=== PATIENT | male | born 1935 | race Caucasian/White ===

== ENCOUNTER 2017-12-11 16:21 | Inpatient (IN) | payer MEDICARE, BC ==
--- NOTE | 2017-12-11 16:45 | ED ---
General Adult HPI - General Chief complaint: Shortness of Breath Stated complaint: MALINI Time Seen by Provider: 12/11/17 16:26 Source: family, RN/MD, EMS, RN notes reviewed, old records reviewed Mode of arrival: wheelchair Limitations: altered mental status, physical limitation - History of Present Illness Initial comments: This is an 82-year-old male the ER for evaluation, patient's transfer patient accepted in transfer for respiratory failure COPD A. fib and CHF. Patient has severe shortness of breath tonight states much worse than normal, patient poor strain secondary to severe clinical condition - Related Data Home Medications Medication Instructions Recorded Confirmed Albuterol Nebulized [Ventolin 2.5 mg INHALATION RT-Q8H 11/10/14 12/11/17 Nebulized] Atenolol [Tenormin] 50 mg PO HS 11/10/14 12/11/17 Budesonide [Pulmicort Flexhaler] 1 - 2 puff INHALATION RT-BID 11/10/14 12/11/17 Cyanocobalamin [Vitamin B-12] 500 mcg PO BID 11/10/14 12/11/17 Montelukast [Singulair] 10 mg PO DAILY 11/10/14 12/11/17 Warfarin [Coumadin] 2.5 mg PO MOTUWETHFRSA 11/10/14 12/11/17 Warfarin [Coumadin] 5 mg PO POLLARD 11/10/14 12/11/17 Furosemide [Lasix] 40 mg PO DAILY 12/11/17 12/11/17 Ipratropium-Albuterol Nebulize 3 ml INHALATION RT-Q6H 12/11/17 12/11/17 [Duoneb 0.5 mg-3 mg/3 ml Soln] Allergies Allergy/AdvReac Type Severity Reaction Status Date / Time No Known Allergies Allergy Verified 12/11/17 16:38 Review of Systems ROS Statement: Those systems with pertinent positive or pertinent negative responses have been documented in the HPI. ROS Other: All systems not noted in ROS Statement are negative. Past Medical History Past Medical History: Atrial Fibrillation, Heart Failure, COPD, CVA/TIA, Osteoarthritis (OA), Prostate Disorder Additional Past Medical History / Comment(s): TIA-2006, home oxygen History of Any Multi-Drug Resistant Organisms: None Reported Additional Past Surgical History / Comment(s): PROSTATE SURGERY, JUSTA 11/11/2014 Past Anesthesia/Blood Transfusion Reactions: No Reported Reaction Past Psychological History: No Psychological Hx Reported Smoking Status: Former smoker Past Alcohol Use History: None Reported Past Drug Use History: None Reported - Past Family History Mother Additional Family Medical History / Comment(s): EMPHYSEMA General Exam Limitations: altered mental status, physical limitation General appearance: alert, in distress, obese Head exam: Present: atraumatic, normocephalic, normal inspection Eye exam: Present: normal appearance, PERRL, EOMI. Absent: scleral icterus, conjunctival injection, periorbital swelling ENT exam: Present: normal exam, mucous membranes moist Neck exam: Present: normal inspection. Absent: tenderness, meningismus, lymphadenopathy Respiratory exam: Present: respiratory distress, wheezes, accessory muscle use, decreased breath sounds, prolonged expiratory. Absent: rales, rhonchi, stridor Cardiovascular Exam: Present: normal rhythm, tachycardia, normal heart sounds. Absent: systolic murmur, diastolic murmur, rubs, gallop, clicks GI/Abdominal exam: Present: soft, normal bowel sounds. Absent: distended, tenderness, guarding, rebound, rigid Extremities exam: Present: normal inspection, full ROM, normal capillary refill. Absent: tenderness, pedal edema, joint swelling, calf tenderness Back exam: Present: normal inspection Neurological exam: Present: alert, oriented X3, CN II-XII intact Psychiatric exam: Present: normal affect, normal mood Skin exam: Present: warm, dry, intact, normal color. Absent: rash Course Vital Signs 12/11/17 16:22 Temperature 97.4 F L Pulse Rate 113 H Respiratory 26 H Rate Blood Pressure 136/72 O2 Sat by Pulse 81 L Oximetry - Reevaluation(s) Reevaluation #1: 12/11/17 16:44 Patient with severely low oxygen increased work of breathing here again placed on BiPAP oxygen level did improve the patient resting more comfortably. Critical Care Time Critical Care Time: Yes Total Critical Care Time: 31 Disposition Clinical Impression: Acute exacerbation of chronic obstructive airways disease, Acute pulmonary edema, Congestive heart failure, Hypoxia, Acute respiratory failure Disposition: ADMITTED IP TO THIS HOSP Condition: Serious Is patient prescribed a controlled substance at d/c from ED?: No Referrals: Mikael Nicole MD [Primary Care Provider] - 1-2 days
[2017-12-11 17:04] LABS: Basophils % (A) 0 %; Eosinophils % (A) 1 %; HCT 45.2 % (39.0-53.0); HGB 14.7 gm/dL (13.0-17.5); Lymphocytes # (A) 0.4 k/uL (1.0-4.8); Lymphocytes % (A) 6 %; MCH 32.6 pg (25.0-35.0); MCHC 32.5 g/dL (31.0-37.0); MCV 100.3 fL (80.0-100.0); Macrocytosis Slight; Mean Platelet Volume 8.4; Monocytes # (A) 0.3 k/uL (0-1.0); Monocytes % (A) 4 %; Neutrophils # (A) 6.5 k/uL (1.3-7.7); Neutrophils % (A) 88 %; Platelet Count 178 k/uL (150-450); RDW 13.6 % (11.5-15.5); WBC 7.4 k/uL (3.8-10.6)
[2017-12-11 17:16] LABS: ALT 35 U/L (21-72); AST 27 U/L (17-59); Albumin 4.1 g/dL (3.5-5.0); Alkaline Phosphatase 52 U/L (38-126); Blood Urea Nitrogen 21 mg/dL (9-20); Calcium 9.5 mg/dL (8.4-10.2); Chloride 89 mmol/L (98-107); Glucose 157 mg/dL (74-99); Phosphorus 4.8 mg/dL (2.5-4.5); Potassium 4.8 mmol/L (3.5-5.1); Sodium 141 mmol/L (137-145); Total Bilirubin 0.4 mg/dL (0.2-1.3); Total Protein 6.9 g/dL (6.3-8.2)
[2017-12-11 17:18] LABS: Creatine Kinase 61 U/L (55-170)
[2017-12-11 17:22] LABS: Anion Gap 11 mmol/L
[2017-12-11 17:25] LABS: Carbon Dioxide 41 mmol/L (22-30)
[2017-12-11 17:29] LABS: INR 1.8 (<1.2); Prothrombin Time 16.5 sec (9.0-12.0)
[2017-12-11 17:31] LABS: Troponin I <0.012 ng/mL (0.000-0.034)
[2017-12-11 17:32] LABS: Creatine Kinase MB 3.5 ng/mL (0.0-2.4)
[2017-12-11] MEDS: methylPREDNISolone SOD SUCCI 125 MG/2 ML VIAL IV SCH ×2 (18:36→23:13)
[2017-12-11] MEDS: FUROSEMIDE 10 MG/ML 4 ML VIAL IV SCH (20:17)
[2017-12-11] MEDS: IPRATROPIUM-ALBUTEROL 3 ML NEB INHALATION SCH (20:52)
[2017-12-12 06:04] LABS: Glucose,Whole Blood 132 mg/dL (75-99)
[2017-12-12] MEDS: INSULIN ASPART 100 UNIT/ML 1 ML 10 ML VIAL SQ SCH ×4 (06:12→21:11)
--- NOTE | 2017-12-12 06:13 | HP ---
HISTORY AND PHYSICAL DATE OF SERVICE: 12/11/2017 CHIEF COMPLAINT: The chief complaint is shortness of breath. HISTORY OF PRESENT ILLNESS: This 82-year-old gentleman with a past medical history of multiple medical problems including COPD, CHF, atrial fibrillation, being followed by Dr. Abiola Andino, was admitted to [facility] with complaints of shortness of breath. The patient had increase in shortness of breath and some change in mental status and patient was mostly unresponsive according to the family and the patient was found to have features of . Subsequently from the [facility], the patient was referred to [facility] and patient admitted for further evaluation and treatment. Patient was started on BiPAP 40%, 7 and14. The COPD and CHF was also considered as a cause of the present illness. Dr. Nicole is also following the patient closely. At the time of admission, the patient was found to have creatinine of 0.60 and the patient's saturation is 94% on BiPAP at this time. The patient unable to give coherent history because of BiPAP and change in mental status, most history by my discussion with staff and review of the chart and discussion with family members at the bedside. PAST MEDICAL HISTORY: History of atrial fibrillation, history of CHF, COPD, CVA, TIA, DJD, history of prostate disorder, history of TIA. MEDICATIONS: Medications include: 1. Albuterol 2.5 q.8. 2. Coumadin 5 mg p.o. Sunday. 3. Lasix 40 mg p.o. daily. 4. Vitamin B12, 500 mcg p.o. b.i.d. 5. Coumadin 2.5 mg Sunday, Sunday, Sunday, , Sunday, Sunday. 6. Singulair 10 mg daily. 7. DuoNeb q.6 hours. 8. Pulmicort 1 to 2 puffs b.i.d. 9. Tenormin 50 mg q.h.s. ALLERGIES: Allergies are none. FAMILY HISTORY: History of COPD, CHF, emphysema in the family. SOCIAL HISTORY: Previous history of smoking. Occasional alcohol intake. REVIEW OF SYSTEMS: Review of systems could not be taken at length because of the above-mentioned reasons. PHYSICAL EXAMINATION: Patient is conscious. Pulse 95. Mildly confused. Blood pressure 132/60, respirations 33, temperature 98.7, pulse ox 94% on BiPAP. HEENT: Conjunctivae normal. Oral mucosa moist. Neck is no jugular venous distention. No carotid bruit. No lymph node enlargement. CARDIOVASCULAR: S1, S2 muffled. RESPIRATORY: Breath sounds diminished in the bases. A few scattered rhonchi and crackles. The patient is on BiPAP. Expiratory wheezing also present. ABDOMEN: Soft, obese, nontender. No mass palpable. LEGS: No edema, no swelling. NERVOUS SYSTEM: Higher functions as mentioned earlier. Moves all 4 limbs. No focal motor or sensory deficits. LYMPHATICS: No lymphadenopathy of the neck, axillae or groin. SKIN: No ulcer, rash or bleeding. LABS: Labs are at this time WBC 7.4, hemoglobin 14.7, MCV 100.3. INR 1.8. ASSESSMENT: 1. Shortness of breath multifactorial with possible chronic obstructive pulmonary disease acute exacerbation as well as congestive heart failure acute exacerbation with acute hypoxic hypercarbic respiratory failure on BiPAP. 2. Bilateral lesions in the frontoparietal white matter. The CT scan elsewhere also showed mild lesions possibly indicating a stroke also which might explain the change in mental status, which could be multifactorial as well. 3. afib 4. djd 5. h/o nicotime dependence 6. metabolic encephalopathy RECOMMENDATIONS AND DISCUSSION: I would recommend intensive bronchodilators, IV steroids, empiric antibiotics, cardiology pulmonology consultations. I would also recommend evaluation by Neurology. Patient is not a candidate for MRI at this time. Currently patient on BiPAP. Once the patient is improved that may be an option. Otherwise resume the rest of medications, DVT prophylaxis. Overall prognosis extremely guarded at this time because of multiple complex medical issues, which I discussed at length with the family who understood and agreed and further recommendations to follow. A copy of dictation forwarded to Dr. Nicole who is the primary physician. MMODL / IJN: [id number] / ANDRES
[2017-12-12] MEDS: methylPREDNISolone SOD SUCCI 125 MG/2 ML VIAL IV SCH ×4 (06:14→23:11)
[2017-12-12 06:26] LABS: Basophils % (A) 0 %; Eosinophils % (A) 0 %; HCT 40.3 % (39.0-53.0); HGB 13.5 gm/dL (13.0-17.5); Lymphocytes # (A) 0.4 k/uL (1.0-4.8); Lymphocytes % (A) 10 %; MCH 32.8 pg (25.0-35.0); MCHC 33.4 g/dL (31.0-37.0); Mean Platelet Volume 8.3; Monocytes # (A) 0.2 k/uL (0-1.0); Monocytes % (A) 4 %; Neutrophils # (A) 3.5 k/uL (1.3-7.7); Neutrophils % (A) 84 %; Platelet Count 170 k/uL (150-450); RBC 4.11 m/uL (4.30-5.90); RDW 13.9 % (11.5-15.5); WBC 4.1 k/uL (3.8-10.6)
[2017-12-12 06:33] LABS: INR 2.2 (<1.2); Prothrombin Time 20.2 sec (9.0-12.0)
[2017-12-12 06:38] LABS: Blood Urea Nitrogen 19 mg/dL (9-20); Calcium 9.4 mg/dL (8.4-10.2); Chloride 86 mmol/L (98-107); Glucose 143 mg/dL (74-99); Potassium 4.6 mmol/L (3.5-5.1); Sodium 140 mmol/L (137-145)
[2017-12-12 06:45] LABS: Anion Gap 10 mmol/L
[2017-12-12 06:49] LABS: Carbon Dioxide 44 mmol/L (22-30)
[2017-12-12] MEDS: FORMOTEROL FUMARATE 20 MCG/2 ML NEBU INHALATION SCH ×2 (08:14→20:25)
[2017-12-12] MEDS: BUDESONIDE 1 MG/2 ML NEBU INHALATION SCH ×2 (08:14→20:25)
[2017-12-12] MEDS: IPRATROPIUM-ALBUTEROL 3 ML NEB INHALATION SCH ×4 (08:14→20:25)
[2017-12-12] MEDS ORDERED: HEPARIN SODIUM,PORCINE 5,000 UNIT/ML 1 ML VIAL SQ SCH (09:00)
[2017-12-12] MEDS: PANTOPRAZOLE 40 MG TABLET PO SCH (09:20)
[2017-12-12] MEDS: MONTELUKAST 10 MG TAB PO SCH (09:20)
[2017-12-12] MEDS: FUROSEMIDE 10 MG/ML 4 ML VIAL IV SCH (09:20)
[2017-12-12] MEDS: AZITHROMYCIN 500 MG TAB PO SCH (09:20)
[2017-12-12] MEDS: CYANOCOBALAMIN 500 MCG TAB PO SCH ×2 (09:20→21:11)
[2017-12-12 11:05] LABS: Hemoglobin A1C 5.7 % (4.0-6.0)
--- NOTE | 2017-12-12 11:36 | P.CNPUL ---
History of Present Illness Consult date: 12/12/17 Reason for consult: dyspnea, COPD, hypoxemia Chief complaint: Shortness of breath, altered mental status History of present illness: This is an 82-year-old gentleman who presented from an outside hospital with altered mental status and shortness of breath. History is taken from the family as the patient does not remember what happened to him. The patient states "my made me come." Per the patient's he had been short of breath for several days and tried to go to pulmonary rehab. The patient had hypoxemia as well as confusion. He was subsequently taken to [facility] and transferred to [facility]. The patient does follow with Dr. GUDELIA King in the office and saw him 3 weeks ago. He does have a history of COPD, CHF, atrial fibrillation. He uses duo nebs and Pulmicort at home. He also takes Singulair. He is complaining of wheezing. He denies cough. However his does note that he coughs up clear mucus but this has been ongoing for several years. He is a former smoker he used to smoke 2 packs per day for 50 years. He quit in 2006. He does wear oxygen at 2 L nasal cannula [id number]. 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 He is also complaining of right greater than left lower extremity swelling. The patient was placed on BiPAP overnight. He is currently off of BiPAP and is on 4 L nasal cannula. His mentation appears to be improving although he has no memory of the events from yesterday. Review of Systems All systems: negative Past Medical History Past Medical History: Atrial Fibrillation, Heart Failure, COPD, CVA/TIA, Osteoarthritis (OA), Prostate Disorder Additional Past Medical History / Comment(s): TIA-2003, home oxygen 2 liters n/c , hx atrial septal defect History of Any Multi-Drug Resistant Organisms: None Reported Past Surgical History: Heart Catheterization Additional Past Surgical History / Comment(s): PROSTATE SURGERY(turp), JUSTA 2014 percutaneous closure of atrial septal defect, anibal cataracts Past Anesthesia/Blood Transfusion Reactions: No Reported Reaction Smoking Status: Former smoker - Past Family History Father Family Medical History: Myocardial Infarction ([place]) Mother Family Medical History: Congestive Heart Failure (CHF), COPD Additional Family Medical History / Comment(s): EMPHYSEMA Medications and Allergies Home Medications Medication Instructions Recorded Confirmed Type Albuterol Nebulized [Ventolin 2.5 mg INHALATION RT-Q8H 11/10/14 12/11/17 History Nebulized] Atenolol [Tenormin] 50 mg PO HS 11/10/14 12/11/17 History Budesonide [Pulmicort Flexhaler] 1 - 2 puff INHALATION RT-BID 11/10/14 12/11/17 History Cyanocobalamin [Vitamin B-12] 500 mcg PO BID 11/10/14 12/11/17 History Montelukast [Singulair] 10 mg PO DAILY 11/10/14 12/11/17 History Warfarin [Coumadin] 2.5 mg PO MOTUWETHFRSA 11/10/14 12/11/17 History Warfarin [Coumadin] 5 mg PO POLLARD 11/10/14 12/11/17 History Furosemide [Lasix] 40 mg PO DAILY 12/11/17 12/11/17 History Ipratropium-Albuterol Nebulize 3 ml INHALATION RT-Q6H 12/11/17 12/11/17 History [Duoneb 0.5 mg-3 mg/3 ml Soln] Allergies Allergy/AdvReac Type Severity Reaction Status Date / Time No Known Allergies Allergy Verified 12/11/17 16:38 Physical Exam Osteopathic Statement: *. No significant issues noted on an osteopathic structural exam other than those noted in the History and Physical/Consult. Vitals: Vital Signs Temp Pulse Pulse Resp BP BP Pulse Ox 12/12/17 08:35 100 12/12/17 08:30 96 12/12/17 08:29 96 12/12/17 08:20 97.4 F L 90 20 125/79 92 L 12/12/17 08:17 92 12/12/17 04:00 96.9 F L 86 30 H 129/65 95 12/12/17 00:00 97.8 F 95 34 H 110/63 94 L 12/11/17 21:11 101 H 12/11/17 21:00 99 12/11/17 20:00 98.7 F 95 33 H 132/60 94 L 12/11/17 17:56 97.4 F L 113 H 26 H 136/72 81 L 12/11/17 16:41 26 H 12/11/17 16:22 97.4 F L 113 H 26 H 136/72 81 L Intake and Output 12/11/17 12/12/17 12/12/17 22:59 06:59 14:59 Output Total 925 600 Balance -925 -600 Output: Urine 925 600 Other: Voiding Method Urinal Urinal # Voids 1 1 Weight 83.915 kg 86 kg Gen.: Patient is alert, pleasantly confused Cardiovascular: Irregular rate and rhythm, S1/S2 Lungs: Diffuse bilateral wheezing Abdomen: Soft nontender nondistended positive bowel sounds Extremities: Right greater than left lower extremity edema Results - Laboratory Findings CBC and BMP: 12/12/17 06:00 12/12/17 06:00 PT/INR, D-dimer PT 20.2 sec (9.0-12.0) H 12/12/17 06:00 INR 2.2 (<1.2) H 12/12/17 06:00 Abnormal lab findings: Abnormal Labs 12/11/17 12/11/17 12/11/17 16:40 16:40 16:40 RBC MCV 100.3 H Lymphocytes # 0.4 L PT INR Chloride 89 L Carbon Dioxide 41 H* BUN 21 H Creatinine 0.60 L Glucose 157 H POC Glucose (mg/dL) Plasma Lactic Acid Ricco Phosphorus 4.8 H CK-MB (CK-2) 3.5 H* 12/11/17 12/11/17 12/12/17 16:40 16:40 06:00 RBC 4.11 L MCV Lymphocytes # 0.4 L PT 16.5 H INR 1.8 H Chloride Carbon Dioxide BUN Creatinine Glucose POC Glucose (mg/dL) Plasma Lactic Acid Ricco 2.5 H* Phosphorus CK-MB (CK-2) 12/12/17 12/12/17 12/12/17 06:00 06:00 06:02 RBC MCV Lymphocytes # PT 20.2 H INR 2.2 H Chloride 86 L Carbon Dioxide 44 H* BUN Creatinine 0.60 L Glucose 143 H POC Glucose (mg/dL) 132 H Plasma Lactic Acid Ricco Phosphorus CK-MB (CK-2) Assessment and Plan Assessment: Acute on chronic hypoxic and hypercapnic respiratory failure Acute exacerbation of COPD Metabolic encephalopathy History of tobacco abuse Atrial fibrillation with controlled ventricular response 2/4 SIRS with elevated lactic acid, suspect sepsis, source unclear History of CHF, diastolic Possible CVA Environmental ALLERGIES History of ASD, s/p repair Coumadin coagulopathy History of CVA/TIA Lower extremity edema Obesity Hyperglycemia O2 to maintain saturation greater than or equal to 90% Bipap nightly and PRN Duo nebs and Pulmicort/Perforomist Singulair Lower extremity Doppler ultrasound Chest x-ray now Blood, urine, sputum cultures ABX: Azithromycin and Rocephin Solumedrol taper Coumadin dosing for INR 2-3 GI and DVT prophylaxis Incentive spirometry and pulmonary hygiene CT brain - neurology recommendations Cardiology recommendations Echocardiogram and carotid dopplers pending Thank you for this consultation. We will continue to follow along.
--- NOTE | 2017-12-12 11:37 | P.CRDCN ---
History of Present Illness History of present illness: Mr. 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 He has normal coronary arteries per heart catheterization 2010. He follows with Dr. Quintero in the office. We have been asked to see him in consultation for symptoms of heart failure. He is somewhat of a poor historian, his is a the bedside giving history. Per his he has been getting increasing weak, fatigued and short of breath over the previous few days. She states he has been short of breath more so than usual and he has been dropping things, unable to feed himself and just generally weak. He attends pulmonary rehab twice per week and while at a session yesterday it was recommended he be evaluated in the ED. They went to [facility] and he was ultimately sent here for respiratory failure with low oxygen saturation in the low 80's. He was immediately placed on BiPAP and showed improvement in his breathing status as well as his mentation per the ED note. He was also started on antibiotics and IV lasix. CT of the brain was performed at [place] which raised some question of possible CVA, neurology has been consulted as well. He is seen and examined resting comfortably in bed in no acute distress. He denies ever having symptoms of chest pain, palpitations , nausea, vomiting or diaphoresis. He is currently on oxygen via nasal cannula. EKG reveals atrial fibrillation with controlled ventricular response, heart rate 86. Laboratory data reviewed, hgb 13.5, plt 170, INR 2.2, sodium 140, potassium 4.6 , creatinine 0.6, CO2 44, magnesium 2.0, lactic acid on admission 2.5 with repeat 2.0, cardiac enzymes negative x1, proBNP 1360. Current cardiac medications include Coumadin 5 mg daily on Sunday and 2.5 mg every other day of the week, Lasix 40 mg daily and atenolol 50 mg daily. Most recent echocardiogram performed in the office 04/26/2017 reveals normal ejection fraction, aortic sclerosis, moderate TR and moderate MR. Most recent carotid duplex performed in the office 2015 reveals mild disease b/ l ICA's. Review of Systems At the time of my exam: CONSTITUTIONAL: Denies fever. Denies chills. EYES: Denies blurred vision. Denies vision changes. Denies eye pain. EARS, NOSE, MOUTH & THROAT: Denies headache. Denies sore throat. Denies ear pain. CARDIOVASCULAR: Denies chest pain. Denies shortness of breath. Denies orthopnea. Denies PND. Denies palpitations. RESPIRATORY: Denies cough. GASTROINTESTINAL: Denies abdominal pain. Denies diarrhea. Denies constipation. Denies nausea. Denies vomiting. MUSCULOSKELETAL: Denies myalgias. INTEGUMENTARY: Denies pruitis. Denies rash. NEUROLOGIC: Denies numbness. Denies tingling. Denies weakness. PSYCHIATRIC: Denies anxiety. Denies depression. ENDOCRINE: Denies fatigue. Denies weight change. Denies polydipsia. Denies polyurina. GENITOURINARY: Denies burning, hematuria or urgency with micturation. HEMATOLOGIC: Denies history of anemia. Denies bleeding. Past Medical History Past Medical History: Atrial Fibrillation, Heart Failure, COPD, CVA/TIA, Osteoarthritis (OA), Prostate Disorder Additional Past Medical History / Comment(s): TIA-2003, home oxygen 2 liters n/c , hx atrial septal defect History of Any Multi-Drug Resistant Organisms: None Reported Past Surgical History: Heart Catheterization Additional Past Surgical History / Comment(s): PROSTATE SURGERY(turp), JUSTA 2014 percutaneous closure of atrial septal defect, anibal cataracts Past Anesthesia/Blood Transfusion Reactions: No Reported Reaction Smoking Status: Former smoker - Past Family History Father Family Medical History: Myocardial Infarction (LA) Mother Family Medical History: Congestive Heart Failure (CHF), COPD Additional Family Medical History / Comment(s): EMPHYSEMA Medications and Allergies Home Medications Medication Instructions Recorded Confirmed Type Albuterol Nebulized [Ventolin 2.5 mg INHALATION RT-Q8H 11/10/14 12/11/17 History Nebulized] Atenolol [Tenormin] 50 mg PO HS 11/10/14 12/11/17 History Budesonide [Pulmicort Flexhaler] 1 - 2 puff INHALATION RT-BID 11/10/14 12/11/17 History Cyanocobalamin [Vitamin B-12] 500 mcg PO BID 11/10/14 12/11/17 History Montelukast [Singulair] 10 mg PO DAILY 11/10/14 12/11/17 History Warfarin [Coumadin] 2.5 mg PO MOTUWETHFRSA 11/10/14 12/11/17 History Warfarin [Coumadin] 5 mg PO POLLARD 11/10/14 12/11/17 History Furosemide [Lasix] 40 mg PO DAILY 12/11/17 12/11/17 History Ipratropium-Albuterol Nebulize 3 ml INHALATION RT-Q6H 12/11/17 12/11/17 History [Duoneb 0.5 mg-3 mg/3 ml Soln] Allergies Allergy/AdvReac Type Severity Reaction Status Date / Time No Known Allergies Allergy Verified 12/11/17 16:38 Physical Exam Vitals: Vital Signs Temp Pulse Pulse Resp BP BP Pulse Ox 12/12/17 08:35 100 12/12/17 08:30 96 12/12/17 08:29 96 12/12/17 08:17 92 12/12/17 04:00 96.9 F L 86 30 H 129/65 95 12/12/17 00:00 97.8 F 95 34 H 110/63 94 L 12/11/17 21:11 101 H 12/11/17 21:00 99 12/11/17 20:00 98.7 F 95 33 H 132/60 94 L 12/11/17 17:56 97.4 F L 113 H 26 H 136/72 81 L 12/11/17 16:41 26 H 12/11/17 16:22 97.4 F L 113 H 26 H 136/72 81 L Intake and Output 12/11/17 12/12/17 12/12/17 22:59 06:59 14:59 Output Total 925 600 Balance -925 -600 Output: Urine 925 600 Other: Voiding Method Urinal # Voids 1 1 Weight 83.915 kg 86 kg Blood presure 129/65 heart rate 86 afebrile GENERAL: This is a 82-year-old male in no apparent distress at the time of my examination. HEENT: Head is atraumatic, normocephalic. Pupils are equal, round. Sclerae anicteric. Conjunctivae are clear. Mucous membranes of the mouth are moist. Neck is supple. There is no jugular venous distention. No carotid bruit is heard. LUNGS: Clear to auscultation no wheezes, rales or rhonchi. No chest wall tenderness is noted on palpation or with deep breathing. Diminished air entry bilaterally. HEART: Irregular rate and rhythm with systolic murmur at the apex, no rubs or gallops. S1 and S2 heard. ABDOMEN: Soft, nontender. Bowel sounds are heard. No organomegaly noted. EXTREMITIES: No evidence of peripheral edema and no calf tenderness noted. VASCULAR: Radial and dorsalis pedis pulses palpated, no evidence of clubbing. NEUROLOGIC: Patient is awake, alert and oriented 2-3. Unaware of events that brought him in to the hospital. Results 12/12/17 06:00 12/12/17 06:00 Cardiac Enzymes 12/11/17 12/11/17 Range/Units 16:40 16:40 AST 27 (17-59) U/L CK-MB (CK-2) 3.5 H* (0.0-2.4) ng/mL Troponin I <0.012 (0.000-0.034) ng/mL Coagulation 12/11/17 12/12/17 Range/Units 16:40 06:00 PT 16.5 H 20.2 H (9.0-12.0) sec APTT 26.0 (22.0-30.0) sec CBC 12/11/17 12/12/17 Range/Units 16:40 06:00 WBC 7.4 4.1 (3.8-10.6) k/uL RBC 4.50 4.11 L (4.30-5.90) m/uL Hgb 14.7 13.5 (13.0-17.5) gm/dL Hct 45.2 40.3 (39.0-53.0) % Plt Count 178 170 (150-450) k/uL Comprehensive Metabolic Panel 12/11/17 12/12/17 Range/Units 16:40 06:00 Sodium 141 140 (137-145) mmol/L Potassium 4.8 4.6 (3.5-5.1) mmol/L Chloride 89 L 86 L (98-107) mmol/L Carbon Dioxide 41 H* 44 H* (22-30) mmol/L BUN 21 H 19 (9-20) mg/dL Creatinine 0.60 L 0.60 L (0.66-1.25) mg/dL Glucose 157 H 143 H (74-99) mg/dL Calcium 9.5 9.4 (8.4-10.2) mg/dL AST 27 (17-59) U/L ALT 35 (21-72) U/L Alkaline Phosphatase 52 (38-126) U/L Total Protein 6.9 (6.3-8.2) g/dL Albumin 4.1 (3.5-5.0) g/dL Current Medications Generic Name Dose Route Start Last Admin Trade Name Jesus PRN Reason Stop Dose Admin Albuterol/Ipratropium 3 ml 12/11/17 20:00 12/12/17 08:14 Duoneb 0.5 Mg-3 Mg/3 Ml Soln INHALATION 3 ml RT-QID AUDREY Administration Atenolol 50 mg 12/12/17 21:00 Tenormin PO HS [facility] Azithromycin 500 mg 12/12/17 09:00 12/12/17 09:20 Zithromax PO 500 mg DAILY AUDREY Administration Budesonide 1 mg 12/12/17 08:00 12/12/17 08:14 Pulmicort INHALATION 1 mg RT-BID AUDREY Administration Cyanocobalamin 500 mcg 12/12/17 09:00 12/12/17 09:20 Vitamin B-12 PO 500 mcg BID AUDREY Administration Formoterol Fumarate 20 mcg 12/12/17 08:00 12/12/17 08:14 Perforomist INHALATION 20 mcg RT-BID AUDREY Administration Furosemide 40 mg 12/11/17 21:00 12/12/17 09:20 Lasix IV 40 mg Q12H AUDREY Administration Insulin Aspart 0 unit 12/12/17 07:30 12/12/17 06:12 Novolog SQ Not Given ACHS [facility] Protocol Methylprednisolone Sodium Succinate 60 mg 12/11/17 18:00 12/12/17 06:14 Solu-Medrol IV 60 mg Q6HR AUDREY Administration Montelukast Sodium 10 mg 12/12/17 09:00 12/12/17 09:20 Singulair PO 10 mg DAILY AUDREY Administration Pantoprazole Sodium 40 mg 12/12/17 07:30 12/12/17 09:20 Protonix PO 40 mg [id number]-[id number] AUDREY Administration Warfarin Sodium 5 mg 12/16/17 18:00 Coumadin PO [email or web address] AUDREY Warfarin Sodium 2.5 mg 12/12/17 18:00 Coumadin PO [email or web address] [facility] Intake and Output 12/11/17 12/12/17 12/12/17 22:59 06:59 14:59 Output Total 925 600 Balance -925 -600 Output: Urine 925 600 Other: Voiding Method Urinal # Voids 1 1 Weight 83.915 kg 86 kg 12/12/17 06:00 12/12/17 06:00 Assessment and Plan Assessment: ASSESSMENT 1. Acute hypoxic, hypercapnic respiratory failure 2. Chronic persistent atrial fibrillation on mcc anticoagulation 3. Severe end stage COPD on home oxygen 4. Hypertension 5. History of ASD closure with amplatzer device 2014 6. Former nicotine dependence PLAN Obtain 2D echocardiogram and doppler study to assess cardiac structure and function. No evidence of acute heart failure. Ongoing medical management. Continue with coumadin, atenolol and PO lasix. Thank you kindly for this consultation. Nurse Practitioner note has been reviewed, I agree with a documented findings and plan of care. Patient was seen and examined.
--- NOTE | 2017-12-12 11:49 | XR ---
EXAMINATION TYPE: XR chest 1V portable DATE OF EXAM: 12/12/2017 HISTORY: Shortness of breath. COMPARISON: 12/12/2014 TECHNIQUE: Single view of the chest is submitted. FINDINGS: Demonstrated are scattered senescent parenchymal change. There is no evidence for focal infiltrate. The heart is stable. Hilar and mediastinal structures are within normal limits. Degenerative changes are seen of the dorsal spine. IMPRESSION: 1. Chronic changes without evidence for acute pulmonary disease.
[2017-12-12 11:56] LABS: Glucose,Whole Blood 234 mg/dL (75-99)
--- NOTE | 2017-12-12 13:31 | CT ---
EXAMINATION TYPE: CT brain wo con DATE OF EXAM: 12/12/2017 COMPARISON: NONE HISTORY: Altered mental status CT DLP: 1047.10 mGycm Automated exposure control for dose reduction was used. TECHNIQUE: CT scan of the head is performed without contrast. FINDINGS: There is no acute intracranial hemorrhage or midline shift identified. There is diffuse v entricular and sulcal prominence consistent with diffuse age-related cerebral atrophy. There is low- attenuation in the periventricular white matter consistent with chronic small vessel ischemic change. The globes are intact and the visualized sinuses are clear other than a left maxillary inferior sin us 8mm mucosal retention cyst. IMPRESSION: No acute intracranial hemorrhage or midline shift. There is diffuse age-related cerebra l atrophy and chronic small vessel ischemic change noted.
[2017-12-12 14:35] VITALS: BMI 26.4
--- NOTE | 2017-12-12 14:45 | ECHOF ---
Referral Reason:Stroke MEASUREMENTS -------- HEIGHT: 162.6 cm WEIGHT: 85.7 kg BP: 129/65 RVIDd: 5.1 cm (< 3.3) IVSd: 1.3 cm (0.6 - 1.1) LVIDd: 4.5 cm (3.9 - 5.3) LVPWd: 1.0 cm (0.6 - 1.1) IVSs: 1.4 cm LVIDs: 3.0 cm LVPWs: 1.6 cm LA Diam: 4.8 cm (2.7 - 3.8) LAESV Index (A-L): 59.65 ml/m Ao Diam: 3.8 cm (2.0 - 3.7) MV EXCURSION: 18.351 mm (> 18.000) MV EF SLOPE: 120 mm/s (70 - 150) EPSS: 0.6 cm MV E Thomas: 1.10 m/s MV DecT: 115 ms MV A Thomas: 0.00 m/s MV E/A Ratio: 250.54 RAP: 15.00 mmHg RVSP: 60.88 mmHg FINDINGS -------- Atrial fibrillation. This was a technically adequate study. The left ventricular size is normal. There is borderline concentric left ventricular hypertrophy. Overall left ventricular systolic function is low-normal with, an EF between 50 - 55 %. The right ventricle is severely enlarged. The right ventricular systolic function is mildly impaire d. LA is severely dilated >40 ml/m2 The right atrial size is normal. There is an interatrial closure device in place without evidence of shunt. There is mild aortic valve sclerosis. Mild mitral annular calcification present. Qrqf-rb-togifhib mitral regurgitation is present. Mild tricuspid regurgitation present. There is moderate to severe pulmonary hypertension. The rig ht ventricular systolic pressure, as measured by Doppler, is 60.88mmHg. Trace/mild (physiologic) pulmonic regurgitation. The aortic root size is normal. The inferior vena cava is mildly dilated. There is no pericardial effusion. CONCLUSIONS -------- 1. Atrial fibrillation. 2. This was a technically adequate study. 3. The left ventricular size is normal. 4. There is borderline concentric left ventricular hypertrophy. 5. Overall left ventricular systolic function is low-normal with, an EF between 50 - 55 %. 6. The right ventricle is severely enlarged. 7. The right ventricular systolic function is mildly impaired. 8. LA is severely dilated >40 ml/m2 9. The right atrial size is normal. 10. There is an interatrial closure device in place without evidence of shunt. 11. There is mild aortic valve sclerosis. 12. Mild mitral annular calcification present. 13. Kelb-tz-rxxahcva mitral regurgitation is present. 14. Mild tricuspid regurgitation present. 15. There is moderate to severe pulmonary hypertension. 16. Trace/mild (physiologic) pulmonic regurgitation. 17. The aortic root size is normal. 18. The inferior vena cava is mildly dilated. 19. There is no pericardial effusion. OPERATIONS ACCOUNTANT: Lucille Narvaez RDCS
--- NOTE | 2017-12-12 15:41 | US ---
EXAMINATION TYPE: US carotid duplex BILAT DATE OF EXAM: 12/12/2017 COMPARISON: NONE CLINICAL HISTORY: stroke. Possible stroke yesterday. EXAM MEASUREMENTS: RIGHT: Peak Systolic Velocity (PSV) cm/sec ----- Right CCA: 70.9 ----- Right ICA: 104.3 ----- Right ECA: 106.9 ICA/CCA ratio: 1.5 RIGHT: End Diastole cm/sec ----- Right CCA: 11.1 ----- Right ICA: 24.1 ----- Right ECA: 4.7 LEFT: Peak Systolic Velocity (PSV) cm/sec ----- Left CCA: 83.1 ----- Left ICA: 45.3 ----- Left ECA: 92.2 ICA/CCA ratio: 0.5 LEFT: End Diastole cm/sec ----- Left CCA: 11.7 ----- Left ICA: 11.3 ----- Left ECA: 16.4 VERTEBRALS (direction of flow): Right Vertebral: Antegrade Left Vertebral: Antegrade Rhythm: Arrhythmia IMPRESSION: No elevated velocities or significant stenosis. Bilateral wall thickening. Plaque seen in right ECA, ICA and bilateral bulbs. Criteria for Assigning % of Stenosis / Diameter reduction (Estimation based on the indirect measurements of the internal carotid artery velocities (ICA PSV). 1. Normal (no stenosis)=ICA PSV < 125 cm/s: ratio < 2.0: ICA EDV<40 cm/s. 2. Less than 50% stenosis=ICA PSV < 125 cm/s: ratio < 2.0: ICA EDV<40 cm/s. 3. 50 to 69% stenosis=ICA PSV of 125 to 230 cm/s: ration 2.0 ? 4.0: ICA EDV 40-100 cm/s. 4. Greater than 70% stenosis to near occlusion= ICA PSV > 230 cm/s: ratio > 4.0: ICA EDV > 100 cm/s. 5. Near occlusion= ICA PSV velocities may be low or undetectable: variable ratio and ICA EDV. 6. Total occlusion=unable to detect flow.
--- NOTE | 2017-12-12 15:41 | US ---
EXAMINATION TYPE: US venous doppler duplex LE BI DATE OF EXAM: 12/12/2017 3:20 PM COMPARISON: NONE CLINICAL HISTORY: rule out DVT. Patient states right leg appears bigger than left. No hx of blood cl ots. No pain. No redness. SIDE PERFORMED: Bilateral TECHNIQUE: The lower extremity deep venous system is examined utilizing real time linear array sonog duane with graded compression, doppler sonography and color-flow sonography. VESSELS IMAGED: External Iliac Vein (EIV) Common Femoral Vein Deep Femoral Vein Greater Saphenous Vein * Femoral Vein Popliteal Vein Proximal Calf Veins (* superficial vessels) Grayscale, color doppler, spectral doppler imaging performed of the deep veins of the lower extremiti es. There is normal flow, compressibility, vascular waveforms. Right Leg: Negative for DVT Left Leg: Negative for DVT IMPRESSION: No evidence for DVT.
[2017-12-12 15:49] LABS: Appearance,Urine Clear (Clear); Bilirubin,Urine Negative (Negative); Blood,Urine Negative (Negative); Color,Urine Yellow; Glucose,Urine (UA) Negative (Negative); Ketones,Urine Negative (Negative); Leukocyte Esterase,Urine Negative (Negative); Nitrite,Urine Negative (Negative); PH, Urine 6.5 (5.0-8.0); Protein,Urine Negative (Negative); Urobilinogen,Urine <2.0 mg/dL (<2.0)
[2017-12-12 16:37] LABS: Glucose,Whole Blood 131 mg/dL (75-99)
--- NOTE | 2017-12-12 17:07 | PN ---
PROGRESS NOTE DATE OF SERVICE: 12/12/2017 This 82-year-old gentleman referred from [facility] was admitted with shortness of breath which is probably multifactorial, COPD acute exacerbation. Patient also had acute hypoxic hypercarbic respiratory failure. Patient is on BiPAP last night. Yesterday, the patient is much better, more alert. The patient also has some confusion elsewhere. The possibility of stroke was considered, but the repeat CAT scan showed diffuse atrophy with not much objective changes. The patient closely monitored by Cardiology and Pulmonology also. Two-D echo showed multiple valve abnormalities , normal ejection fraction. Chronic diastolic dysfunction was suspected. Dr. Nicole is following the patient in the outpatient setting. As mentioned earlier patient is on BiPAP last night, currently saturating well on nasal cannula. The neurovascular workup is underway. Neurology consultation also pending at this time. PAST MEDICAL HISTORY: Reviewed. REVIEW OF SYSTEMS: CARDIOVASCULAR: No angina. RESPIRATORY: As mentioned earlier. GI: No nausea. : No dysuria. NERVOUS SYSTEM: No numbness or weakness. CURRENT MEDICATIONS: Reviewed and include: 1. DuoNeb q.i.d. and p.r.n. 2. Tenormin 50 mg q.6. 3. Zithromax 500 mg daily. 4. Pulmicort 1 mg b.i.d. 5. Vitamin B12 500 mcg p.o. 6. Perforomist 20 mcg b.i.d. 7. Lasix 40 mg p.o. daily. 8. NovoLog scale. 9. Solu-Medrol 60 IV q.6 hours. 10.Singulair. 11.Protonix. 12.Coumadin 2.5 mg and 5 mg. PHYSICAL EXAM: Patient is alert, oriented x3. Pulse 104, blood pressure 120/60, respiration 18, temperature 97.7, pulse ox 98% on 4 L. HEENT: Conjunctivae normal. Oral mucosa moist. Neck is no jugular venous distention. No carotid bruit. No lymph node enlargement. CARDIOVASCULAR: S1, S2. No S3, no S4. RESPIRATORY: Breath sounds diminished in the bases. A few scattered rhonchi, expiratory wheezing and crackles. ABDOMEN: Soft, nontender. No mass palpable. LEGS: No edema, no swelling. NERVOUS SYSTEM: Higher functions as mentioned earlier. Moves all 4 limbs. No focal motor or sensory deficits. LYMPHATICS: No lymphadenopathy in the neck, axillae, groin. SKIN: No ulcer, rash or bleeding. LABS: CBC within normal limits. INR is 2.2. Sodium 140, potassium 4.6, CO2 is 44, glucose 143 and 234 and NT proBNP is 1360. ASSESSMENT: 1. Shortness of breath with possible chronic obstructive pulmonary disease acute exacerbation with acute hypoxic hypercapnic respiratory failure with acute purulent tracheobronchitis. 2. Change in mental status, possible acute metabolic encephalopathy with_of bilateral frontal lobe lesions. 3. Possible congestive heart failure with chronic diastolic dysfunction. 4. History of atrial fibrillation. 5. History of degenerative joint disease. 6. History of prostate disorder. 7. History of transient ischemic attack. 8. Remote history of nicotine dependence. RECOMMENDATIONS AND DISCUSSION: This 82-year-old gentleman who presented with multiple complex medical issues, we will monitor the patient closely, continue the current management and treatment. Otherwise at this time, I recommend continue with current medications, neurovascular workup and if neurovascular workup is positive also recommend to add antiplatelet agents. Closely monitor with the current medications. Intensive bronchodilator treatment. Broad - spectrum IV antibiotics. Closely monitor. IV steroids. Further recommendations to follow. MMODL / IJN: [id number] / ANDRES
[2017-12-12] MEDS: cefTRIAXone IN SWFI 1,000 MG/10 ML SYRINGE IVP SCH (17:08)
[2017-12-12] MEDS: WARFARIN 2.5 MG TAB PO SCH (17:09)
[2017-12-12 20:29] LABS: Glucose,Whole Blood 233 mg/dL (75-99)
[2017-12-12] MEDS: ATENOLOL 50 MG TAB PO SCH (21:11)
[2017-12-13 06:20] LABS: Basophils % (A) 0 %; Eosinophils # (A) 0.1 k/uL (0-0.7); Eosinophils % (A) 1 %; HCT 40.1 % (39.0-53.0); HGB 13.5 gm/dL (13.0-17.5); Lymphocytes # (A) 0.5 k/uL (1.0-4.8); Lymphocytes % (A) 5 %; MCH 33.1 pg (25.0-35.0); MCHC 33.6 g/dL (31.0-37.0); MCV 98.5 fL (80.0-100.0); Mean Platelet Volume 7.8; Monocytes # (A) 0.6 k/uL (0-1.0); Monocytes % (A) 6 %; Neutrophils # (A) 8.8 k/uL (1.3-7.7); Neutrophils % (A) 88 %; Platelet Count 195 k/uL (150-450); RBC 4.07 m/uL (4.30-5.90); RDW 13.7 % (11.5-15.5)
[2017-12-13 06:26] LABS: Glucose,Whole Blood 131 mg/dL (75-99)
[2017-12-13] MEDS: PANTOPRAZOLE 40 MG TABLET PO SCH (06:29)
[2017-12-13] MEDS: INSULIN ASPART 100 UNIT/ML 1 ML 10 ML VIAL SQ SCH ×4 (06:29→21:31)
[2017-12-13] MEDS: methylPREDNISolone SOD SUCCI 125 MG/2 ML VIAL IV SCH ×2 (06:29→13:13)
[2017-12-13 06:31] LABS: INR 2.3 (<1.2); Prothrombin Time 20.4 sec (9.0-12.0)
[2017-12-13 06:34] LABS: Anion Gap 10 mmol/L; Blood Urea Nitrogen 27 mg/dL (9-20); Calcium 9.1 mg/dL (8.4-10.2); Chloride 88 mmol/L (98-107); Glucose 138 mg/dL (74-99); Potassium 4.8 mmol/L (3.5-5.1); Sodium 138 mmol/L (137-145)
[2017-12-13 07:46] LABS: Carbon Dioxide 40 mmol/L (22-30)
[2017-12-13] MEDS: FORMOTEROL FUMARATE 20 MCG/2 ML NEBU INHALATION SCH ×2 (08:15→20:52)
[2017-12-13] MEDS: BUDESONIDE 1 MG/2 ML NEBU INHALATION SCH ×2 (08:15→20:52)
[2017-12-13] MEDS: IPRATROPIUM-ALBUTEROL 3 ML NEB INHALATION SCH ×4 (08:15→20:52)
--- NOTE | 2017-12-13 08:26 | XR ---
EXAMINATION TYPE: XR chest 1V portable DATE OF EXAM: 12/13/2017 COMPARISON: 12/12/2017 INDICATION: CHF TECHNIQUE: Single frontal view of the chest is obtained. FINDINGS: The heart size is at the upper limits of normal for size.. The pulmonary vasculature is normal. There is a mild infiltrate within the right upper lobe. Correlate for atelectasis. Some elevation of the minor fissure may be present. Lungs are otherwise clear. IMPRESSION: 1. Mild right upper lobe infiltrate. Correlate for atelectasis. Pneumonia should be considered within the differential.
[2017-12-13] MEDS: MONTELUKAST 10 MG TAB PO SCH (09:26)
[2017-12-13] MEDS: CYANOCOBALAMIN 500 MCG TAB PO SCH ×2 (09:26→20:26)
[2017-12-13] MEDS: AZITHROMYCIN 500 MG TAB PO SCH (09:26)
[2017-12-13] MEDS: FUROSEMIDE 40 MG TAB PO SCH (09:26)
[2017-12-13] MEDS: cefTRIAXone IN SWFI 1,000 MG/10 ML SYRINGE IVP SCH (09:31)
--- NOTE | 2017-12-13 10:53 | CONS ---
CONSULTATION DATE OF CONSULTATION: 12/12/2017 CHIEF COMPLAINT: Altered mental status. HISTORY OF PRESENT ILLNESS: Mr. Fountain is a pleasant 82-year-old male, who is being evaluated today on 12/12/2017 by the Neurology Service per the request of Dr. Alcazar for altered mental status. The patient was initially brought into [facility] with the complaints of shortness of breath and confusion. The patient was minimally responsive and drowsy. He was then transferred to [facility] for further management. He was initially placed on BiPAP 40% which improved his cognitive symptoms. The patient had lower extremity edema concerning for congestive heart failure exacerbation. His BNP was elevated at 1,360. The patient was given diuretics and his symptoms improved. At the time of my evaluation, he is much more awake and alert. He is still somewhat disoriented. According to the family, the patient has been having significant short-term memory loss over the past couple of years. He has not been worked up for this or treated for this. A CT scan of the brain was done on admission which showed generalized atrophy and small-vessel ischemic changes. His carotid Doppler showed bilateral plaques but no hemodynamically significant stenosis. His CBC and urinalysis were normal. His INR was therapeutic at 2.2. The patient does have history of atrial fibrillation. His comprehensive metabolic profile initially showed elevated bicarb at 44, and low chloride at 86. His urinalysis was normal. PAST MEDICAL HISTORY: Congestive heart failure, chronic obstructive pulmonary disease, degenerative joint disease, benign prostatic hypertrophy, history of transient ischemic attack, atrial fibrillation. SOCIAL HISTORY: The patient is a former smoker. He occasionally drinks alcohol. He denies any drug use. FAMILY HISTORY: Positive for heart disease and emphysema. HOME MEDICATIONS: Reviewed in the chart. ALLERGIES: No known drug allergies. REVIEW OF SYSTEMS: CONSTITUTIONAL: Positive for fatigue. EYES: Negative. ENT: Positive for chronic diminished hearing. CARDIOVASCULAR: As mentioned above. RESPIRATORY: As mentioned above. NEUROLOGICAL: As mentioned above. He denies any lateralizing numbness or weakness. GASTROINTESTINAL: Negative. GENITOURINARY: Negative. PSYCHIATRIC: As mentioned above. DERMATOLOGICAL: Negative. MUSCULOSKELETAL: Positive for occasional joint pain. ENDOCRINE: Negative. PHYSICAL EXAM: Vital signs show a temperature of 97.7, pulse 105, respiration 18, blood pressure 121/68. GENERAL APPEARANCE: The patient is a well-developed elderly male who appears to be in no acute distress. HEENT: Normocephalic, atraumatic, no facial asymmetry is seen. NECK: Supple with no masses felt. CARDIOVASCULAR: Irregularly irregular rhythm with a normal rate. ABDOMEN: Nontender, nondistended. Extremities showed trace edema with no clubbing seen. NEUROLOGICAL EXAM: The patient is awake and oriented to person, only. He thought he was in [place] and thought it was the year 1981. Speech and language are normal. The patient follows commands appropriately. No lateralizing weakness is seen. Sensory exam was normal to light touch in all 4 extremities. Postural tremors are seen. No facial asymmetry is noticed on cranial nerve testing. IMPRESSION: 1. Altered mental status. 2. Hypoxic encephalopathy, improving. 3. Chronic short-term memory loss. 4. Congestive heart failure exacerbation. 5. Small vessel ischemic disease. 6. Atrial fibrillation. RECOMMENDATION: The patient's altered mental status and drowsiness was likely due to hypoxia as he did have congestive heart failure exacerbation. His symptoms have improved and he is quite awake and alert at this time. He is still disoriented, but the patient appears to have a baseline dementia that has not been worked up or treated. He will need further outpatient workup for this. An EEG has been ordered. I will also order a thyroid function panel and vitamin B12 level. Cardiology and pulmonology are following. Continue the rest of your current workup and management. I will continue to follow with you. Further recommendations to follow. Thank you for allowing me to participate in the care of your patient. If you have any questions, please feel free to contact me. SHIRIN / MARSHAN: [id number] /
--- NOTE | 2017-12-13 11:01 | P.PN ---
Subjective Progress Note Date: 12/13/17 HPI: This is an 82-year-old gentleman who presented from an outside hospital with altered mental status and shortness of breath. History is taken from the family as the patient does not remember what happened to him. The patient states "my made me come." Per the patient's he had been short of breath for several days and tried to go to pulmonary rehab. The patient had hypoxemia as well as confusion. He was subsequently taken to [facility] and transferred to [facility]. The patient does follow with Dr. GDUELIA King in the office and saw him 3 weeks ago. He does have a history of COPD, CHF, atrial fibrillation. He uses duo nebs and Pulmicort at home. He also takes Singulair. He is complaining of wheezing. He denies cough. However his does note that he coughs up clear mucus but this has been ongoing for several years. He is a former smoker he used to smoke 2 packs per day for 50 years. He quit in 2006. He does wear oxygen at 2 L nasal cannula [id number]. 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 He is also complaining of right greater than left lower extremity swelling. The patient was placed on BiPAP overnight. He is currently off of BiPAP and is on 4 L nasal cannula. His mentation appears to be improving although he has no memory of the events from yesterday. Interval history: 12/13/2017- patient is being seen in evaluated on rounds today. He is resting up in bed on 4 L of supplemental oxygen. He utilizes 2 L of oxygen at home. His chest x-ray was reviewed from this morning and does show a right upper lobe infiltrate/atelectasis correlate for pneumonia. Bilateral lower extremity Dopplers from yesterday are negative. He continues on antibiotics and steroids. Continues to have shortness of breath with exertion and activity. Has had a cough that is nonproductive and sputum will be sent down to the lab. He is afebrile family is at bedside updated on plan of care no further complaints. Objective - Vital Signs Vital signs: Vital Signs Temp 97.6 F 12/13/17 09:20 Pulse 83 12/13/17 09:20 Resp 20 12/13/17 09:20 BP 113/63 12/13/17 09:20 Pulse Ox 93 L 12/13/17 09:20 Intake & Output 12/12/17 12/13/17 12/13/17 18:59 06:59 18:59 Intake Total 1250 240 Output Total 600 500 Balance 1250 -600 -260 Weight 86 kg 85.2 kg Intake: Oral 1250 240 Output: Urine 600 500 Other: Voiding Method Urinal Urinal # Voids 1 - Exam Gen.: Patient is alert, pleasantly confused Cardiovascular: Irregular rate and rhythm, S1/S2 Lungs: Diffuse bilateral wheezing Abdomen: Soft nontender nondistended positive bowel sounds Extremities: Right greater than left lower extremity edema - Labs CBC & Chem 7: 12/13/17 06:05 12/13/17 06:05 Labs: Abnormal Lab Results - Last 24 Hours (Table) 12/12/17 12/12/17 12/12/17 Range/Units 11:54 16:34 20:28 RBC (4.30-5.90) m/uL Neutrophils # (1.3-7.7) k/uL Lymphocytes # (1.0-4.8) k/uL PT (9.0-12.0) sec INR (<1.2) Chloride (98-107) mmol/L Carbon Dioxide (22-30) mmol/L BUN (9-20) mg/dL Creatinine (0.66-1.25) mg/dL Glucose (74-99) mg/dL POC Glucose (mg/dL) 234 H 131 H 233 H (75-99) mg/dL 12/13/17 12/13/17 12/13/17 Range/Units 06:05 06:05 06:05 RBC 4.07 L (4.30-5.90) m/uL Neutrophils # 8.8 H (1.3-7.7) k/uL Lymphocytes # 0.5 L (1.0-4.8) k/uL PT 20.4 H (9.0-12.0) sec INR 2.3 H (<1.2) Chloride 88 L (98-107) mmol/L Carbon Dioxide 40 H* (22-30) mmol/L BUN 27 H (9-20) mg/dL Creatinine 0.61 L (0.66-1.25) mg/dL Glucose 138 H (74-99) mg/dL POC Glucose (mg/dL) (75-99) mg/dL 12/13/17 Range/Units 06:24 RBC (4.30-5.90) m/uL Neutrophils # (1.3-7.7) k/uL Lymphocytes # (1.0-4.8) k/uL PT (9.0-12.0) sec INR (<1.2) Chloride (98-107) mmol/L Carbon Dioxide (22-30) mmol/L BUN (9-20) mg/dL Creatinine (0.66-1.25) mg/dL Glucose (74-99) mg/dL POC Glucose (mg/dL) 131 H (75-99) mg/dL Microbiology - Last 24 Hours (Table) 12/12/17 13:55 Urine Culture - Preliminary Urine,Voided 12/11/17 16:40 Blood Culture - Preliminary Blood No Growth after 24 hours Assessment and Plan Assessment: Assessment Acute on chronic hypoxic and hypercapnic respiratory failure Acute exacerbation of COPD Metabolic encephalopathy History of tobacco abuse Atrial fibrillation with controlled ventricular response 2/4 SIRS with elevated lactic acid, suspect sepsis, source unclear History of CHF, diastolic Possible CVA Environmental ALLERGIES History of ASD, s/p repair Coumadin coagulopathy History of CVA/TIA Lower extremity edema Obesity Hyperglycemia Plan O2 to maintain saturation greater than or equal to 90% Bipap nightly and PRN Duo nebs and Pulmicort/Perforomist Singulair Lower extremity Doppler ultrasound Chest x-ray now Blood, urine, sputum cultures ABX: Azithromycin and Rocephin Solumedrol taper Coumadin dosing for INR 2-3 GI and DVT prophylaxis Incentive spirometry and pulmonary hygiene CT brain - neurology recommendations Cardiology recommendations Echocardiogram and carotid dopplers reviewed Patient did have a PSG in 2010 which showed no evidence of sleep disorder breathing Thank you for this consultation. We will continue to follow along. I performed an examination of the patient and discussed their management with the nurse practitioner. I have reviewed the nurse practitioner's note and agree with the documented findings and plan of care.
--- NOTE | 2017-12-13 11:42 | P.PN ---
Subjective Progress Note Date: 12/13/17 Mr. Fountain is a pleasant 82-year-old male past medical history significant for hypertension, atrial fibrillation on custodial anticoagulation with coumadin, COPD on home oxygen, history of ASD closure with amplatzer device 2014 and former tobacco use. He has normal coronary arteries per heart catheterization 2010. He follows with Dr. Quintero in the office. We have been asked to see him in consultation for symptoms of heart failure. He is somewhat of a poor historian, his is a the bedside giving history. Per his he has been getting increasing weak, fatigued and short of breath over the previous few days. She states he has been short of breath more so than usual and he has been dropping things, unable to feed himself and just generally weak. He attends pulmonary rehab twice per week and while at a session yesterday it was recommended he be evaluated in the ED. They went to [facility] and he was ultimately sent here for respiratory failure with low oxygen saturation in the low 80's. He was immediately placed on BiPAP and showed improvement in his breathing status as well as his mentation per the ED note. He was also started on antibiotics and IV lasix. CT of the brain was performed at [place] which raised some question of possible CVA, neurology has been consulted as well. He is seen and examined resting comfortably in bed in no acute distress. He denies ever having symptoms of chest pain, palpitations , nausea, vomiting or diaphoresis. He is currently on oxygen via nasal cannula. EKG reveals atrial fibrillation with controlled ventricular response, heart rate 86.Laboratory data reviewed, hgb 13.5, plt 170, INR 2.2, sodium 140, potassium 4.6, creatinine 0.6, CO2 44, magnesium 2.0, lactic acid on admission 2.5 with repeat 2.0, cardiac enzymes negative x1, proBNP 1360. Current cardiac medications include Coumadin 5 mg daily on Sunday and 2.5 mg every other day of the week, Lasix 40 mg daily and atenolol 50 mg daily.Most recent echocardiogram performed in the office 04/26/2017 reveals normal ejection fraction, aortic sclerosis, moderate TR and moderate MR.Most recent carotid duplex performed in the office 2015 reveals mild disease b/l ICA's. 12/13/2017 Patient was seen and examined this morning, breathing is improving. Let pressure 112/62, heart rate in the 80s, 93% on 4 L of oxygen. White blood cell count 10.0, hemoglobin 13.5, platelet count 195. Pro time 20.4 with an INR of 2.3. Sodium 138, potassium 4.8, BUN 27, creatinine 0.6. Echocardiogram with Doppler study was performed which revealed an ejection fraction of 50-55%. Mild to moderate mitral regurg moderate severe pulmonary hypertension. Objective - Vital Signs Vital signs: Vital Signs Temp 97.6 F 12/13/17 09:20 Pulse 85 12/13/17 11:30 Resp 20 12/13/17 09:20 BP 113/63 12/13/17 09:20 Pulse Ox 93 L 12/13/17 09:20 Intake & Output 12/12/17 12/13/17 12/13/17 18:59 06:59 18:59 Intake Total 1250 240 Output Total 600 500 Balance 1250 -600 -260 Weight 86 kg 85.2 kg Intake: Oral 1250 240 Output: Urine 600 500 Other: Voiding Method Urinal Urinal # Voids 1 - Exam PHYSICAL EXAMINATION: GENERAL: 82-year-old gentleman in no apparent distress at the time of my examination HEENT: Head is atraumatic, normocephalic. Pupils equal, round. Sclera anicteric. Conjunctiva are clear. Mucous membranes of the mouth are moist. Neck is supple. There is no elevated jugular venous pressure.] bruit is heard. HEART EXAMINATION: Heart S1 and S2 irregularly irregular a systolic murmur is heard. CHEST EXAMINATION: Lungs are clear with diminished air entry to bilateral bases. No chest wall tenderness is noted on palpation or with deep breathing. ABDOMEN: Soft, nontender. Bowel sounds are heard. No organomegaly noted. EXTREMITIES: 2+ peripheral pulses with no evidence of peripheral edema and no calf tenderness noted. NEUROLOGIC patient is awake, alert and oriented -3. . - Labs CBC & Chem 7: 12/13/17 06:05 12/13/17 06:05 Labs: Abnormal Lab Results - Last 24 Hours (Table) 12/12/17 12/12/17 12/12/17 Range/Units 11:54 16:34 20:28 RBC (4.30-5.90) m/uL Neutrophils # (1.3-7.7) k/uL Lymphocytes # (1.0-4.8) k/uL PT (9.0-12.0) sec INR (<1.2) Chloride (98-107) mmol/L Carbon Dioxide (22-30) mmol/L BUN (9-20) mg/dL Creatinine (0.66-1.25) mg/dL Glucose (74-99) mg/dL POC Glucose (mg/dL) 234 H 131 H 233 H (75-99) mg/dL 12/13/17 12/13/17 12/13/17 Range/Units 06:05 06:05 06:05 RBC 4.07 L (4.30-5.90) m/uL Neutrophils # 8.8 H (1.3-7.7) k/uL Lymphocytes # 0.5 L (1.0-4.8) k/uL PT 20.4 H (9.0-12.0) sec INR 2.3 H (<1.2) Chloride 88 L (98-107) mmol/L Carbon Dioxide 40 H* (22-30) mmol/L BUN 27 H (9-20) mg/dL Creatinine 0.61 L (0.66-1.25) mg/dL Glucose 138 H (74-99) mg/dL POC Glucose (mg/dL) (75-99) mg/dL 12/13/17 Range/Units 06:24 RBC (4.30-5.90) m/uL Neutrophils # (1.3-7.7) k/uL Lymphocytes # (1.0-4.8) k/uL PT (9.0-12.0) sec INR (<1.2) Chloride (98-107) mmol/L Carbon Dioxide (22-30) mmol/L BUN (9-20) mg/dL Creatinine (0.66-1.25) mg/dL Glucose (74-99) mg/dL POC Glucose (mg/dL) 131 H (75-99) mg/dL Microbiology - Last 24 Hours (Table) 12/12/17 13:55 Urine Culture - Preliminary Urine,Voided 12/11/17 16:40 Blood Culture - Preliminary Blood No Growth after 24 hours Assessment and Plan Plan: ASSESSMENT 1. Acute hypoxic, hypercapnic respiratory failure 2. Chronic persistent atrial fibrillation on custodial anticoagulation 3. Severe end stage COPD on home oxygen 4. Hypertension 5. History of ASD closure with amplatzer device 2014 6. Former nicotine dependence Plan Echocardiogram with Doppler study revealed a normal left ventricular systolic function with mild to moderate mitral regurg. From cardiology's perspective, we will follow this patient along with you now on an as-needed basis only, please don't hesitate to call with any questions. DNP note has been reviewed, I agree with a documented findings and plan of care. Patient was seen and examined.
[2017-12-13 11:44] LABS: Glucose,Whole Blood 169 mg/dL (75-99)
--- NOTE | 2017-12-13 14:53 | PN ---
PROGRESS NOTE DATE OF SERVICE: 12/13/2017 This is an 82-year-old gentleman who was admitted with shortness of breath and change in mental status, not acute hypoxic hypercarbic respiratory failure. Patient is on BiPAP. Patient is feeling slightly better. Sensorium is also improving. A stroke seems to be unlikely here at this time. Neurology is following the patient closely. Patient complains of weakness. No chest pain or palpitation. PAST MEDICAL HISTORY: Reviewed. REVIEW OF SYSTEMS: CARDIOVASCULAR: No angina. RESPIRATORY: As mentioned earlier. GI: No nausea. : No dysuria. CURRENT MEDICATIONS: Reviewed include: 1. DuoNeb q.i.d. and p.r.n. 2. Tenormin 50 mg q.h.s. 3. Zithromax 500 mg. p.o. daily. 4. Pulmicort 1 mg b.i.d. 5. Rocephin 1 mg b.i.d.. 6. Rocephin 1 g daily. 7. daily Vitamin B12 100 mcg. 8. Perforomist 20 mcg b.i.d. 9. Lasix 40 mg. 10.NovoLog scale. 11.Solu-Medrol 60 IV q.6. 12.Singular 10 mg daily. 13.Protonix 40 mg daily. 14.Coumadin 2.5 mg Sunday, Sunday, Sunday, , Sunday, Sunday and 5 mg on Sunday. PHYSICAL EXAM: Patient is alert, oriented x2. Pulse 81, blood pressure 120/50, respiration 24, temperature 97 degrees, pulse ox 94% on 4 L. HEENT: Conjunctivae normal. Oral mucosa moist. Neck is no jugular venous distention. No carotid bruit, no lymph node enlargement. CARDIOVASCULAR SYSTEMS: S1, S2. RESPIRATORY: Breath sounds diminished at the bases, bilateral scattered rhonchi. Chest emphysematous expiratory wheezing also present. ABDOMEN: Soft, nontender. No mass. LEGS: No edema, swelling. NERVOUS SYSTEM: Higher functions as mentioned earlier, moves all 4 limbs, mild diffuse weakness. LYMPHATICS: No lymph node enlargement in the neck or axillae. SKIN: No ulcer, rash or bleeding. LABS: WBC 10, hemoglobin 13.5, INR 2.3. Sodium 130, potassium 3.8. ASSESSMENT: 1. Status post BiPAP. 2. Shortness of breath, possibly chronic obstructive pulmonary disease acute exacerbation with acute hypoxic hypercapnic respiratory failure with acute purulent tracheobronchitis. 3. Change in mental status, possible acute metabolic encephalopathy secondary to hypercarbia. 4. Stroke unlikely. 5. Possible congestive heart failure with chronic diastolic dysfunction. 6. History of atrial fibrillation. 7. History of degenerative joint disease. 8. History of prostate disorder. 9. History of transient ischemic attack. 10.Remote history of nicotine dependence. RECOMMENDATION: Recommend to continue current management and symptomatic treatment. This 82-year-old gentleman had multiple medical issues and I would recommend to continue current medication, continue with IV steroids, which could be tapered. Follow closely with Pulmonary. Cardiology input appreciated. I would also recommend PT, OT evaluation for the possibility of possible ECF rehab because of the multiple complex medical issues at this time. Again discussed with family and as mentioned earlier, stroke seems to be unlikely at this point. However, will continue to monitor. The INR is 2.3 today. Further recommendations to follow. Discussed with the patient and family members and the daughter and the who understood and agree and further recommendations to follow. MMCEDL / MARSHAN: [id number] /
[2017-12-13 17:07] LABS: Glucose,Whole Blood 157 mg/dL (75-99)
--- NOTE | 2017-12-13 17:29 | EEG ---
ELECTROENCEPHALOGRAM REPORT DATE OF SERVICE: 12/13/2017. REASON FOR TESTING: Altered mental status. DESCRIPTION OF THE PROCEDURE: This EEG was performed using a 21 channel digital electroencephalograph, following international 10-20 system. DESCRIPTION OF THE RECORDING: From the beginning of the tracing, with patient's eyes closed, the background rhythm was mostly consisting of 6-7 Hz theta frequency in the posterior occipital leads. No obvious asymmetry is seen. Occasional movement and lead artifacts are seen. The patient does reach stage II of sleep during the tracing and occasional sleep spindles are seen. Photic stimulation was performed with a minimal driving response seen. No pathological waves were elicited. Hyperventilation was not performed. No epileptiform discharges were seen. His EKG lead showed an irregularly irregular rhythm with a normal rate. INTERPRETATION: This asleep and awake EEG is abnormal due to presence of generalized slowing of the background rhythm, mostly in the theta range. This is consistent with mild encephalopathy. No epileptiform discharges were seen. The absence of epileptiform discharges does not rule out the diagnosis of epilepsy, therefore clinical correlation is recommended. MMCEDL / IJGrace: [id number] /
[2017-12-13] MEDS: methylPREDNISolone SOD SUCCI 40 MG/ML 1 ML VIAL IV SCH ×2 (17:32→23:10)
[2017-12-13] MEDS: WARFARIN 2.5 MG TAB PO SCH (17:32)
[2017-12-13] MEDS: ATENOLOL 50 MG TAB PO SCH (20:26)
--- NOTE | 2017-12-13 20:37 | P.PN ---
Subjective Progress Note Date: 12/13/17 Principal diagnosis: altered mental status Neurology is following and an 82-year-old male for altered mental status. Patient was brought to [facility] with complaints of shortness of breath and confusion. Patient was minimally responsive and drowsy. Patient transferred to [facility] for further evaluation and management. On arrival, patient was placed on BiPAP 40% which improved his cognitive function. Patient had lower extremity edema concerning for congestive heart failure exacerbation. BNP was elevated. Patient was given diuretics and symptoms improved. At time of evaluation, patient is alert and oriented 3 intermittently more consistent with alert and oriented 2. According to family patient has been having significant intermittent, but progressive short-term memory loss over the past couple years. He has been worked up and treated for this in the past. CT of the brain was done on admission showed generalized atrophy and chronic small vessel ischemic changes. Carotid Doppler showed bilateral plaque but no hemodynamically significant stenosis. CBC, UA normal. INR therapeutic. Patient does have history of atrial fibrillation as well. CMP initially showed elevated bicarbonate and low chloride. UA was normal. On contact, the patient was in bed, resting in no acute distress, family at the bedside. He states that his fatigue has decreased significantly and his mental clarity has increased with the use of BiPAP. Patient does note that the BiPAP mask is uncomfortable and spouse reports that his mentation/cognitive functioning and clarity have improved significantly since his initial admission. She does note that he is still having difficulty with short-term memory but with regard to status prior to admission he is almost at baseline. Objective - Vital Signs Vital signs: Vital Signs Temp 97.9 F 12/13/17 16:00 Pulse 80 12/13/17 16:03 Resp 16 12/13/17 16:00 BP 118/56 12/13/17 16:00 Pulse Ox 96 12/13/17 16:00 Intake & Output 12/13/17 12/13/17 12/14/17 06:59 18:59 06:59 Intake Total 420 Output Total 600 1000 Balance -600 -580 Weight 85.2 kg Intake: Oral 420 Output: Urine 600 1000 Other: Voiding Method Urinal # Voids 1 - Exam General appearance: Alert & oriented x2-3, no apparent distress. Head: Atraumatic, normocephalic, normal inspection Eyes: Well appearance, PERRLA, EOMI. Ear, nose and throat: Normal exam, mucous membranes moist Neck: Normal inspection, absent tenderness, lymphadenopathy. Respiratory: No increased work of breathing Cardiovascular: Regular rate, rhythm GI/abdominal: no guarding, no rigidity. Extremities: full range of motion in all 4 extremities Neurological: cranial nerves II through XII intact no lateralizing weakness no seizure activity noted on physical exam no pronator drift and no nystagmus. strength in all 4 extremities equal at 4+ out of 5 Sensation: equal in all 4 extremities with regard to light touch Psychological: Mood and affect appropriate for setting. - Labs CBC & Chem 7: 12/13/17 06:05 12/13/17 06:05 Labs: Abnormal Lab Results - Last 24 Hours (Table) 12/12/17 12/13/17 12/13/17 Range/Units 20:28 06:05 06:05 RBC 4.07 L (4.30-5.90) m/uL Neutrophils # 8.8 H (1.3-7.7) k/uL Lymphocytes # 0.5 L (1.0-4.8) k/uL PT 20.4 H (9.0-12.0) sec INR 2.3 H (<1.2) Chloride (98-107) mmol/L Carbon Dioxide (22-30) mmol/L BUN (9-20) mg/dL Creatinine (0.66-1.25) mg/dL Glucose (74-99) mg/dL POC Glucose (mg/dL) 233 H (75-99) mg/dL 12/13/17 12/13/17 12/13/17 Range/Units 06:05 06:24 11:41 RBC (4.30-5.90) m/uL Neutrophils # (1.3-7.7) k/uL Lymphocytes # (1.0-4.8) k/uL PT (9.0-12.0) sec INR (<1.2) Chloride 88 L (98-107) mmol/L Carbon Dioxide 40 H* (22-30) mmol/L BUN 27 H (9-20) mg/dL Creatinine 0.61 L (0.66-1.25) mg/dL Glucose 138 H (74-99) mg/dL POC Glucose (mg/dL) 131 H 169 H (75-99) mg/dL 06/07/18 Range/Units 17:00 RBC (4.30-5.90) m/uL Neutrophils # (1.3-7.7) k/uL Lymphocytes # (1.0-4.8) k/uL PT (9.0-12.0) sec INR (<1.2) Chloride (98-107) mmol/L Carbon Dioxide (22-30) mmol/L BUN (9-20) mg/dL Creatinine (0.66-1.25) mg/dL Glucose (74-99) mg/dL POC Glucose (mg/dL) 157 H (75-99) mg/dL Microbiology - Last 24 Hours (Table) 12/11/17 16:40 Blood Culture - Preliminary Blood No Growth after 48 hours 12/12/17 13:55 Urine Culture - Preliminary Urine,Voided Assessment and Plan (1) Dementia Narrative/Plan: Patient does have known history of dementia, specifically short-term memory loss. Patient has had intermittent workup and follow-up with previous provider. Patient will need further workup outpatient and further management with medication to stabilize the patient's memory loss. Recommend further outpatient workup, cognitive testing and ongoing management in the outpatient setting. Follow up in our office in 10-14 days post discharge for further treatment. Recommended implementation/trial prior to discharge of Namenda 5 mg daily 7 days and increase to 5 mg twice a day until seen in the office. Current Visit: Yes Status: Acute Code(s): F03.90 - UNSPECIFIED DEMENTIA WITHOUT BEHAVIORAL DISTURBANCE SNOMED Code(s): 15983282 (2) Acute exacerbation of chronic obstructive airways disease Narrative/Plan: see below Current Visit: Yes Status: Acute Code(s): J44.1 - CHRONIC OBSTRUCTIVE PULMONARY DISEASE W (ACUTE) EXACERBATION SNOMED Code(s): 956803133 (3) Congestive heart failure Narrative/Plan: see below Current Visit: Yes Status: Acute Code(s): I50.9 - HEART FAILURE, UNSPECIFIED SNOMED Code(s): 80075584 (4) Hypoxia Narrative/Plan: Patient does appear to have experienced exacerbation of memory loss as well as acute injury due to hypoxia as a result of congestive heart failure. Patient has improved significantly since admission. Recommendations deferred to pulmonology with regard to ongoing management with BiPAP and outpatient recommendations for ongoing improved functioning. Current Visit: Yes Status: Acute Code(s): R09.02 - HYPOXEMIA SNOMED Code(s ): 512524717 Plan: Status: Patient can be cleared for discharge from neurological standpoint Patient to be advised to follow up in our office with a 10-14 business days for further workup and management. I have discussed the plan of care with the physician prior to implementation and he agrees with the plan as implemented.
[2017-12-13 21:19] LABS: Glucose,Whole Blood 172 mg/dL (75-99)
[2017-12-13 22:57] LABS: Glucose,Whole Blood 145 mg/dL (75-99)
[2017-12-14 06:00] LABS: Basophils % (A) 0 %; Eosinophils % (A) 0 %; HCT 39.7 % (39.0-53.0); HGB 13.1 gm/dL (13.0-17.5); Lymphocytes # (A) 0.4 k/uL (1.0-4.8); Lymphocytes % (A) 4 %; MCH 32.7 pg (25.0-35.0); MCHC 33.1 g/dL (31.0-37.0); MCV 98.9 fL (80.0-100.0); Mean Platelet Volume 8.4; Monocytes # (A) 0.6 k/uL (0-1.0); Monocytes % (A) 7 %; Neutrophils % (A) 87 %; Platelet Count 182 k/uL (150-450); RBC 4.02 m/uL (4.30-5.90); RDW 13.6 % (11.5-15.5); WBC 8.1 k/uL (3.8-10.6)
[2017-12-14 06:04] LABS: INR 2.1 (<1.2); Prothrombin Time 18.9 sec (9.0-12.0)
[2017-12-14 06:15] LABS: Blood Urea Nitrogen 30 mg/dL (9-20); Calcium 9.3 mg/dL (8.4-10.2); Chloride 85 mmol/L (98-107); Glucose 140 mg/dL (74-99); Potassium 4.8 mmol/L (3.5-5.1); Sodium 137 mmol/L (137-145)
[2017-12-14 06:24] LABS: Anion Gap 4 mmol/L
[2017-12-14 06:26] LABS: Glucose,Whole Blood 147 mg/dL (75-99)
[2017-12-14 06:28] LABS: Carbon Dioxide 48 mmol/L (22-30)
[2017-12-14] MEDS: PANTOPRAZOLE 40 MG TABLET PO SCH (06:56)
[2017-12-14] MEDS: INSULIN ASPART 100 UNIT/ML 1 ML 10 ML VIAL SQ SCH ×4 (06:56→21:33)
[2017-12-14] MEDS: BUDESONIDE 1 MG/2 ML NEBU INHALATION SCH ×2 (09:03→21:38)
[2017-12-14] MEDS: IPRATROPIUM-ALBUTEROL 3 ML NEB INHALATION SCH ×4 (09:04→21:38)
[2017-12-14] MEDS: FORMOTEROL FUMARATE 20 MCG/2 ML NEBU INHALATION SCH ×2 (09:04→21:38)
[2017-12-14] MEDS: methylPREDNISolone SOD SUCCI 40 MG/ML 1 ML VIAL IV SCH ×3 (09:16→23:19)
[2017-12-14] MEDS: CYANOCOBALAMIN 500 MCG TAB PO SCH ×2 (09:16→20:18)
[2017-12-14] MEDS: FUROSEMIDE 40 MG TAB PO SCH (09:16)
[2017-12-14] MEDS: MONTELUKAST 10 MG TAB PO SCH (09:16)
[2017-12-14] MEDS: AZITHROMYCIN 500 MG TAB PO SCH (09:16)
[2017-12-14] MEDS: cefTRIAXone IN SWFI 1,000 MG/10 ML SYRINGE IVP SCH (09:17)
[2017-12-14] MEDS: acetaZOLAMIDE 250 MG TAB PO SCH (09:57)
--- NOTE | 2017-12-14 10:22 | P.PN ---
Subjective Progress Note Date: 12/14/17 HPI: This is an 82-year-old gentleman who presented from an outside hospital with altered mental status and shortness of breath. History is taken from the family as the patient does not remember what happened to him. The patient states "my made me come." Per the patient's he had been short of breath for several days and tried to go to pulmonary rehab. The patient had hypoxemia as well as confusion. He was subsequently taken to [facility] and transferred to [facility]. The patient does follow with Dr. GUDELIA King in the office and saw him 3 weeks ago. He does have a history of COPD, CHF, atrial fibrillation. He uses duo nebs and Pulmicort at home. He also takes Singulair. He is complaining of wheezing. He denies cough. However his does note that he coughs up clear mucus but this has been ongoing for several years. He is a former smoker he used to smoke 2 packs per day for 50 years. He quit in 2006. He does wear oxygen at 2 L nasal cannula [id number]. 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 He is also complaining of right greater than left lower extremity swelling. The patient was placed on BiPAP overnight. He is currently off of BiPAP and is on 4 L nasal cannula. His mentation appears to be improving although he has no memory of the events from yesterday. Interval history: 12/13/2017- patient is being seen in evaluated on rounds today. He is resting up in bed on 4 L of supplemental oxygen. He utilizes 2 L of oxygen at home. His chest x-ray was reviewed from this morning and does show a right upper lobe infiltrate/atelectasis correlate for pneumonia. Bilateral lower extremity Dopplers from yesterday are negative. He continues on antibiotics and steroids. Continues to have shortness of breath with exertion and activity. Has had a cough that is nonproductive and sputum will be sent down to the lab. He is afebrile family is at bedside updated on plan of care no further complaints. 12/14/17- patient is being seen examined and evaluated today on rounds. He is resting up in bed on 4 L of supplemental oxygen via nasal cannula. The patient' s CO2 today is 48. He states he did utilizes BiPAP overnight. We will initiate Diamox 250 mg 2 doses. She does continue to have shortness of breath with exertion and activity. His EEG was read by neurology and shows generalized slowing of the background consistent with mild encephalopathy. Daughter is at bedside questions answered she has been updated on plan of care. Objective - Vital Signs Vital signs: Vital Signs Temp 97.5 F L 12/14/17 08:35 Pulse 92 12/14/17 09:30 Resp 20 12/14/17 08:35 BP 119/74 12/14/17 08:35 Pulse Ox 95 12/14/17 08:35 Intake & Output 12/13/17 12/14/17 12/14/17 18:59 06:59 18:59 Intake Total 420 180 Output Total 1000 700 950 Balance -580 -700 -770 Weight 86 kg Intake: Oral 420 180 Output: Urine 1000 700 950 Other: Voiding Method Urinal Urinal # Voids 2 - Exam Gen.: Patient is alert, pleasantly confused Cardiovascular: Irregular rate and rhythm, S1/S2 Lungs: Diffuse bilateral wheezing Abdomen: Soft nontender nondistended positive bowel sounds Extremities: Right greater than left lower extremity edema - Labs CBC & Chem 7: 12/14/17 05:24 12/14/17 05:24 Labs: Abnormal Lab Results - Last 24 Hours (Table) 12/13/17 12/13/17 12/13/17 Range/Units 11:41 17:00 21:00 RBC (4.30-5.90) m/uL Lymphocytes # (1.0-4.8) k/uL PT (9.0-12.0) sec INR (<1.2) Chloride (98-107) mmol/L Carbon Dioxide (22-30) mmol/L BUN (9-20) mg/dL Glucose (74-99) mg/dL POC Glucose (mg/dL) 169 H 157 H 172 H (75-99) mg/dL 12/13/17 12/14/17 12/14/17 Range/Units 22:54 05:24 05:24 RBC 4.02 L (4.30-5.90) m/uL Lymphocytes # 0.4 L (1.0-4.8) k/uL PT 18.9 H (9.0-12.0) sec INR 2.1 H (<1.2) Chloride (98-107) mmol/L Carbon Dioxide (22-30) mmol/L BUN (9-20) mg/dL Glucose (74-99) mg/dL POC Glucose (mg/dL) 145 H (75-99) mg/dL 12/14/17 12/14/17 Range/Units 05:24 06:25 RBC (4.30-5.90) m/uL Lymphocytes # (1.0-4.8) k/uL PT (9.0-12.0) sec INR (<1.2) Chloride 85 L (98-107) mmol/L Carbon Dioxide 48 H* (22-30) mmol/L BUN 30 H (9-20) mg/dL Glucose 140 H (74-99) mg/dL POC Glucose (mg/dL) 147 H (75-99) mg/dL Microbiology - Last 24 Hours (Table) 12/13/17 11:35 Gram Stain - Preliminary Sputum 12/12/17 13:55 Urine Culture - Final Urine,Voided 12/11/17 16:40 Blood Culture - Preliminary Blood No Growth after 48 hours Assessment and Plan Assessment: Assessment Acute on chronic hypoxic and hypercapnic respiratory failure Acute exacerbation of COPD Metabolic encephalopathy History of tobacco abuse Atrial fibrillation with controlled ventricular response 2/4 SIRS with elevated lactic acid, suspect sepsis, source unclear History of CHF, diastolic Possible CVA Environmental ALLERGIES History of ASD, s/p repair Coumadin coagulopathy History of CVA/TIA Lower extremity edema Obesity Hyperglycemia Plan Diamox 250 mg 2 doses O2 to maintain saturation greater than or equal to 90% Bipap nightly and PRN, encouraged to use during daytime naps Duo nebs and Pulmicort/Perforomist Singulair Lower extremity Doppler ultrasound Chest x-ray now Blood, urine, sputum cultures ABX: Azithromycin and Rocephin Solumedrol taper Coumadin dosing for INR 2-3 GI and DVT prophylaxis Incentive spirometry and pulmonary hygiene CT brain - neurology recommendations Cardiology recommendations Echocardiogram and carotid dopplers reviewed Patient did have a PSG in 2010 which showed no evidence of sleep disorder breathing Thank you for this consultation. We will continue to follow along. I performed an examination of the patient and discussed their management with the nurse practitioner. I have reviewed the nurse practitioner's note and agree with the documented findings and plan of care.
[2017-12-14 11:40] LABS: Glucose,Whole Blood 265 mg/dL (75-99)
--- NOTE | 2017-12-14 13:06 | PN ---
PROGRESS NOTE DATE OF SERVICE: 12/14/2017 This 82-year-old gentleman who was admitted with COPD acute exacerbation also was on BiPAP. The patient is feeling slightly better. The patient also complained of tiredness and weakness. No chest pain. No palpitations. No fever. PHYSICAL EXAMINATION: On exam, alert and oriented x3. Pulse 96, blood pressure 109/69, respiration 24, temperature 96.4, pulse ox 93% on 4 L. HEENT: Conjunctivae normal. Oral mucosa moist. Neck is no jugular venous distention. No carotid bruit. No lymph node enlargement. CARDIOVASCULAR: S1, S2 muffled. RESPIRATORY: Breath sounds diminished at the bases. A few scattered rhonchi and crackles. Chest emphysematous. ABDOMEN: Soft, nontender. NERVOUS SYSTEM: No focal deficits. LABS: Labs are at this time shows WBC 8.1, hemoglobin 13.1. CO2 is 48. Accu-Cheks noted. ASSESSMENT: 1. Shortness of breath, possible chronic obstructive pulmonary disease acute exacerbation with acute hypoxic hypercarbic respiratory failure with acute purulent tracheobronchitis, status post BiPAP. 2. Change in mental status, possible acute metabolic encephalopathy secondary to hypercarbia. 3. Stroke unlikely. 4. Gait dysfunction. 5. Congestive heart failure with chronic diastolic dysfunction. 6. History atrial fibrillation. 7. History of degenerative joint disease. 8. History of prostate disorder. 9. History of transient ischemic attack. 10.Remote history of nicotine dependence. RECOMMENDATIONS AND DISCUSSION: Continue current medication. Continue symptomatic treatment. Continue the bronchodilators. Otherwise, continue to taper the steroids and monitor PT, INR closely. PT, OT evaluation, possible ECF rehab. Discussed with family, understand and agrees. Further recommendations to follow. MMODL / IJN: [id number] /
[2017-12-14 16:34] LABS: Glucose,Whole Blood 127 mg/dL (75-99)
[2017-12-14] MEDS: WARFARIN 2.5 MG TAB PO SCH (17:38)
[2017-12-14] MEDS: ATENOLOL 50 MG TAB PO SCH (20:18)
[2017-12-14 21:14] LABS: Glucose,Whole Blood 196 mg/dL (75-99)
[2017-12-15 06:30] LABS: Basophils % (A) 0 %; Eosinophils % (A) 0 %; HCT 42.6 % (39.0-53.0); Lymphocytes # (A) 0.4 k/uL (1.0-4.8); Lymphocytes % (A) 5 %; MCH 32.5 pg (25.0-35.0); MCHC 32.9 g/dL (31.0-37.0); MCV 98.6 fL (80.0-100.0); Mean Platelet Volume 8.2; Monocytes # (A) 0.4 k/uL (0-1.0); Monocytes % (A) 6 %; Neutrophils # (A) 6.8 k/uL (1.3-7.7); Neutrophils % (A) 89 %; Platelet Count 168 k/uL (150-450); RBC 4.32 m/uL (4.30-5.90); RDW 13.6 % (11.5-15.5); WBC 7.6 k/uL (3.8-10.6)
[2017-12-15 06:36] LABS: INR 1.8 (<1.2); Prothrombin Time 16.2 sec (9.0-12.0)
[2017-12-15 06:42] LABS: Blood Urea Nitrogen 28 mg/dL (9-20); Calcium 9.4 mg/dL (8.4-10.2); Chloride 91 mmol/L (98-107); Glucose 134 mg/dL (74-99); Potassium 4.7 mmol/L (3.5-5.1); Sodium 138 mmol/L (137-145)
[2017-12-15 06:50] LABS: Anion Gap 6 mmol/L
[2017-12-15] MEDS: INSULIN ASPART 100 UNIT/ML 1 ML 10 ML VIAL SQ SCH ×4 (06:52→21:19)
[2017-12-15 06:54] LABS: Carbon Dioxide 41 mmol/L (22-30)
[2017-12-15 06:59] LABS: Glucose,Whole Blood 120 mg/dL (75-99)
[2017-12-15] MEDS: PANTOPRAZOLE 40 MG TABLET PO SCH (07:00)
[2017-12-15] MEDS: FORMOTEROL FUMARATE 20 MCG/2 ML NEBU INHALATION SCH ×2 (08:14→20:57)
[2017-12-15] MEDS: IPRATROPIUM-ALBUTEROL 3 ML NEB INHALATION SCH ×4 (08:14→20:57)
[2017-12-15] MEDS: BUDESONIDE 1 MG/2 ML NEBU INHALATION SCH ×2 (08:14→20:57)
[2017-12-15] MEDS: methylPREDNISolone SOD SUCCI 40 MG/ML 1 ML VIAL IV SCH (09:01)
[2017-12-15] MEDS: cefTRIAXone IN SWFI 1,000 MG/10 ML SYRINGE IVP SCH (09:01)
[2017-12-15] MEDS: acetaZOLAMIDE 250 MG TAB PO SCH (09:02)
[2017-12-15] MEDS: CYANOCOBALAMIN 500 MCG TAB PO SCH ×2 (09:02→20:19)
[2017-12-15] MEDS: MULTIVITAMINS, THERA 1 EACH TAB PO SCH (09:02)
[2017-12-15] MEDS: FUROSEMIDE 40 MG TAB PO SCH (09:02)
[2017-12-15] MEDS: THIAMINE 100 MG TAB PO SCH (09:02)
[2017-12-15] MEDS: FOLIC ACID 1 MG TAB PO SCH (09:02)
[2017-12-15] MEDS: AZITHROMYCIN 500 MG TAB PO SCH (09:02)
[2017-12-15] MEDS: MONTELUKAST 10 MG TAB PO SCH (09:02)
--- NOTE | 2017-12-15 09:44 | P.PN ---
<Marce Humphreys E - Last Filed: 12/15/17 09:40> Subjective Progress Note Date: 12/15/17 HPI: This is an 82-year-old gentleman who presented from an outside hospital with altered mental status and shortness of breath. History is taken from the family as the patient does not remember what happened to him. The patient states "my made me come." Per the patient's he had been short of breath for several days and tried to go to pulmonary rehab. The patient had hypoxemia as well as confusion. He was subsequently taken to [facility] and transferred to [facility]. The patient does follow with Dr. GUDELIA King in the office and saw him 3 weeks ago. He does have a history of COPD, CHF, atrial fibrillation. He uses duo nebs and Pulmicort at home. He also takes Singulair. He is complaining of wheezing. He denies cough. However his does note that he coughs up clear mucus but this has been ongoing for several years. He is a former smoker he used to smoke 2 packs per day for 50 years. He quit in 2006. He does wear oxygen at 2 L nasal cannula [id number]. 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 He is also complaining of right greater than left lower extremity swelling. The patient was placed on BiPAP overnight. He is currently off of BiPAP and is on 4 L nasal cannula. His mentation appears to be improving although he has no memory of the events from yesterday. Interval history: 12/13/2017- patient is being seen in evaluated on rounds today. He is resting up in bed on 4 L of supplemental oxygen. He utilizes 2 L of oxygen at home. His chest x-ray was reviewed from this morning and does show a right upper lobe infiltrate/atelectasis correlate for pneumonia. Bilateral lower extremity Dopplers from yesterday are negative. He continues on antibiotics and steroids. Continues to have shortness of breath with exertion and activity. Has had a cough that is nonproductive and sputum will be sent down to the lab. He is afebrile family is at bedside updated on plan of care no further complaints. 12/14/17- patient is being seen examined and evaluated today on rounds. He is resting up in bed on 4 L of supplemental oxygen via nasal cannula. The patient' s CO2 today is 48. He states he did utilizes BiPAP overnight. We will initiate Diamox 250 mg 2 doses. She does continue to have shortness of breath with exertion and activity. His EEG was read by neurology and shows generalized slowing of the background consistent with mild encephalopathy. Daughter is at bedside questions answered she has been updated on plan of care. 12/15/17- patient being seen examined and evaluated today on rounds. He continues on 4 L of supplemental oxygen. Continues to use BiPAP at night and with naps. He feels his breathing is relatively the same today. Short of breath with exertion and activity. CO2 has come down to 41 today, his second dose of Diamox given this morning. He is afebrile no further complaints. Family is at bedside updated on plan of care. Objective - Vital Signs Vital signs: Vital Signs Temp 97.7 F 12/15/17 09:05 Pulse 85 12/15/17 09:05 Resp 24 12/15/17 09:05 BP 106/56 12/15/17 09:05 Pulse Ox 95 12/15/17 09:05 Intake & Output 12/14/17 12/15/17 12/15/17 18:59 06:59 18:59 Intake Total 840 10 Output Total 1250 Balance -410 10 Weight 82.3 kg Intake: IV 10 flush 10 Oral 840 Output: Urine 1250 Other: Voiding Method Urinal Urinal Urinal # Voids 1 1 2 - Exam Gen.: Patient is alert, pleasantly confused Cardiovascular: Irregular rate and rhythm, S1/S2 Lungs: Diffuse bilateral wheezing Abdomen: Soft nontender nondistended positive bowel sounds Extremities: Right greater than left lower extremity edema - Labs CBC & Chem 7: 12/15/17 06:07 12/15/17 06:07 Labs: Abnormal Lab Results - Last 24 Hours (Table) 12/14/17 12/14/17 12/14/17 Range/Units 11:38 16:33 21:10 Lymphocytes # (1.0-4.8) k/uL PT (9.0-12.0) sec INR (<1.2) Chloride (98-107) mmol/L Carbon Dioxide (22-30) mmol/L BUN (9-20) mg/dL Glucose (74-99) mg/dL POC Glucose (mg/dL) 265 H 127 H 196 H (75-99) mg/dL 12/15/17 12/15/17 12/15/17 Range/Units 06:07 06:07 06:07 Lymphocytes # 0.4 L (1.0-4.8) k/uL PT 16.2 H (9.0-12.0) sec INR 1.8 H (<1.2) Chloride 91 L (98-107) mmol/L Carbon Dioxide 41 H* (22-30) mmol/L BUN 28 H (9-20) mg/dL Glucose 134 H (74-99) mg/dL POC Glucose (mg/dL) (75-99) mg/dL 12/15/17 Range/Units 06:44 Lymphocytes # (1.0-4.8) k/uL PT (9.0-12.0) sec INR (<1.2) Chloride (98-107) mmol/L Carbon Dioxide (22-30) mmol/L BUN (9-20) mg/dL Glucose (74-99) mg/dL POC Glucose (mg/dL) 120 H (75-99) mg/dL Microbiology - Last 24 Hours (Table) 12/11/17 16:40 Blood Culture - Preliminary Blood No Growth after 72 hours 12/13/17 11:35 Gram Stain - Preliminary Sputum Sputum Culture - Preliminary Assessment and Plan Assessment: Assessment Acute on chronic hypoxic and hypercapnic respiratory failure Acute exacerbation of COPD Pneumonia Metabolic encephalopathy History of tobacco abuse Atrial fibrillation with controlled ventricular response 2/4 SIRS with elevated lactic acid, suspect sepsis, source unclear History of CHF, diastolic Possible CVA Environmental ALLERGIES History of ASD, s/p repair Coumadin coagulopathy History of CVA/TIA Lower extremity edema Obesity Hyperglycemia Plan Diamox 250 mg 2 doses O2 to maintain saturation greater than or equal to 90% Bipap nightly and PRN, encouraged to use during daytime naps Duo nebs and Pulmicort/Perforomist Singulair Lower extremity Doppler ultrasound Chest x-ray now Blood, urine, sputum cultures ABX: Azithromycin and Rocephin Solumedrol taper Coumadin dosing for INR 2-3 GI and DVT prophylaxis Incentive spirometry and pulmonary hygiene CT brain - neurology recommendations Cardiology recommendations Echocardiogram and carotid dopplers reviewed Patient did have a PSG in 2010 which showed no evidence of sleep disorder breathing Thank you for this consultation. We will continue to follow along. I performed an examination of the patient and discussed their management with the nurse practitioner. I have reviewed the nurse practitioner's note and agree with the documented findings and plan of care. <Laura Winters A - Last Filed: 12/15/17 10:17> Objective - Vital Signs Vital signs: Vital Signs Temp 97.7 F 12/15/17 09:05 Pulse 85 12/15/17 09:05 Resp 24 12/15/17 09:05 BP 106/56 12/15/17 09:05 Pulse Ox 95 12/15/17 09:05 Intake & Output 12/14/17 12/15/17 12/15/17 18:59 06:59 18:59 Intake Total 840 10 Output Total 1250 Balance -410 10 Weight 82.3 kg Intake: IV 10 flush 10 Oral 840 Output: Urine 1250 Other: Voiding Method Urinal Urinal Urinal # Voids 1 1 2 - Labs CBC & Chem 7: 12/15/17 06:07 12/15/17 06:07 Labs: Abnormal Lab Results - Last 24 Hours (Table) 12/14/17 12/14/17 12/14/17 Range/Units 11:38 16:33 21:10 Lymphocytes # (1.0-4.8) k/uL PT (9.0-12.0) sec INR (<1.2) Chloride (98-107) mmol/L Carbon Dioxide (22-30) mmol/L BUN (9-20) mg/dL Glucose (74-99) mg/dL POC Glucose (mg/dL) 265 H 127 H 196 H (75-99) mg/dL 12/15/17 12/15/17 12/15/17 Range/Units 06:07 06:07 06:07 Lymphocytes # 0.4 L (1.0-4.8) k/uL PT 16.2 H (9.0-12.0) sec INR 1.8 H (<1.2) Chloride 91 L (98-107) mmol/L Carbon Dioxide 41 H* (22-30) mmol/L BUN 28 H (9-20) mg/dL Glucose 134 H (74-99) mg/dL POC Glucose (mg/dL) (75-99) mg/dL 12/15/17 Range/Units 06:44 Lymphocytes # (1.0-4.8) k/uL PT (9.0-12.0) sec INR (<1.2) Chloride (98-107) mmol/L Carbon Dioxide (22-30) mmol/L BUN (9-20) mg/dL Glucose (74-99) mg/dL POC Glucose (mg/dL) 120 H (75-99) mg/dL Microbiology - Last 24 Hours (Table) 12/13/17 11:35 Gram Stain - Final Sputum Sputum Culture - Final 12/11/17 16:40 Blood Culture - Preliminary Blood No Growth after 72 hours Assessment and Plan Assessment: Patient seen and examined. Ok to DC from pulmonary standpoint to rehab. Steroid taper. Continue bipap nightly and PRN. Will try to arrange for home bipap outpatient. ~Laura Winters DO
[2017-12-15] MEDS: predniSONE 20 MG TAB PO SCH (11:36)
[2017-12-15 11:49] LABS: Glucose,Whole Blood 109 mg/dL (75-99)
[2017-12-15 16:44] LABS: Glucose,Whole Blood 187 mg/dL (75-99)
--- NOTE | 2017-12-15 17:10 | PN ---
PROGRESS NOTE DATE OF SERVICE: 12/15/2017 This 82-year-old gentleman who was admitted with COPD acute exacerbation and acute respiratory failure also had features of right upper lobe pneumonia. The patient is on IV antibiotics. Pulmonary is following the patient. Steroids have been tapered. No chest pain or palpitations. Patient also BiPAP during nighttime. Patient is still hypercarbic. PHYSICAL EXAMINATION: On exam, alert and oriented x3. Pulse 75, blood pressure 101/60, respiration 18 , temperature 97.7, pulse ox 94% on 2 L. HEENT: Conjunctivae normal. Oral mucosa moist. Neck is no jugular venous distention. No carotid bruit. No lymph node enlargement. CARDIOVASCULAR: S1, S2 muffled. RESPIRATORY: Breath sounds diminished at the bases. A few rhonchi, no crackles. ABDOMEN: Soft, nontender. LEGS: No edema, no swelling. NERVOUS SYSTEM: No focal deficits. LABS: CBC within normal limits. INR 1.8. Glucose noted. ASSESSMENT: 1. Shortness of breath, possible chronic obstructive pulmonary disease acute exacerbation with acute hypoxic hypercarbic respiratory failure with failure of outpatient treatment as well as possible right upper lobe pneumonia possibly gram- negative. 2. Status post BiPAP. 3. Change in mental status, possible acute metabolic encephalopathy secondary to hypercarbia. 4. Stroke unlikely. 5. Gait dysfunction. 6. Congestive heart failure with chronic diastolic dysfunction. 7. History of atrial fibrillation. 8. History of degenerative joint disease. 9. History of prostate disorder. 10.History of transient ischemic attack. 11.Remote history of nicotine dependence. RECOMMENDATION AND DISCUSSION: Recommend to continue current medication, continue with monitoring symptomatic treatment. Otherwise at this time I would recommend to continue the bronchodilators, antibiotics and steroids. PT, OT evaluation, possible ECF rehab. Guarded prognosis. Further recommendations to follow. MMODL / IJN: [id number] / MTDD
[2017-12-15] MEDS: WARFARIN 2.5 MG TAB PO SCH (17:14)
[2017-12-15] MEDS: ATENOLOL 50 MG TAB PO SCH (20:19)
[2017-12-15 20:47] LABS: Glucose,Whole Blood 117 mg/dL (75-99)
[2017-12-16 06:32] LABS: Glucose,Whole Blood 97 mg/dL (75-99)
[2017-12-16] MEDS: INSULIN ASPART 100 UNIT/ML 1 ML 10 ML VIAL SQ SCH ×4 (06:39→21:07)
[2017-12-16 06:43] LABS: Basophils % (A) 0 %; Eosinophils % (A) 0 %; HCT 43.1 % (39.0-53.0); HGB 14.2 gm/dL (13.0-17.5); Lymphocytes # (A) 0.9 k/uL (1.0-4.8); Lymphocytes % (A) 12 %; MCH 32.9 pg (25.0-35.0); MCV 99.7 fL (80.0-100.0); Mean Platelet Volume 7.6; Monocytes # (A) 0.8 k/uL (0-1.0); Monocytes % (A) 11 %; Neutrophils # (A) 5.7 k/uL (1.3-7.7); Neutrophils % (A) 75 %; Platelet Count 193 k/uL (150-450); RBC 4.33 m/uL (4.30-5.90); RDW 14.2 % (11.5-15.5); WBC 7.7 k/uL (3.8-10.6)
[2017-12-16 06:44] LABS: INR 1.9 (<1.2); Prothrombin Time 17.1 sec (9.0-12.0)
[2017-12-16 06:50] LABS: Anion Gap 6 mmol/L; Blood Urea Nitrogen 29 mg/dL (9-20); Calcium 9.3 mg/dL (8.4-10.2); Carbon Dioxide 39 mmol/L (22-30); Chloride 92 mmol/L (98-107); Glucose 87 mg/dL (74-99); Potassium 4.5 mmol/L (3.5-5.1); Sodium 137 mmol/L (137-145)
[2017-12-16] MEDS: PANTOPRAZOLE 40 MG TABLET PO SCH (07:01)
[2017-12-16] MEDS: BUDESONIDE 1 MG/2 ML NEBU INHALATION SCH ×2 (08:14→20:10)
[2017-12-16] MEDS: FORMOTEROL FUMARATE 20 MCG/2 ML NEBU INHALATION SCH ×2 (08:14→20:10)
[2017-12-16] MEDS: IPRATROPIUM-ALBUTEROL 3 ML NEB INHALATION SCH ×4 (08:14→20:10)
[2017-12-16] MEDS: predniSONE 20 MG TAB PO SCH (09:13)
[2017-12-16] MEDS: AZITHROMYCIN 500 MG TAB PO SCH (09:14)
[2017-12-16] MEDS: MONTELUKAST 10 MG TAB PO SCH (09:14)
[2017-12-16] MEDS: CYANOCOBALAMIN 500 MCG TAB PO SCH ×2 (09:14→20:45)
[2017-12-16] MEDS: MULTIVITAMINS, THERA 1 EACH TAB PO SCH (09:14)
[2017-12-16] MEDS: THIAMINE 100 MG TAB PO SCH (09:14)
[2017-12-16] MEDS: FUROSEMIDE 40 MG TAB PO SCH (09:14)
[2017-12-16] MEDS: FOLIC ACID 1 MG TAB PO SCH (09:14)
[2017-12-16] MEDS: cefTRIAXone IN SWFI 1,000 MG/10 ML SYRINGE IVP SCH (09:16)
[2017-12-16 11:43] LABS: Glucose,Whole Blood 98 mg/dL (75-99)
--- NOTE | 2017-12-16 12:11 | P.PN ---
Subjective Progress Note Date: 12/16/17 Principal diagnosis: Acute exacerbation of COPD HPI: This is an 82-year-old gentleman who presented from an outside hospital with altered mental status and shortness of breath. History is taken from the family as the patient does not remember what happened to him. The patient states "my made me come." Per the patient's he had been short of breath for several days and tried to go to pulmonary rehab. The patient had hypoxemia as well as confusion. He was subsequently taken to [facility] and transferred to [facility]. The patient does follow with Dr. GUDELIA King in the office and saw him 3 weeks ago. He does have a history of COPD, CHF, atrial fibrillation. He uses duo nebs and Pulmicort at home. He also takes Singulair. He is complaining of wheezing. He denies cough. However his does note that he coughs up clear mucus but this has been ongoing for several years. He is a former smoker he used to smoke 2 packs per day for 50 years. He quit in 2006. He does wear oxygen at 2 L nasal cannula [id number]. 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 He is also complaining of right greater than left lower extremity swelling. The patient was placed on BiPAP overnight. He is currently off of BiPAP and is on 4 L nasal cannula. His mentation appears to be improving although he has no memory of the events from yesterday. Interval history: 12/13/2017- patient is being seen in evaluated on rounds today. He is resting up in bed on 4 L of supplemental oxygen. He utilizes 2 L of oxygen at home. His chest x-ray was reviewed from this morning and does show a right upper lobe infiltrate/atelectasis correlate for pneumonia. Bilateral lower extremity Dopplers from yesterday are negative. He continues on antibiotics and steroids. Continues to have shortness of breath with exertion and activity. Has had a cough that is nonproductive and sputum will be sent down to the lab. He is afebrile family is at bedside updated on plan of care no further complaints. 12/14/17- patient is being seen examined and evaluated today on rounds. He is resting up in bed on 4 L of supplemental oxygen via nasal cannula. The patient' s CO2 today is 48. He states he did utilizes BiPAP overnight. We will initiate Diamox 250 mg 2 doses. She does continue to have shortness of breath with exertion and activity. His EEG was read by neurology and shows generalized slowing of the background consistent with mild encephalopathy. Daughter is at bedside questions answered she has been updated on plan of care. 12/15/17- patient being seen examined and evaluated today on rounds. He continues on 4 L of supplemental oxygen. Continues to use BiPAP at night and with naps. He feels his breathing is relatively the same today. Short of breath with exertion and activity. CO2 has come down to 41 today, his second dose of Diamox given this morning. He is afebrile no further complaints. Family is at bedside updated on plan of care. 12/16/2017: Patient seen and examined. His is at bedside. The patient is on 4 L nasal cannula. He continues to use BiPAP nightly and as needed. The patient states his breathing is near baseline but he does still get short of breath with exertion. Plan is for discharge to rehab in the next 24-48 hours. Objective - Vital Signs Vital signs: Vital Signs Temp 96.9 F L 12/16/17 08:00 Pulse 88 12/16/17 11:49 Resp 18 12/16/17 08:00 BP 107/73 12/16/17 08:00 Pulse Ox 92 L 12/16/17 08:16 Intake & Output 12/15/17 12/16/17 12/16/17 18:59 06:59 18:59 Intake Total 480 370 Balance 480 370 Intake: IV 10 flush 10 Oral 480 360 Other: Voiding Method Urinal Urinal Urinal # Voids 2 2 - Exam Gen.: Patient is alert, pleasantly confused Cardiovascular: Irregular rate and rhythm, S1/S2 Lungs: Diminished breath sounds bilaterally with scattered end expiratory wheezing Abdomen: Soft nontender nondistended positive bowel sounds Extremities: Right greater than left lower extremity edema - Labs CBC & Chem 7: 12/16/17 06:03 12/16/17 06:03 Labs: Abnormal Lab Results - Last 24 Hours (Table) 12/15/17 12/15/17 12/16/17 Range/Units 16:39 20:45 06:03 Lymphocytes # 0.9 L (1.0-4.8) k/uL PT (9.0-12.0) sec INR (<1.2) Chloride (98-107) mmol/L Carbon Dioxide (22-30) mmol/L BUN (9-20) mg/dL POC Glucose (mg/dL) 187 H 117 H (75-99) mg/dL 12/16/17 12/16/17 Range/Units 06:03 06:03 Lymphocytes # (1.0-4.8) k/uL PT 17.1 H (9.0-12.0) sec INR 1.9 H (<1.2) Chloride 92 L (98-107) mmol/L Carbon Dioxide 39 H (22-30) mmol/L BUN 29 H (9-20) mg/dL POC Glucose (mg/dL) (75-99) mg/dL Microbiology - Last 24 Hours (Table) 12/11/17 16:40 Blood Culture - Preliminary Blood No Growth after 96 hours 12/13/17 11:35 Gram Stain - Final Sputum Sputum Culture - Final Assessment and Plan Assessment: Acute on chronic hypoxic and hypercapnic respiratory failure Acute exacerbation of COPD Community acquired Pneumonia Metabolic encephalopathy, resolved History of tobacco abuse Atrial fibrillation with controlled ventricular response 2/4 SIRS with elevated lactic acid, sepsis History of CHF, diastolic Possible CVA Environmental ALLERGIES History of ASD, s/p repair Coumadin coagulopathy History of CVA/TIA Lower extremity edema Obesity Hyperglycemia Plan O2 to maintain saturation greater than or equal to 90% Bipap nightly and PRN, encouraged to use during daytime naps Duo nebs and Pulmicort/Perforomist Singulair Blood, urine, sputum cultures negative to date ABX: Azithromycin Prednisone taper Coumadin dosing for INR 2-3 GI and DVT prophylaxis Incentive spirometry and pulmonary hygiene Patient did have a PSG in 2010 which showed no evidence of sleep disorder breathing Ok to DC to rehab from pulmonary standpoint
--- NOTE | 2017-12-16 15:32 | PN ---
PROGRESS NOTE DATE OF SERVICE: 12/16/2017 This 82-year-old gentleman who was admitted with COPD acute exacerbation also had acute hypoxic hypercarbic respiratory failure. The patient has been closely monitored. Patient using BiPAP at nighttime. Patient also evaluated for a ECF rehab. No chest pain. No palpitations. Patient is on p.o. steroids. PHYSICAL EXAM: Alert and oriented x2. Pulse 82, blood pressure 106/65, respiration 18, temperature 97.1, pulse ox 98% on 2 L. HEENT: Conjunctivae normal. Oral mucosa moist. Neck is no jugular venous distention. No carotid bruit. No lymph node enlargement. CARDIOVASCULAR: S1, S2. RESPIRATORY: Breath sounds diminished in the bases. A few scattered rhonchi and crackles. Chest emphysematous. ABDOMEN: Soft, nontender. NERVOUS SYSTEM: No focal deficits. LABS: CBC within normal. INR 1.9. Sodium 137, potassium 4.5. ASSESSMENT: 1. Shortness of breath with possible chronic obstructive pulmonary disease acute exacerbation with acute hypoxic hypercarbic respiratory failure with failure for outpatient treatment as well as possible right upper lobe pneumonia possibly gram- negative, status post BiPAP. 2. Change in mental status, possible acute metabolic encephalopathy secondary to hypercarbia. 3. Stroke unlikely. 4. Gait dysfunction. 5. Congestive heart failure with chronic diastolic dysfunction. 6. History atrial fibrillation. 7. History of degenerative joint disease. 8. History of prostate disorder. 9. History of transient ischemic attack. 10.Remote history of nicotine dependence. RECOMMENDATION AND DISCUSSION: I recommend to continue current medications, continue to monitor. Symptomatic treatment. Otherwise at this time I recommend continue with bronchodilators. Continue with antibiotics. PT, OT evaluation, possible ECF rehab. Guarded prognosis. Further recommendations to follow. MMODL / IJN: [id number] /
[2017-12-16 17:21] LABS: Glucose,Whole Blood 155 mg/dL (75-99)
[2017-12-16] MEDS ORDERED: WARFARIN 5 MG TAB PO SCH (18:00)
[2017-12-16] MEDS: ATENOLOL 50 MG TAB PO SCH (20:45)
[2017-12-16 21:02] LABS: Glucose,Whole Blood 126 mg/dL (75-99)
[2017-12-17 06:05] LABS: Glucose,Whole Blood 89 mg/dL (75-99)
[2017-12-17] MEDS: INSULIN ASPART 100 UNIT/ML 1 ML 10 ML VIAL SQ SCH ×2 (06:09→11:43)
[2017-12-17] MEDS: PANTOPRAZOLE 40 MG TABLET PO SCH (06:15)
[2017-12-17 06:49] LABS: HGB 14.2 gm/dL (13.0-17.5); MCH 33.1 pg (25.0-35.0); MCHC 33.9 g/dL (31.0-37.0); MCV 97.6 fL (80.0-100.0); Mean Platelet Volume 8.1; Platelet Count 182 k/uL (150-450); RBC 4.31 m/uL (4.30-5.90); RDW 13.6 % (11.5-15.5); WBC 7.3 k/uL (3.8-10.6)
[2017-12-17 06:59] LABS: Blood Urea Nitrogen 27 mg/dL (9-20); Calcium 8.9 mg/dL (8.4-10.2); Chloride 89 mmol/L (98-107); Glucose 81 mg/dL (74-99); Potassium 4.3 mmol/L (3.5-5.1); Sodium 139 mmol/L (137-145)
[2017-12-17 07:05] LABS: Anion Gap 8 mmol/L
[2017-12-17 07:14] LABS: Carbon Dioxide 42 mmol/L (22-30)
[2017-12-17] MEDS: IPRATROPIUM-ALBUTEROL 3 ML NEB INHALATION SCH ×2 (07:40→11:04)
[2017-12-17] MEDS: BUDESONIDE 1 MG/2 ML NEBU INHALATION SCH (07:40)
[2017-12-17] MEDS: FORMOTEROL FUMARATE 20 MCG/2 ML NEBU INHALATION SCH (07:40)
[2017-12-17] MEDS ORDERED: acetaZOLAMIDE 250 MG TAB PO ONE (09:30)
[2017-12-17] MEDS: CYANOCOBALAMIN 500 MCG TAB PO SCH (09:36)
[2017-12-17] MEDS: predniSONE 20 MG TAB PO SCH (09:36)
[2017-12-17] MEDS: AZITHROMYCIN 500 MG TAB PO SCH (09:37)
[2017-12-17] MEDS: MONTELUKAST 10 MG TAB PO SCH (09:37)
[2017-12-17] MEDS: FOLIC ACID 1 MG TAB PO SCH (09:37)
[2017-12-17] MEDS: MULTIVITAMINS, THERA 1 EACH TAB PO SCH (09:37)
[2017-12-17] MEDS: FUROSEMIDE 40 MG TAB PO SCH (09:37)
[2017-12-17] MEDS: THIAMINE 100 MG TAB PO SCH (09:38)
--- NOTE | 2017-12-17 09:55 | P.PN ---
Subjective Progress Note Date: 12/17/17 HPI: This is an 82-year-old gentleman who presented from an outside hospital with altered mental status and shortness of breath. History is taken from the family as the patient does not remember what happened to him. The patient states "my made me come." Per the patient's he had been short of breath for several days and tried to go to pulmonary rehab. The patient had hypoxemia as well as confusion. He was subsequently taken to [facility] and transferred to [facility]. The patient does follow with Dr. GUDELIA King in the office and saw him 3 weeks ago. He does have a history of COPD, CHF, atrial fibrillation. He uses duo nebs and Pulmicort at home. He also takes Singulair. He is complaining of wheezing. He denies cough. However his does note that he coughs up clear mucus but this has been ongoing for several years. He is a former smoker he used to smoke 2 packs per day for 50 years. He quit in 2006. He does wear oxygen at 2 L nasal cannula [id number]. 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 He is also complaining of right greater than left lower extremity swelling. The patient was placed on BiPAP overnight. He is currently off of BiPAP and is on 4 L nasal cannula. His mentation appears to be improving although he has no memory of the events from yesterday. Interval history: 12/13/2017- patient is being seen in evaluated on rounds today. He is resting up in bed on 4 L of supplemental oxygen. He utilizes 2 L of oxygen at home. His chest x-ray was reviewed from this morning and does show a right upper lobe infiltrate/atelectasis correlate for pneumonia. Bilateral lower extremity Dopplers from yesterday are negative. He continues on antibiotics and steroids. Continues to have shortness of breath with exertion and activity. Has had a cough that is nonproductive and sputum will be sent down to the lab. He is afebrile family is at bedside updated on plan of care no further complaints. 12/14/17- patient is being seen examined and evaluated today on rounds. He is resting up in bed on 4 L of supplemental oxygen via nasal cannula. The patient' s CO2 today is 48. He states he did utilizes BiPAP overnight. We will initiate Diamox 250 mg 2 doses. She does continue to have shortness of breath with exertion and activity. His EEG was read by neurology and shows generalized slowing of the background consistent with mild encephalopathy. Daughter is at bedside questions answered she has been updated on plan of care. 12/15/17- patient being seen examined and evaluated today on rounds. He continues on 4 L of supplemental oxygen. Continues to use BiPAP at night and with naps. He feels his breathing is relatively the same today. Short of breath with exertion and activity. CO2 has come down to 41 today, his second dose of Diamox given this morning. He is afebrile no further complaints. Family is at bedside updated on plan of care. 12/16/2017: Patient seen and examined. His is at bedside. The patient is on 4 L nasal cannula. He continues to use BiPAP nightly and as needed. The patient states his breathing is near baseline but he does still get short of breath with exertion. Plan is for discharge to rehab in the next 24-48 hours. 12/17/17- patient is being seen examined and evaluated on rounds. He is resting up in bed on 2 L of supplemental oxygen via nasal cannula. Feels his breathing is improving. He did have a CO2 of 42 this morning, CO2 levels have consistently remained around 40. Will receive home one-time dose of Diamox. Discharge planning in place. Afebrile no further complaints. Objective - Vital Signs Vital signs: Vital Signs Temp 98.2 F 12/16/17 20:00 Pulse 77 12/17/17 08:01 Resp 22 12/17/17 04:00 BP 107/64 12/17/17 04:00 Pulse Ox 97 12/17/17 04:00 Intake & Output 12/16/17 12/17/17 12/17/17 18:59 06:59 18:59 Intake Total 640 360 240 Output Total 1200 Balance -560 360 240 Weight 79.9 kg Intake: Oral 640 360 240 Output: Urine 1200 Other: Voiding Method Urinal Urinal # Voids 1 - Exam Gen.: Patient is alert, pleasantly confused Cardiovascular: Irregular rate and rhythm, S1/S2 Lungs: Diffuse bilateral wheezing Abdomen: Soft nontender nondistended positive bowel sounds Extremities: Right greater than left lower extremity edema - Labs CBC & Chem 7: 12/17/17 05:38 12/17/17 05:38 Labs: Abnormal Lab Results - Last 24 Hours (Table) 12/16/17 12/16/17 12/17/17 Range/Units 17:07 21:01 05:38 Chloride 89 L (98-107) mmol/L Carbon Dioxide 42 H* (22-30) mmol/L BUN 27 H (9-20) mg/dL POC Glucose (mg/dL) 155 H 126 H (75-99) mg/dL Microbiology - Last 24 Hours (Table) 12/11/17 16:40 Blood Culture - Preliminary Blood No Growth after 120 hours Assessment and Plan Assessment: Assessment Acute on chronic hypoxic and hypercapnic respiratory failure Acute exacerbation of COPD Pneumonia Metabolic encephalopathy History of tobacco abuse Atrial fibrillation with controlled ventricular response 2/4 SIRS with elevated lactic acid, suspect sepsis, source unclear History of CHF, diastolic Possible CVA Environmental ALLERGIES History of ASD, s/p repair Coumadin coagulopathy History of CVA/TIA Lower extremity edema Obesity Hyperglycemia Plan Patient is cleared for discharge from a pulmonary standpoint Diamox 250 mg 1 doses O2 to maintain saturation greater than or equal to 90% Bipap nightly and PRN, encouraged to use during daytime naps Duo nebs and Pulmicort/Perforomist Singulair Lower extremity Doppler ultrasound Chest x-ray now Blood, urine, sputum cultures, negative to date ABX: Azithromycin Solumedrol taper Coumadin dosing for INR 2-3 GI and DVT prophylaxis Incentive spirometry and pulmonary hygiene CT brain - neurology recommendations Cardiology recommendations Echocardiogram and carotid dopplers reviewed Patient did have a PSG in 2010 which showed no evidence of sleep disorder breathing We will continue to follow along. I performed an examination of the patient and discussed their management with the nurse practitioner. I have reviewed the nurse practitioner's note and agree with the documented findings and plan of care.
[2017-12-17 10:55] VITALS: RESP 18
[2017-12-17 11:33] LABS: Glucose,Whole Blood 97 mg/dL (75-99)
[2017-12-17 11:45] VITALS: BP 99/59; PULSE 66; TEMP 97.6
--- NOTE | 2017-12-17 12:26 | P.DS ---
Providers Date of admission: 12/11/17 16:45 Expected date of discharge: 12/17/17 Attending physician: Wiliam Alcazar Consults: 12/11/17 16:45 Consult Physician Routine Consulting Provider: Benito King Consult Reason/Comments: known Do you want consulting provider notified?: Yes Consult Physician Routine Consulting Provider: Parvin Malagon Consult Reason/Comments: chf Do you want consulting provider notified?: Yes 12/12/17 00:10 Consult Physician Routine Consulting Provider: Wanda Keith Consult Reason/Comments: CVA Do you want consulting provider notified?: Yes Primary care physician: Mikael Nicole Hospital Course: Final diagnosis COPD acute exacerbation with acute hypoxic hyper [place] respiratory failure with the failure of outpatient treatment as well as possible right upper lobe pneumonia possibly gram-negative status post BiPAP Change in mental status acute metabolic encephalopathy secondary to hypercapnia Stroke unlikely Gait dysfunction CHF with chronic basilar dysfunction History of atrial fibrillation History of DJD History of prostate disorder History of TIA Remote history and nicotine dependence Discharge disposition. Patient is discharged in a stable condition with guarded prognosis to ECF. Total time taken 35 minutes. Hospital course This 82-year-old gentleman with a past medical history of multiple Complex medical issues being followed by Dr. Nicole in the outpatient setting was admitted with a COPD acute exacerbation as well as respiratory failure. Patient was treated with the bronchodilators steroids and antibiotics. Patient improved significantly. Patient will be discharged in a stable condition with guarded prognosis with further plans to follow up with the primary physician and pulmonology. ECF rehab is recommended. BiPAP is also recommended at nighttime in the ECF. Please see the settings. See orders for further details. Patient Condition at Discharge: Serious Plan - Discharge Summary Discharge Rx Participant: No New Discharge Prescriptions: New Azithromycin [Zithromax] 500 mg PO DAILY #0 tab Budesonide/Formoterol Fumarate [Symbicort 160-4.5 Mcg Inhaler] 1 puff IH BID #1 hfa.aer.ad Folic Acid 1 mg PO DAILY@1200 tab Ipratropium-Albuterol Nebulize [Duoneb 0.5 mg-3 mg/3 ml Soln] 3 ml INHALATION RT-QID ampul.neb Pantoprazole [Protonix] 40 mg PO AC-BRKFST #0 tablet.dr predniSONE 10 mg PO DIRECTED #30 tab Thiamine [Vitamin B-1] 100 mg PO DAILY@1200 tab Continue Cyanocobalamin [Vitamin B-12] 500 mcg PO BID Budesonide [Pulmicort Flexhaler] 1 - 2 puff INHALATION RT-BID Warfarin [Coumadin] 5 mg PO POLLARD Warfarin [Coumadin] 2.5 mg PO MOTUWETHFRSA Montelukast [Singulair] 10 mg PO DAILY Atenolol [Tenormin] 50 mg PO HS Furosemide [Lasix] 40 mg PO DAILY Discontinued Albuterol Nebulized [Ventolin Nebulized] 2.5 mg INHALATION RT-Q8H Ipratropium-Albuterol Nebulize [Duoneb 0.5 mg-3 mg/3 ml Soln] 3 ml INHALATION RT-Q6H Discharge Medication List Atenolol [Tenormin] 50 mg PO HS 11/10/14 [History] Budesonide [Pulmicort Flexhaler] 1 - 2 puff INHALATION RT-BID 11/10/14 [History] Cyanocobalamin [Vitamin B-12] 500 mcg PO BID 11/10/14 [History] Montelukast [Singulair] 10 mg PO DAILY 11/10/14 [History] Warfarin [Coumadin] 2.5 mg PO MOTUWETHFRSA 11/10/14 [History] Warfarin [Coumadin] 5 mg PO POLLARD 11/10/14 [History] Furosemide [Lasix] 40 mg PO DAILY 12/11/17 [History] Azithromycin [Zithromax] 500 mg PO DAILY #0 tab 12/17/17 [Rx] Budesonide/Formoterol Fumarate [Symbicort 160-4.5 Mcg Inhaler] 1 puff IH BID #1 hfa.aer.ad 12/17/17 [Rx] Folic Acid 1 mg PO DAILY@1200 tab 12/17/17 [Rx] Ipratropium-Albuterol Nebulize [Duoneb 0.5 mg-3 mg/3 ml Soln] 3 ml INHALATION RT -QID ampul.neb 12/17/17 [Rx] Pantoprazole [Protonix] 40 mg PO AC-BRKFST #0 tablet.dr 12/17/17 [Rx] Thiamine [Vitamin B-1] 100 mg PO DAILY@1200 tab 12/17/17 [Rx] predniSONE 10 mg PO DIRECTED #30 tab 12/17/17 [Rx] Follow up Appointment(s)/Referral(s): Mikael Nicole MD [Primary Care Provider] - 1-2 days Wanda Keith MD [STAFF PHYSICIAN] - 2 Weeks Benito King MD [STAFF PHYSICIAN] - 1-2 Days Activity/Diet/Wound Care/Special Instructions: bipap at night if possible same settings as here.
--- NOTE | 2017-12-18 17:21 | CDI ---
Last Revision, June 2017 Documentation Clarification Form Date: 12/18/17 From: Prabha Gigi Beth White, Front End Software Engineer Hours-8:30 am & 5 pm [place] Admit Date: 12/11/2017 4:45:00 PM Patient Name: Bernardino Fountain Visit Number: [id number] Discharge Date: 12/17/17 ATTENTION: The Clinical Documentation Specialists (CDI) and [facility] Coding Staff appreciate your assistance in clarifying documentation. Please respond to the clarification below the line at the bottom and electronically sign. The CDI & [facility] Coding staff will review the response and follow-up if needed. Please note: Queries are made part of the Legal Health Record. If you have any questions, please contact the author of this message via ITS. Dr. Wiliam Alcazar Suspect sepsis is documented in the consult and PNs 12/13, 12/14, 12/15, 12/16 & 12/17. WBC/Left Shift: 7.4/6.5 Lactic acid: 2.5 Lactic Ac Sepsis Rflx: Yes Blood cultures: No growth Vitals signs on admission: Temp-97.4, P-113, RR-26, O2 sat-81 Antibiotics: Zithormax, IVP Rocephin In your professional opinion, please clarify if these findings signify one of the following conditions, whether the condition is POA, and cause, if known: Sepsis ruled out Sepsis ruled in Severe Sepsis Septic Shock Other, please specify Unable to determine Present on Admission: Yes No SIRS Criteria..2 or more of the following may indicate SIRS: Temperature < 96.8F (36C) or > 101.0F (38.3C) Heart Rate > 90 bpm Respiratory Rate > 20 breaths/min or PaCO2 < 32 mmHg White Blood Cell Count > 12,000 or < 4,000 cells/mm3 or > 10% bands Lactate >2.0 mmol/L (>4.0 is equivalent to septic shock) Please continue to document in your progress notes and discharge summary in order to capture severity of illness and risk of mortality. Include clinical findings that support your diagnosis. Sepsis ruled out MTDD
== END 2017-12-17 15:52 | DRG 177 ==
LOC: EC 16:21 → 6SEL 16:45
PROVIDERS: ADMIT Hospitalist; ATTEND Hospitalist
PROC: 5A09557 Assistance with Respiratory Ventilation, Greater than 96 Consecutive Hours, Continuous Positive Airway Pressure (ICD-10-PCS; principal; 2017-12-11)
DX: J15.6 Pneumonia due to other Gram-negative bacteria (principal); J96.21 Acute and chronic respiratory failure with hypoxia; G93.41 Metabolic encephalopathy; I50.33 Acute on chronic diastolic (congestive) heart failure; J96.22 Acute and chronic respiratory failure with hypercapnia; J44.0 Chronic obstructive pulmonary disease with (acute) lower respiratory infection; G93.1 Anoxic brain damage, not elsewhere classified; J98.11 Atelectasis; J44.1 Chronic obstructive pulmonary disease with (acute) exacerbation; I48.2 Chronic atrial fibrillation; I11.0 Hypertensive heart disease with heart failure; I08.3 Combined rheumatic disorders of mitral, aortic and tricuspid valves; I27.20 Pulmonary hypertension, unspecified; F03.90 Unspecified dementia, unspecified severity, without behavioral disturbance, psychotic disturbance, mood disturbance, and anxiety; R79.1 Abnormal coagulation profile; T45.515A Adverse effect of anticoagulants, initial encounter; N40.0 Benign prostatic hyperplasia without lower urinary tract symptoms; R63.3 Feeding difficulties; R26.9 Unspecified abnormalities of gait and mobility; R73.9 Hyperglycemia, unspecified; M19.91 Primary osteoarthritis, unspecified site; E66.9 Obesity, unspecified; Z68.24 Body mass index [BMI] 24.0-24.9, adult; Z99.81 Dependence on supplemental oxygen; Z79.01 Long term (current) use of anticoagulants; Z79.51 Long term (current) use of inhaled steroids; Z79.899 Other long term (current) drug therapy; Z87.891 Personal history of nicotine dependence; Z86.73 Personal history of transient ischemic attack (TIA), and cerebral infarction without residual deficits; Z87.74 Personal history of (corrected) congenital malformations of heart and circulatory system; Z98.42 Cataract extraction status, left eye; Z90.79 Acquired absence of other genital organ(s); Z98.41 Cataract extraction status, right eye; Z82.5 Family history of asthma and other chronic lower respiratory diseases; Z82.49 Family history of ischemic heart disease and other diseases of the circulatory system
CPT/HCPCS: 36415; 70450; 71045; 80048; 80053; 81003; 82550; 82553; 83036; 83605; 83735; 83880; 84100; 84484; 85025; 85027; 85610; 85730; 87040; 87070; 87086; 87205; 93005; 93306; 93880; 93970; 94640; 94660; 94760; 95819; 99291

== ENCOUNTER 2018-02-15 14:38 | Inpatient (IN) | payer MEDICARE, BC ==
--- NOTE | 2018-02-15 14:54 | ED ---
General Adult HPI - General Stated complaint: Respiratory Failure Time Seen by Provider: 02/15/18 14:40 Source: RN notes reviewed - History of Present Illness Initial comments: This is a 82-year-old male who presents to the emergency department from [place]. Patient came in with some respiratory distress and oxygenating poorly. The patient continued to decompensate in the emergency department eventually intubated the patient and should the patient to see us. They were under the impression of the patient had a pneumonia. Patient's vitals otherwise been stable once the patient was intubated. Patient was given Rocephin irregular facility. - Related Data Home Medications Medication Instructions Recorded Confirmed Atenolol [Tenormin] 50 mg PO HS 11/10/14 02/15/18 Budesonide [Pulmicort Flexhaler] 1 - 2 puff INHALATION RT-BID 11/10/14 02/15/18 Cyanocobalamin [Vitamin B-12] 500 mcg PO BID 11/10/14 02/15/18 Montelukast [Singulair] 10 mg PO HS 11/10/14 02/15/18 Warfarin [Coumadin] 2.5 mg PO MOTUWETHFRSA 11/10/14 02/15/18 Warfarin [Coumadin] 5 mg PO POLLARD 11/10/14 02/15/18 Furosemide [Lasix] 40 mg PO DAILY 12/11/17 02/15/18 Folic Acid 1 mg PO DAILY 02/15/18 02/15/18 Memantine [Namenda] 10 mg PO DAILY 02/15/18 02/15/18 Previous Rx's Medication Instructions Recorded Ipratropium-Albuterol Nebulize 3 ml INHALATION RT-QID ampul.neb 12/17/17 [Duoneb 0.5 mg-3 mg/3 ml Soln] Pantoprazole [Protonix] 40 mg PO AC-BRKFST #0 tablet. 12/17/17 Thiamine [Vitamin B-1] 100 mg PO DAILY@1200 tab 12/17/17 Allergies Allergy/AdvReac Type Severity Reaction Status Date / Time No Known Allergies Allergy Verified 02/15/18 15:43 Review of Systems ROS Statement: Those systems with pertinent positive or pertinent negative responses have been documented in the HPI. ROS Other: All systems not noted in ROS Statement are negative. Past Medical History Past Medical History: Atrial Fibrillation, COPD, CVA/TIA, Osteoarthritis (OA), Prostate Disorder Additional Past Medical History / Comment(s): TIA-2004, home oxygen 2 liters n/c , hx atrial septal defect History of Any Multi-Drug Resistant Organisms: None Reported Past Surgical History: Heart Catheterization Additional Past Surgical History / Comment(s): PROSTATE SURGERY(turp), JUSTA 2014 percutaneous closure of atrial septal defect, anibal cataracts Past Anesthesia/Blood Transfusion Reactions: No Reported Reaction Past Alcohol Use History: Daily - Past Family History Father Family Medical History: Myocardial Infarction ([place]) Mother Family Medical History: Congestive Heart Failure (CHF), COPD Additional Family Medical History / Comment(s): EMPHYSEMA General Exam - General Exam Comments Initial Comments: GENERAL: Patient is well-developed and well-nourished. Patient is nontoxic and well- hydrated and is in no acute distress. Patient's on a ventilator and was just given fentanyl and ketamine ENT: Neck is soft and supple. No significant lymphadenopathy is noted. Oropharynx is clear. Moist mucous membranes. EYES: The sclera were anicteric and conjunctiva were pink and moist. Extraocular movements were intact and pupils were equal round and reactive to light. Eyelids were unremarkable. PULMONARY: Patient is on a ventilator and difficulty urinating good breath sounds. CARDIOVASCULAR: There is a regular rate and rhythm without any murmurs gallops or rubs. ABDOMEN: Soft and nontender with normal bowel sounds. SKIN: Skin is clear with no lesions or rashes and otherwise unremarkable. NEUROLOGIC: Patient is sedated so unable to assess his neuro status Course Vital Signs 02/15/18 02/15/18 02/15/18 14:46 15:14 16:00 Temperature 97.0 F L Pulse Rate 71 73 78 Respiratory 16 16 20 Rate Blood Pressure 89/71 112/58 120/64 O2 Sat by Pulse 98 98 95 Oximetry 02/15/18 16:12 Temperature Pulse Rate 78 Respiratory 20 Rate Blood Pressure 124/69 O2 Sat by Pulse 95 Oximetry Medical Decision Making - Medical Decision Making Chest x-ray shows a right upper lobe pneumonia. I spoke with Dr. 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 I spoke with Dr. King he wants to be on his pulmonology. I spoke with Court he agreed to admit the patient. I wrote admitting orders. - Lab Data Lab Results 02/15/18 02/15/18 Range/Units 15:43 15:45 Sample Site LRA ABG pH 7.37 (7.35-7.45) ABG pCO2 69 H (35-45) mmHg ABG pO2 68 L (83-108) mmHg ABG HCO3 40 H* (21-25) mmol/L ABG Total CO2 42 H (19-24) mmol/L ABG O2 Saturation 94.3 (94-97) % ABG Base Excess 14.3 mmol/L Edmundo Test Yes FiO2 40 % Plasma Lactic Acid Ricco 1.3 (0.7-2.0) mmol/L Disposition Clinical Impression: Pneumonia, Respiratory failure, COPD exacerbation Disposition: ADMITTED IP TO THIS HOSP Referrals: Mikael Nicole MD [Primary Care Provider] - 1-2 days Time of Disposition: 16:39
[2018-02-15] MEDS: LORazepam 2 MG/ML INJ IV STA ×2 (15:18→17:16)
--- NOTE | 2018-02-15 15:31 | XR ---
EXAMINATION TYPE: XR chest 1V portable DATE OF EXAM: 02/15/2018 Comparison: 12/13/2017 Clinical History: 82-year-old male Pain Findings: Heart borderline enlarged. ET tube is satisfactory. NG tube courses below the diaphragm. Interstitial and patchy densities in the upper lungs are new from 12/13/2017 and increased from 02/15/2018. Impression: Borderline heart size with worsening upper lung infiltrates as compared to outside exam earlier today .
[2018-02-15] MEDS ORDERED: AZITHROMYCIN 500 MG in DEXTROSE 5% IN WATER 250 ML IVPB STA ×2 (15:36)
[2018-02-15] MEDS ORDERED: SODIUM CHLORIDE 0.9% 1,000 ML IV ONE (15:38)
[2018-02-15 15:48] LABS: ABG Base Excess 14.3 mmol/L; ABG Oxygen Saturation 94.3 % (94-97); ABG PCO2 69 mmHg (35-45); ABG PH 7.37 (7.35-7.45); ABG PO2 68 mmHg (83-108); ABG TCO2 42 mmol/L (19-24)
[2018-02-15 15:56] LABS: ABG HCO3 40 mmol/L (21-25)
[2018-02-15] MEDS ORDERED: methylPREDNISolone SOD SUCCI 125 MG/2 ML VIAL IV STA (16:36)
[2018-02-15] MEDS ORDERED: IPRATROPIUM-ALBUTEROL 3 ML NEB INHALATION PRN (16:39)
[2018-02-15] MEDS ORDERED: NALOXONE 0.4 MG/ML 1 ML VIAL IV PRN (16:39)
--- NOTE | 2018-02-15 17:04 | P.CNPUL ---
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 The patient was found to be quite hypoxic with pulse ox of 70%. The patient was experiencing progressive increase in dyspnea and he was found to be desaturating in terms of his oxygenation. At the time of his arrival to the emergency department at [facility] the patient had a pulse ox of 70% on room air. His stated that he had no fever and no chills. He had no significant cough. He denied having any chest pain. No nausea. No vomiting. No abdominal pain. He has chronic peripheral edema that was slightly worse than the usual. He was recently [place] and he was being evaluated by Dr. Keith regarding memory problems and dementia. He is a full code. At a time of arrival to the burst department, the patient was found to be severely hypoxic, initially was placed on 100% nonrebreather facemask. Ultimately his mentation got worse and the patient had to be intubated and placed on a mechanical ventilator. Following intubation, the patient was transferred to [facility] for further evaluation. Chest x-ray showed increased interstitial markings in the upper lobes bilaterally more so in the lung apices. No significant orotracheal secretions. He is currently hemodynamically stable on no pressors. He is sedated with benzodiazepines that was given to him in the emergency department. At this point in time, the patient assist-control mode of ventilation at the rate of 20, tidal volume was at 550 which I dropped down to 450 and his FiO2 is at 40%. Blood gases showed a pH of 7.37 with a pCO2 of 69 and a pO2 of 68. No significant leukocytosis. He has chronic atrial fibrillation. His articulation with warfarin. His PT/ INR was likely therapeutic at 2.0. Review of Systems ROS unobtainable: due to endotracheal tube Past Medical History Past Medical History: Atrial Fibrillation, COPD, CVA/TIA, Osteoarthritis (OA), Prostate Disorder Additional Past Medical History / Comment(s): COPD, chronic hypoxic respiratory failure, chronic atrial fibrillation, BPH, previous history of TIA, history of atrial septal defect that was surgically repaired, hypertension, hyperlipidemia , previous history of herpes zoster, dementia with significant impairment in memory. History of Any Multi-Drug Resistant Organisms: None Reported Past Surgical History: Heart Catheterization Additional Past Surgical History / Comment(s): PROSTATE SURGERY(turp), JUSTA 2014 percutaneous closure of atrial septal defect, anibal cataracts Past Anesthesia/Blood Transfusion Reactions: No Reported Reaction Past Alcohol Use History: Daily - Past Family History Father Family Medical History: Myocardial Infarction ([place]) Mother Family Medical History: Congestive Heart Failure (CHF), COPD Additional Family Medical History / Comment(s): EMPHYSEMA Medications and Allergies Home Medications Medication Instructions Recorded Confirmed Type Atenolol [Tenormin] 50 mg PO HS 11/10/14 02/15/18 History Budesonide [Pulmicort Flexhaler] 1 - 2 puff INHALATION RT-BID 11/10/14 02/15/18 History Cyanocobalamin [Vitamin B-12] 500 mcg PO BID 11/10/14 02/15/18 History Montelukast [Singulair] 10 mg PO HS 11/10/14 02/15/18 History Warfarin [Coumadin] 2.5 mg PO MOTUWETHFRSA 11/10/14 02/15/18 History Warfarin [Coumadin] 5 mg PO POLLARD 11/10/14 02/15/18 History Furosemide [Lasix] 40 mg PO DAILY 12/11/17 02/15/18 History Ipratropium-Albuterol Nebulize 3 ml INHALATION RT-QID ampul.neb 12/17/17 Rx [Duoneb 0.5 mg-3 mg/3 ml Soln] Pantoprazole [Protonix] 40 mg PO AC-BRKFST #0 tablet. 12/17/17 02/15/18 Rx Thiamine [Vitamin B-1] 100 mg PO DAILY@1200 tab 12/17/17 02/15/18 Rx Folic Acid 1 mg PO DAILY 02/15/18 02/15/18 History Memantine [Namenda] 10 mg PO DAILY 02/15/18 02/15/18 History Allergies Allergy/AdvReac Type Severity Reaction Status Date / Time No Known Allergies Allergy Verified 02/15/18 15:43 Physical Exam Vitals: Vital Signs Temp Pulse Resp BP Pulse Ox 02/15/18 16:12 78 20 124/69 95 02/15/18 16:00 78 20 120/64 95 02/15/18 15:14 73 16 112/58 98 02/15/18 14:46 97.0 F L 71 16 89/71 98 Intake and Output 02/15/18 02/15/18 02/15/18 06:59 14:59 22:59 Other: Weight 92.5 kg Gen. appearance the patient is sedated, comfortable no acute distress. Intubated on mechanical ventilator. Head exam was generally normal. There was no scleral icterus or corneal arcus. Mucous membranes were moist. Neck was supple and without jugular venous distension, thyromegaly, or carotid bruits. Carotids were easily palpable bilaterally. There was no adenopathy.Orogastric and orotracheal tube are both in place. Lungs sounds are diminished bilaterally and there is prolongation of expiratory phase of breathing and scattered expiratory wheezes throughout the lung page. The peak airway pressures around 32-33 cm of water. Heart sounds are irregular, positive S1-S2 and there is no significant murmurs appreciated. Abdominal exam revealed normal bowel sounds. The abdomen was soft, non-tender, and without masses, organomegaly, or appreciable enlargement of the abdominal aorta. Examination of the extremities revealed easily palpable radial, femoral and pedal pulses. There was no cyanosis, clubbing or edema. Examination of the skin revealed no evidence of significant rashes, suspicious appearing nevi or other concerning lesions. Neurologically the patient is sedated. He withdraws to painful stimuli in all 4 extremities. Pupils are equal and reactive to light. Results - Laboratory Findings ABG ABG pH 7.37 (7.35-7.45) 02/15/18 15:45 ABG pCO2 69 mmHg (35-45) H 02/15/18 15:45 ABG pO2 68 mmHg (83-108) L 02/15/18 15:45 ABG O2 Saturation 94.3 % (94-97) 02/15/18 15:45 Abnormal lab findings: Abnormal Labs 02/15/18 15:45 ABG pCO2 69 H ABG pO2 68 L ABG HCO3 40 H* ABG Total CO2 42 H - Diagnostic Findings Chest x-ray: image reviewed Assessment and Plan Plan: assessment 1 acute hypoxic/hypercapnic respiratory failure likely on the basis of COPD. The patient is an acute COPD exacerbation. Suspect an upper lobe pneumonia. Suspect a component of CHF as the patient's chest x-ray shows increased interstitial pulmonary markings bilaterally. Pulmonary embolus is less likely as the patient has been on long-term anticoagulation with warfarin and the patient's PT/INR has been therapeutic at time of admission.currently the patient intubated on a mechanical ventilator. 2 advanced end-stage COPD 3 chronic hypoxic respiratory failure secondary to COPD 4 chronic atrial fibrillation 5TIA, history of 6 dementia 7 hypertension 8 hyperlipidemia 9 BPH 10 osteoarthritis Plan We'll bring the patient to the intensive care unit. Continue vent support. I' ll drop the tidal volume to 450. Keep the respiratory rate of 20. FiO2 at 40% . Repeat blood gases. Start the patient on sedation and the patient will be sedated with Diprivan/propofol drip. We'll continuebreathing treatments and will put the patient on DuoNeb nebulized seems [id number], IV Solu Medrol 60 mg every 6 hours, empiric antibiotic coverage with a combination of Rocephin and Zithromax, obtain blood cultures, obtain sputum cultures,the echo from a few months back showed a preserved LV function with an ejection fraction of 50- 55%. May benefit from gentle diuresis a later stage. CTA scan of the chest with contrast. Continue anticoagulation with warfarin and monitor daily PT/ INR.IV Protonix for GI prophylaxis. We'll continue to follow make further recommendations based on his progress. I'm covering Dr. Avila for this evaluation.
[2018-02-15] MEDS ORDERED: LORazepam 2 MG/ML INJ IV STA (17:13)
--- NOTE | 2018-02-15 18:07 | CT ---
EXAMINATION TYPE: CT chest angio for PE DATE OF EXAM: 02/15/2018 COMPARISON: None HISTORY: Pain CT DLP: 488.1 mGycm Automated exposure control for dose reduction was used. CONTRAST: CT Chest for pulmonary embolism performed with with IV Contrast, patient injected with 100 mL of Isov ue 370. FINDINGS: There are 3-D post processed images. There is some nodular infiltrate and pleural thickening at the lung apices. There is interstitial den sity in both lungs and more in the upper lobes. There is bilateral small pleural effusions. There is no pericardial effusion. There is normal contrast opacification of the pulmonary arteries. I see no f illing defect. There is no mediastinal adenopathy. Thoracic aorta is atheromatous. There is nasogastr ic tube noted. There is mild aneurysmal Bason the aorta measures 4.2 cm. There is spurring in the tho racic spine. IMPRESSION: No evidence of pulmonary embolism. Fibrotic changes at the lung apices and in both upper lobes. Small pleural effusions. Mild aneurysm of the ascending aorta.
[2018-02-15] MEDS: WARFARIN 2.5 MG TAB PO SCH (18:08)
[2018-02-15] MEDS: EMPTY BAG 1 BAG with PROPOFOL 1,000 MG IV SCH (18:25)
--- NOTE | 2018-02-15 19:06 | CONS ---
CONSULTATION Bernardino Fountain is an 82-year-old male who presented to our office in [employer] with severe shortness of breath. He had also been getting confused, was nodding off for the last 48 hours. He was seen in the office briefly. Initial vitals showed an oxygen saturation of 68%. He subsequently was sent to the ER at [facility]. He was subsequently intubated and transferred down to [facility]. He is sedated on a vent at this time. From his , history was obtained. He had no fever, chills or rigors. PAST MEDICAL HISTORY: Positive for severe COPD with an asthmatic component. His baseline FEV1 in 2017 was 0.64L with an which was 19% of predicted with an improvement in the FEV1 after bronchodilator to 0.82L, which was 24% of predicted. The patient had hyperinflation and a decreased DLCO at 21%. The patient has a known history of periodic limb movement syndrome, history of atrial fibrillation, history of atherosclerotic heart disease, history off on nodularity in the lung in the right upper zone in an area of previous fibrosis. SOCIAL HISTORY: Patient used to smoke cigarettes in the past. He does not drink alcohol excessively. FAMILY HISTORY: Positive for acute myocardial infarction in his father, CHF and COPD in his mother. MEDICATIONS PRIOR TO ADMISSION: 1. Warfarin. 2. Thiamine. 3. Protonix. 4. Singular. 5. Namenda. 6. Albuterol and ipratropium. 7. Pulmicort. 8. Tenormin. 9. Vitamin B12. 10.Folic acid and. 11.Lasix. REVIEW OF SYSTEMS: Noncontributory. PHYSICAL EXAMINATION: The patient was sedated on a ventilator. Respiratory rate is 20, pulse rate of 81, blood pressure 118/86, O2 sat on 60% FiO2 was 99%. HEENT reveals pupils that are equal. ET tube in place. Chest revealed severe decrease in breath sounds with prolonged expiration. Faint expiratory wheezing. Cardiovascular system revealed an S1, S2. Abdomen is soft. There is 1+ to 2+ pedal edema. ABG showed a pH of 7.37, pCO2 of 69, PO2 of 68, bicarb of 40, O2 sat of 94.3% on an FiO2 of 40%. Lactic acid is 1.3. Chest CTA showed nodular infiltrate with pleural thickening in the lung bases. There is increased tissue density in both lungs, more in the upper lobe. There is no evidence of pulmonary embolus. IMPRESSION: At this time is: 1. Acute respiratory failure secondary to chronic obstructive pulmonary disease with asthma with acute exacerbation. 2. Baseline interstitial fibrosis. 3. Atrial fibrillation. 4. Respiratory acidosis, acute on chronic. At this point in time from a pulmonary standpoint, would keep the patient on the vent with a relatively small tidal volume, high flow rate, decrease the FiO2 as tolerated. Keep him on IV steroids, bronchodilators, aerosolized steroids, keep him on GI prophylaxis. Would continue warfarin, regarding his atrial fibrillation. We will follow him closely during his hospital stay and appreciate the opportunity to participate in his care. We will add bronchodilators and aerosolized steroids to his regimen. MMODL / IJN: [id number] /
[2018-02-15] MEDS: IPRATROPIUM-ALBUTEROL 3 ML NEB INHALATION SCH (19:28)
[2018-02-15] MEDS: BUDESONIDE 0.5 MG/2 ML NEBU INHALATION SCH (19:28)
[2018-02-15] MEDS: PROPOFOL 1,000 MG in EMPTY BAG 1 BAG IV SCH (19:30)
[2018-02-15] MEDS: cefTRIAXone IN SWFI 1,000 MG/10 ML SYRINGE IVP SCH (19:34)
[2018-02-15 19:39] LABS: INR 2.3 (<1.2)
[2018-02-15 20:45] LABS: Glucose,Whole Blood 140 mg/dL (75-99)
[2018-02-15] MEDS: MONTELUKAST 10 MG TAB PO SCH (21:21)
[2018-02-15] MEDS: ATENOLOL 50 MG TAB PO SCH (21:21)
[2018-02-15] MEDS: FUROSEMIDE 10 MG/ML 2 ML VIAL IV SCH (21:22)
[2018-02-16] MEDS: methylPREDNISolone SOD SUCCI 125 MG/2 ML VIAL IV SCH ×5 (00:24→23:50)
[2018-02-16] MEDS: PROPOFOL 1,000 MG in EMPTY BAG 1 BAG IV SCH ×2 (02:22→12:47)
[2018-02-16 04:49] LABS: Amorphous Sediment,Urine Rare /hpf; Appearance,Urine Turbid (Clear); Bacteria,Urine Rare /hpf; Bilirubin,Urine Negative (Negative); Blood,Urine Negative (Negative); Color,Urine Yellow; Glucose,Urine (UA) Negative (Negative); Hyaline Casts,Urine 1 /lpf (0-2); Ketones,Urine Negative (Negative); Leukocyte Esterase,Urine Negative (Negative); Mucus,Urine Occasional /hpf; Nitrite,Urine Negative (Negative); Protein,Urine Trace (Negative); RBC,Urine 1 /hpf (0-5); Urobilinogen,Urine <2.0 mg/dL (<2.0); WBC,Urine <1 /hpf (0-5)
[2018-02-16 04:50] LABS: Specific Gravity,Urine 1.047 (1.001-1.035)
[2018-02-16 05:01] LABS: ABG Base Excess 18.3 mmol/L; ABG Oxygen Saturation 98.3 % (94-97); ABG PCO2 60 mmHg (35-45); ABG PH 7.46 (7.35-7.45); ABG PO2 90 mmHg (83-108); ABG TCO2 44 mmol/L (19-24)
[2018-02-16 05:02] LABS: Basophils % (A) 0 %; Eosinophils % (A) 0 %; HCT 38.1 % (39.0-53.0); HGB 12.6 gm/dL (13.0-17.5); Lymphocytes # (A) 0.6 k/uL (1.0-4.8); Lymphocytes % (A) 11 %; MCH 32.6 pg (25.0-35.0); MCV 98.8 fL (80.0-100.0); Macrocytosis Slight; Monocytes # (A) 0.3 k/uL (0-1.0); Monocytes % (A) 4 %; Neutrophils # (A) 4.9 k/uL (1.3-7.7); Neutrophils % (A) 84 %; Platelet Count 153 k/uL (150-450); RBC 3.86 m/uL (4.30-5.90); RDW 14.9 % (11.5-15.5); WBC 5.8 k/uL (3.8-10.6)
[2018-02-16 05:04] LABS: INR 2.3 (<1.2); Prothrombin Time 20.5 sec (9.0-12.0)
[2018-02-16 05:05] LABS: ABG HCO3 42 mmol/L (21-25)
[2018-02-16 05:24] LABS: ALT 30 U/L (21-72); AST 30 U/L (17-59); Albumin 3.2 g/dL (3.5-5.0); Alkaline Phosphatase 46 U/L (38-126); Blood Urea Nitrogen 16 mg/dL (9-20); Calcium 8.7 mg/dL (8.4-10.2); Chloride 90 mmol/L (98-107); Glucose 149 mg/dL (74-99); Magnesium 1.8 mg/dL (1.6-2.3); Phosphorus 4.2 mg/dL (2.5-4.5); Potassium 4.4 mmol/L (3.5-5.1); Sodium 135 mmol/L (137-145); Total Bilirubin 0.4 mg/dL (0.2-1.3); Total Protein 5.7 g/dL (6.3-8.2)
[2018-02-16 05:30] LABS: Anion Gap 8 mmol/L; Carbon Dioxide 37 mmol/L (22-30)
[2018-02-16] MEDS ORDERED: Magnesium Replacement Protocol 1 EACH MISC MISCELLANE PRN (05:36)
[2018-02-16 06:20] LABS: Glucose,Whole Blood 149 mg/dL (75-99)
[2018-02-16] MEDS: INSULIN ASPART 100 UNIT/ML 1 ML 10 ML VIAL SQ SCH ×4 (06:22→23:51)
[2018-02-16] MEDS: MAGNESIUM SULFATE-D5W PMX 1 GM in DEXTROSE/WATER 1 100ML.BAG IVPB SCH ×2 (06:23→07:18)
--- NOTE | 2018-02-16 06:51 | XR ---
EXAMINATION TYPE: XR chest 1V portable DATE OF EXAM: 02/16/2018 HISTORY: tube placement. REFERENCE: Previous study dated 02/15/2018. FINDINGS: Lung volumes are prominent. Heart size is upper limits of normal. There is continuing airsp breann disease in the upper lobes bilaterally. Overall aeration has improved. IMPRESSION: 1. COPD. 2. BORDERLINE CARDIOMEGALY. 3. IMPROVED AERATION, BOTH LUNGS.
[2018-02-16] MEDS ORDERED: INSULIN ASPART 100 UNIT/ML 1 ML 10 ML VIAL SQ SCH (07:30)
--- NOTE | 2018-02-16 07:46 | HP ---
HISTORY AND PHYSICAL CHIEF COMPLAINT: Shortness of breath. HISTORY OF PRESENT ILLNESS: This 82-year-old gentleman with a past medical history of multiple medical problems including COPD, history of CHF, atrial ablation, DJD, history of prostate disorder, history of TIA being followed by Dr. Nicole in the outpatient setting, apparently living with his . The patient has seen Dr. GUDELIA King previously. The patient is complaining of shortness of breath and cough for the last 3 days, which is worsening and patient was taken to [facility] Emergency Room and the patient was oxygenating poorly with saturations 70. The patient was continued to decompensate and subsequently patient intubated and the patient was transferred to [facility] and admitted for evaluation and further treatment through the emergency room. Pulmonary and Intensive consultations are in progress at this time. The patient also has bilateral pneumonia. A chest CT was also done. The patient is currently mechanically ventilated. Vent settings are noted. The patient unable to give a coherent history so most of history taken from my discussion with staff and review of chart at this time. PAST MEDICAL HISTORY: History of COPD, history atrial fibrillation, CVA, DJD, history of prostate disorder, chronic hypoxic respiratory failure. HOME MEDICATIONS: 1. Coumadin 5 mg p.o. Sunday, 2.5 mg Sunday, Sunday, , Sunday, Sunday. 2. Thiamine 100 mg p.o. daily. 3. Mysoline daily. 4. Protonix 40 mg daily. 5. Singulair 10 mg daily. 6. Namenda 10 mg q.h.s. 7. DuoNeb q.i.d. 8. Lasix 40 mg p.o. 9. Folic acid 1 mg b.i.d. 10.Vitamin B12 500 mcg. 11.Pulmicort 1-2 puffs b.i.d. 12.Tenormin 50 mg q.h.s. ALLERGIES: Allergies are none. FAMILY HISTORY, SOCIAL HISTORY AND REVIEW OF SYSTEMS: Could not be taken because of the patient is mechanically ventilated and intubated. Previous history of smoking and occasional alcohol per chart. PHYSICAL EXAM: Patient is mechanically ventilated, intubated, sedated. Pulse 90, blood pressure 90/50, respiration 20, temperature 98.2, pulse ox is 92% on 50% FiO2. HEENT: Conjunctivae normal. Oral mucosa moist. NECK: No jugular venous distention. No carotid bruit. No lymph node enlargement. CARDIOVASCULAR: S1, S2. No S3, no S4. RESPIRATORY: Breath sounds diminished in the bases. A few scattered rhonchi and expiratory wheezing and crackles. ABDOMEN: Soft, obese, nontender. No mass palpable. LEGS: No edema, no swelling. NERVOUS SYSTEM: Higher functions as mentioned. Moves all four limbs. No focal motor deficits. Patient is sedated. LYMPHATICS: No lymphadenopathy in the neck, axillae, groin. SKIN: No ulcer, rash or bleeding. LABS: ABGs are pH of 7.37, CO2 is 69, PO2 68, and INR is 2.3. Other labs are noted. ASSESSMENT: 1. Chronic obstructive pulmonary disease acute exacerbation with bilateral pneumonia possibly gram-negative with acute hypoxic hypercarbic respiratory failure on mechanical ventilation. 2. History atrial fibrillation. 3. Chronic obstructive pulmonary disease. 4. Cerebrovascular accident, transient ischemic attack. 5. Coumadin monitoring. 6. Degenerative joint disease. 7. History of benign prostatic hypertrophy. 8. Chronic hypoxic respiratory failure. 9. Chronic atrial fibrillation. 10.History of ASD surgical repair. 11.History of herpes zoster. 12.History of dementia. 13.Remote history of nicotine dependence. RECOMMENDATIONS AND DISCUSSION: This 82-year-old gentleman who presented with multiple complex medical issues, we will monitor the patient closely. Continue the current management and symptomatic treatment. Continue the broad-spectrum IV antibiotics. Otherwise continue the bronchodilators, steroids. Monitor blood sugars closely. Monitor PT/INR closely. Continue with Pulmonary picking supervisor consultations. Guarded prognosis. 2D echo has been ordered. Guarded prognosis because of multiple complex medical issues. Further recommendations to follow. Cultures also will be obtained. Discussed with the family who understands. Copy of dictation forwarded to Dr. Nicole who is the primary physician. MMODL / IJN: [id number] /
[2018-02-16] MEDS: BUDESONIDE 0.5 MG/2 ML NEBU INHALATION SCH ×2 (08:07→19:19)
[2018-02-16] MEDS: IPRATROPIUM-ALBUTEROL 3 ML NEB INHALATION SCH ×4 (08:07→19:19)
[2018-02-16] MEDS: MEMANTINE 10 MG TAB PO SCH (08:34)
[2018-02-16] MEDS: PANTOPRAZOLE 40 MG/10 ML VIAL IVP SCH (08:34)
[2018-02-16] MEDS: FUROSEMIDE 10 MG/ML 2 ML VIAL IV SCH (08:34)
--- NOTE | 2018-02-16 11:20 | P.PN ---
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 The patient was found to be quite hypoxic with pulse ox of 70%. The patient was experiencing progressive increase in dyspnea and he was found to be desaturating in terms of his oxygenation. At the time of his arrival to the emergency department at [facility] the patient had a pulse ox of 70% on room air. His stated that he had no fever and no chills. He had no significant cough. He denied having any chest pain. No nausea. No vomiting. No abdominal pain. He has chronic peripheral edema that was slightly worse than the usual. He was recently [place] and he was being evaluated by Dr. Keith regarding memory problems and dementia. He is a full code. At a time of arrival to the burst department, the patient was found to be severely hypoxic, initially was placed on 100% nonrebreather facemask. Ultimately his mentation got worse and the patient had to be intubated and placed on a mechanical ventilator. Following intubation, the patient was transferred to [facility] for further evaluation. Chest x-ray showed increased interstitial markings in the upper lobes bilaterally more so in the lung apices. No significant orotracheal secretions. He is currently hemodynamically stable on no pressors. He is sedated with benzodiazepines that was given to him in the emergency department. At this point in time, the patient assist-control mode of ventilation at the rate of 20, tidal volume was at 550 which I dropped down to 450 and his FiO2 is at 40%. Blood gases showed a pH of 7.37 with a pCO2 of 69 and a pO2 of 68. No significant leukocytosis. He has chronic atrial fibrillation. His articulation with warfarin. His PT/ INR was likely therapeutic at 2.0. On 02/16/2018, I'm seeing this patient for a follow-up. The patient is sedated on a mechanical ventilator. He is on a tidal volume of 450 with a rate of 20 and FiO2 of 40% and a PEEP of 5. Blood gases show some degree of alkalosis with a pH of 7.47 with a pCO2 of 60 and pO2 of 90. Airway pressures peak is at 32 with metastatic of 17. Still bronchospastic and wheezy. CAT scan of the chest was done and showed chronic fibrotic changes in the upper lobes bilaterally and some scarring. No evidence of any pneumonia. No evidence of any atelectasis or failure. Patient is also being diuresis with IV Lasix. He is receiving 20 mg of IV Lasix every 12 hours. He is in a negative fluid balance of 1.5 L since he came to the ICU. He is still in atrial fibrillation. INR therapeutic at 2.3. White cell count is not elevated. He remains and accommodation of bronchodilators and steroids. He is also on empiric antibiotic coverage. We'll initiate tube feeds. Objective - Vital Signs Vital signs: Vital Signs Temp 99 F 02/16/18 08:00 Pulse 85 02/16/18 11:00 Resp 20 02/16/18 11:00 BP 115/70 02/16/18 11:00 Pulse Ox 96 02/16/18 11:00 Intake & Output 02/15/18 02/16/18 02/16/18 18:59 06:59 18:59 Intake Total 246.585 30641.53 Output Total 1680 824 Balance -1433.415 75746.53 Weight 92.5 kg 99.2 kg Intake: IV 180 21495 0.9 KVO 180 39878 Magnesium Sulfate-D5w Pmx 100 1 gm In Dextrose/Water 1 100ml.bag @ 100 mls/hr IVPB Q1H AUDREY Rx#: [id number] Intake, IV Titration 66.585 62.53 Amount Propofol 1,000 mg In 66.585 62.53 Empty Bag 1 bag @ Titrate IV .Q0M AUDREY Rx#: [id number] Other 60 Output: Gastric Drainage 250 Urine 1680 574 Other: Voiding Method Indwelling Catheter Indwelling Catheter - Exam Gen. appearance the patient is sedated, comfortable no acute distress. Intubated on mechanical ventilator. Head exam was generally normal. There was no scleral icterus or corneal arcus. Mucous membranes were moist. Neck was supple and without jugular venous distension, thyromegaly, or carotid bruits. Carotids were easily palpable bilaterally. There was no adenopathy.Orogastric and orotracheal tube are both in place. Lungs sounds are diminished bilaterally and there is prolongation of expiratory phase of breathing and scattered expiratory wheezes throughout the lung page. The peak airway pressures around 32-33 cm of water. Heart sounds are irregular, positive S1-S2 and there is no significant murmurs appreciated. Abdominal exam revealed normal bowel sounds. The abdomen was soft, non-tender, and without masses, organomegaly, or appreciable enlargement of the abdominal aorta. Examination of the extremities revealed easily palpable radial, femoral and pedal pulses. There was no cyanosis, clubbing or edema. Examination of the skin revealed no evidence of significant rashes, suspicious appearing nevi or other concerning lesions. Neurologically the patient is sedated. He withdraws to painful stimuli in all 4 extremities. Pupils are equal and reactive to light. - Labs CBC & Chem 7: 02/16/18 04:16 02/16/18 04:16 Labs: Abnormal Lab Results - Last 24 Hours (Table) 02/15/18 02/15/18 02/15/18 Range/Units 15:45 18:57 20:43 RBC (4.30-5.90) m/uL Hgb (13.0-17.5) gm/dL Hct (39.0-53.0) % Lymphocytes # (1.0-4.8) k/uL PT 21.0 H (9.0-12.0) sec INR 2.3 H (<1.2) ABG pH (7.35-7.45) ABG pCO2 69 H (35-45) mmHg ABG pO2 68 L (83-108) mmHg ABG HCO3 40 H* (21-25) mmol/L ABG Total CO2 42 H (19-24) mmol/L ABG O2 Saturation (94-97) % Sodium (137-145) mmol/L Chloride (98-107) mmol/L Carbon Dioxide (22-30) mmol/L Creatinine (0.66-1.25) mg/dL Glucose (74-99) mg/dL POC Glucose (mg/dL) 140 H (75-99) mg/dL Total Protein (6.3-8.2) g/dL Albumin (3.5-5.0) g/dL Ur Specific [place] (1.001-1.035) Urine Protein (Negative) Amorphous Sediment (None) /hpf Urine Bacteria (None) /hpf Urine Mucus (None) /hpf 02/16/18 02/16/18 02/16/18 Range/Units 04:16 04:16 04:16 RBC 3.86 L (4.30-5.90) m/uL Hgb 12.6 L (13.0-17.5) gm/dL Hct 38.1 L (39.0-53.0) % Lymphocytes # 0.6 L (1.0-4.8) k/uL PT 20.5 H (9.0-12.0) sec INR 2.3 H (<1.2) ABG pH (7.35-7.45) ABG pCO2 (35-45) mmHg ABG pO2 (83-108) mmHg ABG HCO3 (21-25) mmol/L ABG Total CO2 (19-24) mmol/L ABG O2 Saturation (94-97) % Sodium 135 L (137-145) mmol/L Chloride 90 L (98-107) mmol/L Carbon Dioxide 37 H (22-30) mmol/L Creatinine 0.50 L (0.66-1.25) mg/dL Glucose 149 H (74-99) mg/dL POC Glucose (mg/dL) (75-99) mg/dL Total Protein 5.7 L (6.3-8.2) g/dL Albumin 3.2 L (3.5-5.0) g/dL Ur Specific [place] (1.001-1.035) Urine Protein (Negative) Amorphous Sediment (None) /hpf Urine Bacteria (None) /hpf Urine Mucus (None) /hpf 02/16/18 02/16/18 02/16/18 Range/Units 04:20 04:59 06:18 RBC (4.30-5.90) m/uL Hgb (13.0-17.5) gm/dL Hct (39.0-53.0) % Lymphocytes # (1.0-4.8) k/uL PT (9.0-12.0) sec INR (<1.2) ABG pH 7.46 H (7.35-7.45) ABG pCO2 60 H (35-45) mmHg ABG pO2 (83-108) mmHg ABG HCO3 42 H* (21-25) mmol/L ABG Total CO2 44 H (19-24) mmol/L ABG O2 Saturation 98.3 H (94-97) % Sodium (137-145) mmol/L Chloride (98-107) mmol/L Carbon Dioxide (22-30) mmol/L Creatinine (0.66-1.25) mg/dL Glucose (74-99) mg/dL POC Glucose (mg/dL) 149 H (75-99) mg/dL Total Protein (6.3-8.2) g/dL Albumin (3.5-5.0) g/dL Ur Specific [place] 1.047 H (1.001-1.035) Urine Protein Trace H (Negative) Amorphous Sediment Rare H (None) /hpf Urine Bacteria Rare H (None) /hpf Urine Mucus Occasional H (None) /hpf Microbiology - Last 24 Hours (Table) 02/15/18 04:20 Urine Culture - Preliminary Urine,Catheterized 02/15/18 21:20 Sputum Culture - Preliminary Sputum Assessment and Plan Plan: assessment 1 acute hypoxic/hypercapnic respiratory failure likely on the basis of COPD. The patient is an acute COPD exacerbation. Computed tomography scan of the chest was done and there is no evidence of pneumonia. There is some chronic scarring in lung apices bilaterally. Peak airway pressures improved although still high and the patient is still broken spastic and wheezy. We'll continue treatment with a combination of bronchodilators and steroids for another 24 hours. Not ready for weaning at this point in time. Cut down the Lasix to 20 mg once a day. Continue bronchi dilators. Continue antibiotics. Continue steroids. 2 advanced end-stage COPD 3 chronic hypoxic respiratory failure secondary to COPD 4 chronic atrial fibrillation 5TIA, history of 6 dementia 7 hypertension 8 hyperlipidemia 9 BPH 10 osteoarthritis Plan Drop the Lasix to 20 mg IV every 24 hours. Initiate tube feeds. Monitor PT/ INR. Continue bronchodilators. Continue steroids. Not ready for weaning. Sedation holiday in a.m. Will proceed accordingly. We will assess the readiness for weaning tomorrow and if it we will give the patient is point is breathing trial. Discussed the case with the family. Updated them on the condition. We'll continue to follow.
[2018-02-16] MEDS: CHLORHEXIDINE GLUCONATE 15 ML CUP MUCOUS MEM SCH ×2 (11:47→20:44)
[2018-02-16 11:58] LABS: Glucose,Whole Blood 147 mg/dL (75-99)
[2018-02-16] MEDS: FOLIC ACID 1 MG TAB PO SCH (12:00)
[2018-02-16] MEDS: THIAMINE 100 MG TAB PO SCH (12:00)
[2018-02-16] MEDS: EMPTY BAG 1 BAG with PROPOFOL 1,000 MG IV SCH (12:06)
[2018-02-16 12:26] LABS: Hemoglobin A1C 5.6 % (4.0-6.0)
--- NOTE | 2018-02-16 13:00 | ECHOF ---
Referral Reason:a fib, cor pulmonale MEASUREMENTS -------- HEIGHT: 182.9 cm WEIGHT: 98.9 kg BP: IVSd: 1.2 cm (0.6 - 1.1) LVIDd: 3.7 cm (3.9 - 5.3) LVPWd: 1.0 cm (0.6 - 1.1) EDV(Teich): 59 ml IVSs: 1.4 cm LVIDs: 2.8 cm LVPWs: 1.3 cm %IVS Thck: 14 % ESV(Teich): 29 ml EF(Teich): 51 % %FS: 26 % SV(Teich): 30 ml LA Diam: 4.0 cm (2.7 - 3.8) RVIDd: 3.5 cm (< 3.3) Ao Diam: 3.0 cm (2.0 - 3.7) LA Diam: 3.8 cm (2.7 - 3.8) AV Cusp: 1.9 cm (1.5 - 2.6) EPSS: 0.5 cm MV E Thomas: 0.86 m/s MV DecT: 195 ms MV Dec Blanco: 4.4 m/s MV A Thomas: 0.28 m/s MV E/A Ratio: 3.06 MV PHT: 57 ms TR Vmax: 2.58 m/s TR maxP.53 mmHg RAP: 5.00 mmHg RVSP: 31.53 mmHg MV EF SLOPE: 116.33 mm/s (70 - 150) MV EXCURSION: 19.98 mm (> 18.000) FINDINGS -------- Undetermined rhythm. This was a technically adequate study. LV size, wall thickness and systolic function are normal, with an EF greater than 55%. The left anita tricular size is normal. The right ventricle is mild to moderately enlarged. The left atrial size is normal. The right atrial size is normal. The aortic valve is trileaflet, and appears structurally normal. No aortic stenosis or regurgitation. Mild mitral annular calcification present. Mild mitral regurgitation is present. Mild tricuspid regurgitation present. There is no evidence of pulmonary hypertension. The right v entricular systolic pressure, as measured by Doppler, is 31.53mmHg. The pulmonic valve was not well visualized. The aortic root size is normal. There is no pericardial effusion. CONCLUSIONS -------- 1. LV size, wall thickness and systolic function are normal, with an EF greater than 55%. 2. The left ventricular size is normal. 3. The right ventricle is mild to moderately enlarged. 4. The right atrial size is normal. 5. The aortic valve is trileaflet, and appears structurally normal. No aortic stenosis or regurgitati on. 6. Mild mitral annular calcification present. 7. Mild mitral regurgitation is present. 8. Mild tricuspid regurgitation present. 9. There is no evidence of pulmonary hypertension. 10. The right ventricular systolic pressure, as measured by Doppler, is 31.53mmHg. 11. The pulmonic valve was not well visualized. 12. The aortic root size is normal. 13. There is no pericardial effusion. SUPERVISORY HISTORIAN: Lucille Narvaez RDCS
--- NOTE | 2018-02-16 13:07 | PN ---
PROGRESS NOTE He was seen again on 02/16/2018. He has been hemodynamically stable, not requiring any pressors. He is sedated on the vent. He is initially apneic on transient CPAP. Subsequently has low tidal volume spontaneous at about 150 to 200. He has remained afebrile overnight. He has been in negative fluid balance. PHYSICAL EXAMINATION: On physical examination, his blood pressure is 111/64, respiratory rate 20, pulse rate of 96, temperature 98.3, O2 saturation on 50% FiO2 is 98%. HEENT reveals ET tube in place. CHEST: With decreased breath sounds with prolonged expiration. There is expiratory wheeze. Cardiovascular system reveals an S1, S2. Abdomen is soft. There is trace to 1+ pedal edema. White count is 5.8, hemoglobin 12.6. PT, INR of 2.3. ABG showed a pH of 7.46, pCO2 of 60, pO2 of 90, bicarb of 42, FiO2 50%, O2 saturation of 98.3. Sodium 135, potassium 4.4, chloride 90, bicarb 37, BUN 16, creatinine of 0.5, albumin of 3.2, total protein 5.7. Chest x-ray shows no clear infiltrate. CT scan of the chest showed no evidence of pulmonary embolus. Echocardiogram is pending. IMPRESSION AT THIS TIME: 1. Acute on chronic respiratory failure secondary to asthma with chronic obstructive pulmonary disease with acute exacerbation. 2. Baseline interstitial fibrosis. 3. Atrial fibrillation. Patient anticoagulated on Coumadin. 4. Cannot rule out a secondary bacterial infection. Keep the patient in negative fluid balance. Optimize inflammatory status for airways with IV and aerosolized steroids along with montelukast. Start tube feeding today if tolerated. Recommend orogastric tube to decrease the chance of bleeding. Would do a sedation holiday as well as spontaneous breathing trial tomorrow. Depending on how he does we should make further changes to his care. I did camp counselor the patient's family regarding his condition. MMODL / IJN: [id number] /
--- NOTE | 2018-02-16 16:04 | PN ---
PROGRESS NOTE DATE OF SERVICE: 02/16/2018 This 82-year-old gentleman who was admitted with COPD exacerbation as well as pneumonia with respiratory failure and possible sepsis, he is on mechanical ventilation. Pulmonary and Critical Care is following the patient closely. The patient is mechanically ventilated and sedated at this time. PAST MEDICAL HISTORY: Reviewed. REVIEW OF SYSTEMS: Could not be taken, the patient mechanically ventilated and sedated. MEDICATIONS: Current medications are reviewed and include: 1. DuoNeb q.i.d. and p.r.n. 2. Tenormin 50 mg p.o. at bedtime. 3. Zithromax 500 mg daily. 4. Pulmicort 0.5 b.i.d. 5. Rocephin 1 gram daily. 6. Peridex. 7. Folic acid 1 mg daily. 8. Lasix 20 IV daily. 9. NovoLog scale. 10.Namenda 10 mg daily. 11.Solu-Medrol 60 IV q.6. 12.Singulair 10 mg at bedtime. 13.Narcan 0.2 q.2 p.r.n. 14.Protonix 40 mg daily. 15.Thiamine 100 mg daily. 16.Coumadin 2.5 mg and 5 mg on Sunday. PHYSICAL EXAMINATION: Patient is alert and oriented x3. Pulse 88, blood pressure 111/64, respiration 24, temperature normal, pulse ox 98% on 50% mechanical ventilation, setting are noted. HEENT: Conjunctivae normal. Oral mucosa moist. Neck is no jugular venous distention. No carotid bruit. No lymph node enlargement. CARDIOVASCULAR: S1, S2 muffled. RESPIRATORY: Breath sounds diminished at the bases. A few scattered rhonchi. No crackles. ABDOMEN: Soft, nontender. No mass palpable. LEGS: No edema. NERVOUS SYSTEM: The patient is sedated. SKIN: No ulcer, rash or bleeding. LABS: WBC 5.8, hemoglobin 12.6. INR 2.3. Sodium 135. Other labs are noted. ASSESSMENT: 1. Chronic obstructive pulmonary disease acute exacerbation with bilateral pneumonia possibly gram-negative with acute hypoxic hypercarbic respiratory failure on mechanical ventilation. 2. History of atrial fibrillation. 3. Chronic obstructive pulmonary disease. 4. History of cerebrovascular accident, transient ischemic attack. 5. Coumadin monitoring. 6. Degenerative joint disease. 7. History of benign prostatic hypertrophy. 8. History of hypoxic respiratory failure. 9. History of chronic atrial fibrillation. 10.History of ASD and surgical repair. 11.History of herpes zoster. 12.History of dementia. 13.Remote history of nicotine dependence. RECOMMENDATION AND DISCUSSION: Recommend to continue current medication. Continue with monitoring and symptomatic treatment. 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 I would also check mycoplasma antibodies and Legionella antigen also. Otherwise continue to monitor. Further recommendations to follow. See orders for details. MMODL / IJN: [id number] /
[2018-02-16] MEDS: AZITHROMYCIN 500 MG in DEXTROSE 5% IN WATER 250 ML IVPB SCH ×2 (16:08)
[2018-02-16] MEDS: cefTRIAXone IN SWFI 1,000 MG/10 ML SYRINGE IVP SCH (18:16)
[2018-02-16] MEDS: WARFARIN 2.5 MG TAB PO SCH (18:16)
[2018-02-16 18:39] LABS: Glucose,Whole Blood 184 mg/dL (75-99)
[2018-02-16] MEDS: MONTELUKAST 10 MG TAB PO SCH (20:44)
[2018-02-16] MEDS: ATENOLOL 50 MG TAB PO SCH (20:44)
--- NOTE | 2018-02-16 23:19 | CONS ---
CONSULTATION Mr. Fountain is an 82-year-old gentleman who is seen for cardiac evaluation, currently is intubated and the history is mostly obtained from the patient's as well as the patient's chart. The patient's medical records reviewed. This patient has a known history of advanced COPD, is home oxygen dependent. 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 He was sent to the emergency room. In the emergency room, patient was initially treated with 100% nonrebreather mask, but patient's mentation got worse and subsequently the patient was intubated. Patient since then has remained stable. Patient has a history of chronic atrial fibrillation. The patient has been on Coumadin. The patient has a past history of AICD . There is no definite previous history of myocardial infarction. The patient has a history of a CVA, COPD, atrial septal defect repair, hypertension, hyperlipidemia, previous history of herpes zoster and dementia. The patient has also had a history of previous cardiac catheterization. HOME MEDICATIONS: Include: 1. Tenormin 50 mg daily. 2. Singulair. 3. Coumadin. 4. Lasix 40 mg daily. 5. Folic acid. PHYSICAL EXAMINATION: At present reveal the patient's blood pressure to be 120/81 mmHg, heart rate is 75 per minute. HEENT is negative. Neck is supple. There is no increase in jugular venous pressure. Both the carotid pulses are felt. There is no bruit. Chest is symmetrical. HEART: The PMI is not felt. First and second heart sounds are normal. There is no evidence of any murmur. Lungs reveal bilateral diminished air entry. Abdomen is soft. EXTREMITIES: There is trace leg edema. The patient's hemoglobin is 12.6. Arterial blood gases were pH of 7.46, pCO2 86 and PO2 is 90. Electrolytes are normal. Patient's creatinine is 0.50. Initial troponin was 0.012. The patient's proBNP level is 1940. Chest x-ray showed bilateral fibrotic changes in the . CT scan did not show any evidence of pulmonary embolism. FINAL IMPRESSION: This patient is admitted with acute hypoxic respiratory failure secondary to chronic chronic obstructive pulmonary disease. The patient has a mildly elevated troponin which could be secondary to chronic obstructive pulmonary disease and cor pulmonale. There is no evidence of any significant heart failure. Patient's echocardiogram reveals overall normal left ventricular systolic function. We will continue the current treatment. MMCEDL / IJN: [id number] /
[2018-02-16 23:42] LABS: Glucose,Whole Blood 162 mg/dL (75-99)
[2018-02-17 04:00] LABS: Basophils % (A) 0 %; Eosinophils % (A) 1 %; HCT 38.7 % (39.0-53.0); Lymphocytes # (A) 0.3 k/uL (1.0-4.8); Lymphocytes % (A) 7 %; MCH 32.6 pg (25.0-35.0); MCHC 33.5 g/dL (31.0-37.0); MCV 97.3 fL (80.0-100.0); Mean Platelet Volume 8.7; Monocytes # (A) 0.3 k/uL (0-1.0); Monocytes % (A) 5 %; Neutrophils # (A) 4.3 k/uL (1.3-7.7); Neutrophils % (A) 87 %; RBC 3.98 m/uL (4.30-5.90); RDW 14.4 % (11.5-15.5); WBC 4.9 k/uL (3.8-10.6)
[2018-02-17 04:08] LABS: Calcium 8.7 mg/dL (8.4-10.2); Chloride 90 mmol/L (98-107); Glucose 157 mg/dL (74-99); Sodium 134 mmol/L (137-145); Total Bilirubin 0.5 mg/dL (0.2-1.3)
[2018-02-17 04:14] LABS: Anion Gap 5 mmol/L
[2018-02-17 04:17] LABS: ALT 27 U/L (21-72); AST 42 U/L (17-59); Alkaline Phosphatase 32 U/L (38-126); Blood Urea Nitrogen 23 mg/dL (9-20); Carbon Dioxide 39 mmol/L (22-30); Potassium 4.8 mmol/L (3.5-5.1)
[2018-02-17 04:18] LABS: Albumin 3.2 g/dL (3.5-5.0); Magnesium 2.3 mg/dL (1.6-2.3); Phosphorus 4.4 mg/dL (2.5-4.5); Total Protein 5.8 g/dL (6.3-8.2)
[2018-02-17 04:56] LABS: INR 1.8 (<1.2); Partial Thromboplastin Time 25.8 sec (22.0-30.0); Prothrombin Time 16.6 sec (9.0-12.0)
[2018-02-17 05:38] LABS: ABG PCO2 60 mmHg (35-45); ABG PH 7.45 (7.35-7.45); ABG PO2 137 mmHg (83-108)
[2018-02-17 05:41] LABS: ABG HCO3 42 mmol/L (21-25)
[2018-02-17 05:51] LABS: Mean Platelet Volume 8.5; Platelet Count 160 k/uL (150-450)
[2018-02-17 06:00] LABS: Glucose,Whole Blood 170 mg/dL (75-99)
[2018-02-17] MEDS: methylPREDNISolone SOD SUCCI 125 MG/2 ML VIAL IV SCH ×3 (06:12→18:13)
[2018-02-17] MEDS: INSULIN ASPART 100 UNIT/ML 1 ML 10 ML VIAL SQ SCH ×4 (06:12→21:38)
--- NOTE | 2018-02-17 06:56 | XR ---
EXAMINATION TYPE: XR chest 1V portable DATE OF EXAM: 02/17/2018 HISTORY: tube placement. REFERENCE: Previous study dated 02/16/2018. FINDINGS: The lungs are overinflated. Heart size upper limits of normal. There is patchy, bilateral a irspace disease similar in appearance to the previous study. Pleural spaces are clear. IMPRESSION: 1. COPD. 2. PATCHY, BILATERAL AIRSPACE DISEASE.
[2018-02-17] MEDS: BUDESONIDE 0.5 MG/2 ML NEBU INHALATION SCH ×2 (07:56→20:30)
[2018-02-17] MEDS: IPRATROPIUM-ALBUTEROL 3 ML NEB INHALATION SCH ×4 (07:56→20:30)
[2018-02-17] MEDS: PROPOFOL 1,000 MG in EMPTY BAG 1 BAG IV SCH (08:07)
[2018-02-17] MEDS: CHLORHEXIDINE GLUCONATE 15 ML CUP MUCOUS MEM SCH (08:10)
[2018-02-17] MEDS: FUROSEMIDE 10 MG/ML 2 ML VIAL IV SCH (08:10)
[2018-02-17] MEDS: PANTOPRAZOLE 40 MG/10 ML VIAL IVP SCH (08:11)
[2018-02-17] MEDS: MEMANTINE 10 MG TAB PO SCH (08:11)
[2018-02-17 12:19] LABS: Glucose,Whole Blood 134 mg/dL (75-99)
--- NOTE | 2018-02-17 13:51 | P.PN ---
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 The patient was found to be quite hypoxic with pulse ox of 70%. The patient was experiencing progressive increase in dyspnea and he was found to be desaturating in terms of his oxygenation. At the time of his arrival to the emergency department at [facility] the patient had a pulse ox of 70% on room air. His stated that he had no fever and no chills. He had no significant cough. He denied having any chest pain. No nausea. No vomiting. No abdominal pain. He has chronic peripheral edema that was slightly worse than the usual. He was recently [place] and he was being evaluated by Dr. Keith regarding memory problems and dementia. He is a full code. At a time of arrival to the burst department, the patient was found to be severely hypoxic, initially was placed on 100% nonrebreather facemask. Ultimately his mentation got worse and the patient had to be intubated and placed on a mechanical ventilator. Following intubation, the patient was transferred to [facility] for further evaluation. Chest x-ray showed increased interstitial markings in the upper lobes bilaterally more so in the lung apices. No significant orotracheal secretions. He is currently hemodynamically stable on no pressors. He is sedated with benzodiazepines that was given to him in the emergency department. At this point in time, the patient assist-control mode of ventilation at the rate of 20, tidal volume was at 550 which I dropped down to 450 and his FiO2 is at 40%. Blood gases showed a pH of 7.37 with a pCO2 of 69 and a pO2 of 68. No significant leukocytosis. He has chronic atrial fibrillation. His articulation with warfarin. His PT/ INR was likely therapeutic at 2.0. On 02/16/2018, I'm seeing this patient for a follow-up. The patient is sedated on a mechanical ventilator. He is on a tidal volume of 450 with a rate of 20 and FiO2 of 40% and a PEEP of 5. Blood gases show some degree of alkalosis with a pH of 7.47 with a pCO2 of 60 and pO2 of 90. Airway pressures peak is at 32 with metastatic of 17. Still bronchospastic and wheezy. CAT scan of the chest was done and showed chronic fibrotic changes in the upper lobes bilaterally and some scarring. No evidence of any pneumonia. No evidence of any atelectasis or failure. Patient is also being diuresis with IV Lasix. He is receiving 20 mg of IV Lasix every 12 hours. He is in a negative fluid balance of 1.5 L since he came to the ICU. He is still in atrial fibrillation. INR therapeutic at 2.3. White cell count is not elevated. He remains and accommodation of bronchodilators and steroids. He is also on empiric antibiotic coverage. We'll initiate tube feeds. On 02/17/2018 the patient is being seen in follow-up. This morning it was on a mechanical ventilator on assist control mode and the vent settings have been essentially the same. Nevertheless the patient's airway pressures improved and the peak air pressures down to 27 and the morning blood gases showed a pH of 7.4 with a pCO2 of 60 and pO2 137. Chest x-ray shows no acute abnormalities. The patient is afebrile. The patient is hemodynamically stable. Based on all this, the patient was taken off sedation. Following that weaning parameters were checked and the patient was given a brace point is breathing trial with a pressure support of 5 and PEEP of 5. Following that, extubated this patient to a BiPAP pressure of 10/5 cm of water. He is currently awake and alert. He is utilizing the BiPAP without any major difficulties. He is moving all 4 extremities without any limitation. He states that the BiPAP as been helping him breathe. He is pulse oxing 97% while being on BiPAP at an FiO2 of 40%. He is on accommodation bronchodilators and steroids for now. He is also on broad- spectrum antibiotics. PT/INR is subtherapeutic at 1.8. His underlying cardiac rhythm is atrial fibrillation. There is a chronic problem. Objective - Vital Signs Vital signs: Vital Signs Temp 98.2 F 02/17/18 12:00 Pulse 78 02/17/18 13:00 Resp 23 02/17/18 13:00 BP 131/78 02/17/18 13:00 Pulse Ox 97 02/17/18 13:00 Intake & Output 02/16/18 02/17/18 02/17/18 18:59 06:59 18:59 Intake Total 44741.45 884.55 119.758 Output Total 1267 975 686 Balance 05287.45 -90.45 -566.242 Weight 99.2 kg 89 [place]: [place] [address] 240 20 0.9 KVO 52214 240 20 Azithromycin 500 mg In 250 Dextrose 5% in Water 250 ml @ 125 mls/hr IVPB Q24H AUDREY Rx#:[id number] Magnesium Sulfate-D5w Pmx 100 1 gm In Dextrose/Water 1 100ml.bag @ 100 mls/hr IVPB Q1H AUDREY Rx#: [id number] Intake, IV Titration 165.45 34.55 19.758 Amount Propofol 1,000 mg In 165.45 34.55 19.758 Empty Bag 1 bag @ Titrate IV .Q0M AUDREY Rx#: [id number] Tube Feeding 95 520 80 Other 90 90 Output: Gastric Drainage 350 Urine 917 975 686 Other: Voiding Method Indwelling Catheter Indwelling Catheter Indwelling Catheter - Exam Gen. appearance the patient is extubated on a BiPAP at a full face mask and the patient is very much synchronous with a mechanical ventilator. Head exam was generally normal. There was no scleral icterus or corneal arcus. Mucous membranes were moist. Neck was supple and without jugular venous distension, thyromegaly, or carotid bruits. Carotids were easily palpable bilaterally. Lungs sounds are diminished bilaterally and there is prolongation of expiratory phase of breathing and scattered expiratory wheezes throughout the lung page. Heart sounds are irregular, positive S1-S2 and there is no significant murmurs appreciated. Abdominal exam revealed normal bowel sounds. The abdomen was soft, non-tender, and without masses, organomegaly, or appreciable enlargement of the abdominal aorta. Examination of the extremities revealed easily palpable radial, femoral and pedal pulses. There was no cyanosis, clubbing or edema. Examination of the skin revealed no evidence of significant rashes, suspicious appearing nevi or other concerning lesions. Neurologically the patient awake following commands and answering simple questions. Moving all 4 extremities. - Labs CBC & Chem 7: 02/17/18 05:20 02/17/18 03:23 Labs: Abnormal Lab Results - Last 24 Hours (Table) 02/16/18 02/16/18 02/17/18 Range/Units 18:22 23:41 03:23 RBC (4.30-5.90) m/uL Hct (39.0-53.0) % Lymphocytes # (1.0-4.8) k/uL PT (9.0-12.0) sec INR (<1.2) ABG pCO2 (35-45) mmHg ABG pO2 (83-108) mmHg ABG HCO3 (21-25) mmol/L ABG O2 Saturation (94-97) % Sodium 134 L (137-145) mmol/L Chloride 90 L (98-107) mmol/L Carbon Dioxide 39 H (22-30) mmol/L BUN 23 H (9-20) mg/dL Creatinine 0.58 L (0.66-1.25) mg/dL Glucose 157 H (74-99) mg/dL POC Glucose (mg/dL) 184 H 162 H (75-99) mg/dL Alkaline Phosphatase 32 L (38-126) U/L Total Protein 5.8 L (6.3-8.2) g/dL Albumin 3.2 L (3.5-5.0) g/dL 02/17/18 02/17/18 02/17/18 Range/Units 03:23 04:35 05:10 RBC 3.98 L (4.30-5.90) m/uL Hct 38.7 L (39.0-53.0) % Lymphocytes # 0.3 L (1.0-4.8) k/uL PT 16.6 H (9.0-12.0) sec INR 1.8 H (<1.2) ABG pCO2 60 H (35-45) mmHg ABG pO2 137 H (83-108) mmHg ABG HCO3 42 H* (21-25) mmol/L ABG O2 Saturation 99.0 H (94-97) % Sodium (137-145) mmol/L Chloride (98-107) mmol/L Carbon Dioxide (22-30) mmol/L BUN (9-20) mg/dL Creatinine (0.66-1.25) mg/dL Glucose (74-99) mg/dL POC Glucose (mg/dL) (75-99) mg/dL Alkaline Phosphatase (38-126) U/L Total Protein (6.3-8.2) g/dL Albumin (3.5-5.0) g/dL 02/17/18 02/17/18 Range/Units 05:59 12:17 RBC (4.30-5.90) m/uL Hct (39.0-53.0) % Lymphocytes # (1.0-4.8) k/uL PT (9.0-12.0) sec INR (<1.2) ABG pCO2 (35-45) mmHg ABG pO2 (83-108) mmHg ABG HCO3 (21-25) mmol/L ABG O2 Saturation (94-97) % Sodium (137-145) mmol/L Chloride (98-107) mmol/L Carbon Dioxide (22-30) mmol/L BUN (9-20) mg/dL Creatinine (0.66-1.25) mg/dL Glucose (74-99) mg/dL POC Glucose (mg/dL) 170 H 134 H (75-99) mg/dL Alkaline Phosphatase (38-126) U/L Total Protein (6.3-8.2) g/dL Albumin (3.5-5.0) g/dL Microbiology - Last 24 Hours (Table) 02/15/18 18:57 Blood Culture - Preliminary Blood No Growth after 24 hours 02/15/18 21:20 Gram Stain - Preliminary Sputum Sputum Culture - Preliminary 02/15/18 04:20 Urine Culture - Preliminary Urine,Catheterized Assessment and Plan Plan: assessment 1 acute hypoxic/hypercapnic respiratory failure likely on the basis of COPD. The patient is an acute COPD exacerbation. Computed tomography scan of the chest was done and there is no evidence of pneumonia. There is some chronic scarring in lung apices bilaterally. The patient was treated with accommodation bronchodilators, steroids and antibiotics. The patient was subsequently weaned off and extubated to a BiPAP at a pressure of 12/5 cm of water and FiO2 of 40%. Currently he is calm and comfortable. The follow-up blood gases is to be done at a later stage. Continue bronchodilators. Continue steroids. Chest x-ray was reviewed. 2 advanced end-stage COPD 3 chronic hypoxic respiratory failure secondary to COPD 4 chronic atrial fibrillation 5TIA, history of 6 dementia 7 hypertension 8 hyperlipidemia 9 BPH 10 osteoarthritis Plan Continue monitoring this patient's pulmonary status very closely in the ICU. The patient has been extubated to BiPAP. Continue bronchodilators. Continue steroids. Continue antibiotics. Monitor mental status. Obtain a blood gas later stage to reevaluate acid base status. Continue articulation with warfarin and patient's INR today is 1.8. We'll give the patient ICU for another 24 hour monitoring. Further recommendations to follow based on his progress. There is a critically care evaluation, 35 minutes including the weaning process was done in the intensive care unit and discussions with the family. Time with Patient: Greater than 30
--- NOTE | 2018-02-17 16:14 | PN ---
PROGRESS NOTE DATE OF SERVICE: 02/17/2018 This 82-year-old gentleman who was admitted with COPD exacerbation and bilateral pneumonia also had hypoxic hypercarbic respiratory failure. The patient was extubated today. Patient has been closely monitored. The most recent chest x-ray which was reviewed showed patchy bilateral airspace disease and Cardiology is also following the patient closely as well as pulmonary. PAST MEDICAL HISTORY: Reviewed. REVIEW OF SYSTEM: CARDIOVASCULAR: As mentioned. RESPIRATORY: As mentioned earlier. GI: No nausea. : No dysuria or retention. CURRENT MEDICATIONS: Reviewed and include: 1. DuoNeb q.i.d. 2. Tenormin 50 mg q.h.s. 3. Zithromax 500 mg daily. 4. Pulmicort 0.5 b.i.d. 5. Rocephin 1 g daily. 6. Folic acid 1 mg daily. 7. Lasix 20 mg daily. 8. Namenda 10 mg daily. 9. Solu-Medrol 60 IV q.6h. 10.Magnesium. 11.Singulair. 12.Protonix 40 mg. 13.Vitamin B 100 mg. 14.Coumadin 2.5 mg p.o. Sunday, Sunday, Sunday, , Sunday, Sunday and Coumadin 5 mg p.o. Sunday. PHYSICAL EXAM: Patient is alert, oriented x3. Pulse 84, blood pressure 106/60, respiration 27, temperature 98.2, pulse ox 97% on BiPAP on 40% FiO2. HEENT: Conjunctivae normal. Oral mucosa moist. NECK: No jugular venous distention. No carotid bruit. No enlarged lymph node. CARDIOVASCULAR: S1, S2. RESPIRATORY: Breath sounds diminished in the bases. Bilateral scattered rhonchi and crackles. ABDOMEN: Soft, nontender. LEGS: No edema. NERVOUS SYSTEM: No focal deficits. LABS: At this time shows the INR is 1.8, ABGs noted. WBC 4.2, hemoglobin 13. Cultures are negative so far. ASSESSMENT: 1. Chronic obstructive pulmonary disease acute exacerbation with bilateral pneumonia possibly gram-negative with acute hypoxic hypercarbic respiratory failure status post mechanical ventilation on BiPAP currently. 2. History of atrial fibrillation. 3. Chronic obstructive pulmonary disease. 4. History of cerebrovascular accident, transient ischemic attack. 5. Coumadin monitoring. 6. History of benign prostatic hypertrophy. 7. History of chronic hypoxic respiratory failure. 8. History of chronic atrial fibrillation. 9. History of AICD and surgical repair. 10.History of herpes zoster. 11.History of dementia. 12.Remote history of nicotine dependence. RECOMMENDATIONS AND DISCUSSION: I recommend to continue current management, continue with monitoring and symptomatic treatment. We will monitor the patient closely. Otherwise I would recommend continue the broad-spectrum IV antibiotics, bronchodilators, steroids, monitor blood sugars closely. DVT prophylaxis. Continue the BiPAP. Closely follow with multiple consultants. Cardiology input appreciated. Further recommendations to follow. MMODL / IJN: [id number] /
[2018-02-17 17:07] LABS: Glucose,Whole Blood 136 mg/dL (75-99)
[2018-02-17] MEDS: THIAMINE 100 MG TAB PO SCH (17:22)
[2018-02-17] MEDS: FOLIC ACID 1 MG TAB PO SCH (17:22)
[2018-02-17] MEDS: AZITHROMYCIN 500 MG in DEXTROSE 5% IN WATER 250 ML IVPB SCH ×2 (17:22)
[2018-02-17] MEDS ORDERED: WARFARIN 5 MG TAB PO SCH (18:00)
[2018-02-17] MEDS: cefTRIAXone IN SWFI 1,000 MG/10 ML SYRINGE IVP SCH (18:13)
--- NOTE | 2018-02-17 18:35 | PN ---
PROGRESS NOTE He was seen on February 17, 2018. He has been hemodynamically stable. This morning he was extubated and had to be immediately placed on BiPAP. He is awake on BiPAP. He has mild shortness of breath. On physical examination: his respiratory rate is 19, pulse rate of 89, blood pressure 112/61. HEENT reveals pupils that are equal. Chest reveals decreased breath sounds. Prolonged expiration. Faint wheeze on forced expiration. Cardiovascular system reveals a S1, S2. Abdomen is soft. There is trace pedal edema. Labs reveal an ABG with pH of 7.45, pCO2 of 60, PO2 of 137, bicarb 42, O2 saturation of 99%. IMPRESSION: At this time: 1. Severe chronic obstructive pulmonary disease with asthma with acute exacerbation. 2. Acute on chronic respiratory failure. 3. Interstitial fibrosis. 4. Cor pulmonale. 5. Atrial fibrillation. At this point in time optimize his fluid status. Continue him on IV steroids and bronchodilators. Continue BiPAP. He may need to be reintubated if he worsens. He and his family were counseled regarding his condition and this approach and has a fair understanding of our recommendations. MMODL / IJN: [id number] /
[2018-02-17] MEDS: MONTELUKAST 10 MG TAB PO SCH (21:22)
[2018-02-17] MEDS: ATENOLOL 50 MG TAB PO SCH (21:22)
[2018-02-17 21:47] LABS: Glucose,Whole Blood 182 mg/dL (75-99)
[2018-02-18] MEDS: methylPREDNISolone SOD SUCCI 125 MG/2 ML VIAL IV SCH ×3 (00:49→12:51)
[2018-02-18 05:37] LABS: Basophils % (A) 0 %; Eosinophils % (A) 0 %; HCT 39.4 % (39.0-53.0); HGB 12.9 gm/dL (13.0-17.5); Lymphocytes # (A) 0.4 k/uL (1.0-4.8); Lymphocytes % (A) 5 %; MCH 32.3 pg (25.0-35.0); MCHC 32.9 g/dL (31.0-37.0); MCV 98.3 fL (80.0-100.0); Mean Platelet Volume 8.1; Monocytes # (A) 0.4 k/uL (0-1.0); Monocytes % (A) 5 %; Neutrophils # (A) 7.1 k/uL (1.3-7.7); Neutrophils % (A) 90 %; Platelet Count 179 k/uL (150-450); RDW 14.6 % (11.5-15.5); WBC 7.9 k/uL (3.8-10.6)
[2018-02-18 06:02] LABS: Anion Gap 7 mmol/L; Blood Urea Nitrogen 24 mg/dL (9-20); Calcium 8.8 mg/dL (8.4-10.2); Carbon Dioxide 35 mmol/L (22-30); Chloride 94 mmol/L (98-107); Glucose 134 mg/dL (74-99); Magnesium 2.4 mg/dL (1.6-2.3); Phosphorus 4.6 mg/dL (2.5-4.5); Sodium 136 mmol/L (137-145)
[2018-02-18 07:02] LABS: Glucose,Whole Blood 129 mg/dL (75-99)
--- NOTE | 2018-02-18 07:09 | XR ---
EXAMINATION TYPE: XR chest 1V portable DATE OF EXAM: 02/18/2018 COMPARISON: 02/17/2018 HISTORY: Extubation. Continued follow-up for shortness of breath. TECHNIQUE: Single frontal view of the chest is obtained. FINDINGS: The patient should obscures the lung apices. New haziness over the hemidiaphragms, right g reater than left, is seen in combination with pulmonary per inflation and biapical lucency representi ng underlying COPD. Cardiac silhouette is mildly enlarged. Generalized osseous demineralization is se en. Enteric and endotracheal tubes have been removed. IMPRESSION: Removal of the endotracheal and enteric tubes with new bibasilar airspace disease partia lly silhouetting the hemidiaphragms favored to represent atelectasis.
[2018-02-18] MEDS: IPRATROPIUM-ALBUTEROL 3 ML NEB INHALATION SCH ×4 (08:13→19:55)
[2018-02-18] MEDS: BUDESONIDE 0.5 MG/2 ML NEBU INHALATION SCH ×2 (08:13→19:55)
[2018-02-18 08:39] LABS: Prothrombin Time 18.3 sec (9.0-12.0)
--- NOTE | 2018-02-18 08:55 | P.PN ---
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 The patient was found to be quite hypoxic with pulse ox of 70%. The patient was experiencing progressive increase in dyspnea and he was found to be desaturating in terms of his oxygenation. At the time of his arrival to the emergency department at [facility] the patient had a pulse ox of 70% on room air. His stated that he had no fever and no chills. He had no significant cough. He denied having any chest pain. No nausea. No vomiting. No abdominal pain. He has chronic peripheral edema that was slightly worse than the usual. He was recently [place] and he was being evaluated by Dr. Keith regarding memory problems and dementia. He is a full code. At a time of arrival to the burst department, the patient was found to be severely hypoxic, initially was placed on 100% nonrebreather facemask. Ultimately his mentation got worse and the patient had to be intubated and placed on a mechanical ventilator. Following intubation, the patient was transferred to [facility] for further evaluation. Chest x-ray showed increased interstitial markings in the upper lobes bilaterally more so in the lung apices. No significant orotracheal secretions. He is currently hemodynamically stable on no pressors. He is sedated with benzodiazepines that was given to him in the emergency department. At this point in time, the patient assist-control mode of ventilation at the rate of 20, tidal volume was at 550 which I dropped down to 450 and his FiO2 is at 40%. Blood gases showed a pH of 7.37 with a pCO2 of 69 and a pO2 of 68. No significant leukocytosis. He has chronic atrial fibrillation. His articulation with warfarin. His PT/ INR was likely therapeutic at 2.0. On 02/16/2018, I'm seeing this patient for a follow-up. The patient is sedated on a mechanical ventilator. He is on a tidal volume of 450 with a rate of 20 and FiO2 of 40% and a PEEP of 5. Blood gases show some degree of alkalosis with a pH of 7.47 with a pCO2 of 60 and pO2 of 90. Airway pressures peak is at 32 with metastatic of 17. Still bronchospastic and wheezy. CAT scan of the chest was done and showed chronic fibrotic changes in the upper lobes bilaterally and some scarring. No evidence of any pneumonia. No evidence of any atelectasis or failure. Patient is also being diuresis with IV Lasix. He is receiving 20 mg of IV Lasix every 12 hours. He is in a negative fluid balance of 1.5 L since he came to the ICU. He is still in atrial fibrillation. INR therapeutic at 2.3. White cell count is not elevated. He remains and accommodation of bronchodilators and steroids. He is also on empiric antibiotic coverage. We'll initiate tube feeds. On 02/17/2018 the patient is being seen in follow-up. This morning it was on a mechanical ventilator on assist control mode and the vent settings have been essentially the same. Nevertheless the patient's airway pressures improved and the peak air pressures down to 27 and the morning blood gases showed a pH of 7.4 with a pCO2 of 60 and pO2 137. Chest x-ray shows no acute abnormalities. The patient is afebrile. The patient is hemodynamically stable. Based on all this, the patient was taken off sedation. Following that weaning parameters were checked and the patient was given a brace point is breathing trial with a pressure support of 5 and PEEP of 5. Following that, extubated this patient to a BiPAP pressure of 10/5 cm of water. He is currently awake and alert. He is utilizing the BiPAP without any major difficulties. He is moving all 4 extremities without any limitation. He states that the BiPAP as been helping him breathe. He is pulse oxing 97% while being on BiPAP at an FiO2 of 40%. He is on accommodation bronchodilators and steroids for now. He is also on broad- spectrum antibiotics. PT/INR is subtherapeutic at 1.8. His underlying cardiac rhythm is atrial fibrillation. There is a chronic problem. On patient seen in follow-up in the intensive care unit. He is awake alert, in no acute distress, pulse ox on 3 L per nasal cannula is 96%, he is afebrile, hemodynamically stable. IV 0.9 normal saline at a rate of 20 ML per hour. Patient was initially admitted on 02/15/2018, he was intubated at [facility] where he was transferred from. He was successfully extubated on 02/17/2018, and so far he is tolerating extubation quite well. No worsening dyspnea, today's exam feels a few scattered rhonchi, but no significant wheezing. Patient wears home oxygen at 3 L/m. He remains in A. fib with a controlled rate, at 88 BPM. Is tolerating clear liquid diet, no nausea, no vomiting, no diarrhea. Today's chest x-ray has been reviewed shows mild fluid overload. Labs have been reviewed, no leukocytosis, hemoglobin is 12.9, sodium is 136, potassium is 4.7, chloride is 94, BUN is 24, creatinine is 0.50. She remains on empiric antibiotics in the form of azithromycin and Rocephin, he is on nebulized bronchodilators, he is on IV Lasix at 20 mg daily, we will continue with that for another day, he remains on systemic steroids at 60 mg every 6 hours. He is on Coumadin for anticoagulation for his history of chronic A. fib, and today's INR is therapeutic at 2.0. Objective - Vital Signs Vital signs: Vital Signs Temp 97.8 F 02/18/18 08:00 Pulse 100 02/18/18 08:26 Resp 28 H 02/18/18 08:00 BP 103/70 02/18/18 08:00 Pulse Ox 96 02/18/18 08:00 Intake & Output 02/17/18 02/18/18 02/18/18 18:59 06:59 18:59 Intake Total 369.758 220 40 Output Total 1251 945 105 Balance -881.242 -725 -65 Weight 89.4 kg Intake: IV 270 220 40 0.9 KVO 20 220 40 Azithromycin 500 mg In 250 Dextrose 5% in Water 250 ml @ 125 mls/hr IVPB Q24H [facility] Rx#:[id number] Intake, IV Titration 19.758 Amount Propofol 1,000 mg In 19.758 Empty Bag 1 bag @ Titrate IV .Q0M [facility] Rx#: [id number] Tube Feeding 80 Output: Urine 1251 945 105 Other: Voiding Method Indwelling Catheter Indwelling Catheter - Exam Gen. appearance the patient is extubated on a BiPAP at a full face mask and the patient is very much synchronous with a mechanical ventilator. Head exam was generally normal. There was no scleral icterus or corneal arcus. Mucous membranes were moist. Neck was supple and without jugular venous distension, thyromegaly, or carotid bruits. Carotids were easily palpable bilaterally. Lungs sounds are diminished bilaterally and and there are scattered rhonchi bilaterally, with no significant wheezing Heart sounds are irregular, positive S1-S2 and there is no significant murmurs appreciated. Abdominal exam revealed normal bowel sounds. The abdomen was soft, non-tender, and without masses, organomegaly, or appreciable enlargement of the abdominal aorta. Examination of the extremities revealed easily palpable radial, femoral and pedal pulses. There was no cyanosis, clubbing or edema. Examination of the skin revealed no evidence of significant rashes, suspicious appearing nevi or other concerning lesions. Neurologically the patient awake following commands and answering simple questions. Moving all 4 extremities. - Labs CBC & Chem 7: 02/18/18 04:32 02/18/18 06:29 Labs: Abnormal Lab Results - Last 24 Hours (Table) 02/17/18 02/17/18 02/17/18 Range/Units 12:17 17:05 21:35 RBC (4.30-5.90) m/uL Hgb (13.0-17.5) gm/dL Lymphocytes # (1.0-4.8) k/uL PT (9.0-12.0) sec INR (<1.2) Sodium (137-145) mmol/L Chloride (98-107) mmol/L Carbon Dioxide (22-30) mmol/L BUN (9-20) mg/dL Creatinine (0.66-1.25) mg/dL Glucose (74-99) mg/dL POC Glucose (mg/dL) 134 H 136 H 182 H (75-99) mg/dL Phosphorus (2.5-4.5) mg/dL Magnesium (1.6-2.3) mg/dL 02/18/18 02/18/18 02/18/18 Range/Units 04:29 04:32 04:32 RBC 4.00 L (4.30-5.90) m/uL Hgb 12.9 L (13.0-17.5) gm/dL Lymphocytes # 0.4 L (1.0-4.8) k/uL PT 18.3 H (9.0-12.0) sec INR 2.0 H (<1.2) Sodium 136 L (137-145) mmol/L Chloride 94 L (98-107) mmol/L Carbon Dioxide 35 H (22-30) mmol/L BUN 24 H (9-20) mg/dL Creatinine 0.50 L (0.66-1.25) mg/dL Glucose 134 H (74-99) mg/dL POC Glucose (mg/dL) (75-99) mg/dL Phosphorus 4.6 H (2.5-4.5) mg/dL Magnesium 2.4 H (1.6-2.3) mg/dL 02/18/18 Range/Units 06:59 RBC (4.30-5.90) m/uL Hgb (13.0-17.5) gm/dL Lymphocytes # (1.0-4.8) k/uL PT (9.0-12.0) sec INR (<1.2) Sodium (137-145) mmol/L Chloride (98-107) mmol/L Carbon Dioxide (22-30) mmol/L BUN (9-20) mg/dL Creatinine (0.66-1.25) mg/dL Glucose (74-99) mg/dL POC Glucose (mg/dL) 129 H (75-99) mg/dL Phosphorus (2.5-4.5) mg/dL Magnesium (1.6-2.3) mg/dL Microbiology - Last 24 Hours (Table) 02/15/18 18:57 Blood Culture - Preliminary Blood No Growth after 48 hours 02/15/18 04:20 Urine Culture - Final Urine,Catheterized Assessment and Plan Plan: Assessment: 1 acute hypoxic/hypercapnic respiratory failure likely on the basis of COPD. The patient is an acute COPD exacerbation. Computed tomography scan of the chest was done and there is no evidence of pneumonia. There is some chronic scarring in lung apices bilaterally. The patient was treated with accommodation bronchodilators, steroids and antibiotics. The patient was subsequently weaned off and extubated to a BiPAP at a pressure of 12/5 cm of water and FiO2 of 40%. Currently he is calm and comfortable. The follow-up blood gases is to be done at a later stage. Continue bronchodilators. Continue steroids. Chest x-ray was reviewed. 2 advanced end-stage COPD 3 chronic hypoxic respiratory failure secondary to COPD 4 chronic atrial fibrillation 5TIA, history of 6 dementia 7 hypertension 8 hyperlipidemia 9 BPH 10 osteoarthritis Plan: Continue IV diuretics 1 more day, continue same dose Solu-Medrol, empiric antibiotics, nebulized bronchodilators. His chest x-ray has been reviewed, and changes are consistent with mild fluid overload. No leukocytosis, patient is afebrile, hemodynamically stable, tolerating oral diet. From pulmonary standpoint he could be transferred to selective care unit today, the chest x- ray in the morning, continue monitoring labs, renal profile, electrolytes. I performed a history & physical examination of the patient and discussed their management with my nurse practitioner, Paula Donis. I reviewed the nurse practitioner's note and agree with the documented findings and plan of care. Lung sounds are positive for a few scattered rhonchi. The findings and the impression was discussed with the patient. I attest to the documentation by the nurse practitioner. Time with Patient: Greater than 30
[2018-02-18] MEDS: INSULIN ASPART 100 UNIT/ML 1 ML 10 ML VIAL SQ SCH ×4 (09:05→20:53)
[2018-02-18] MEDS: FUROSEMIDE 10 MG/ML 2 ML VIAL IV SCH (09:08)
[2018-02-18] MEDS: MEMANTINE 10 MG TAB PO SCH (09:08)
[2018-02-18] MEDS: PANTOPRAZOLE 40 MG/10 ML VIAL IVP SCH (09:08)
--- NOTE | 2018-02-18 10:16 | P.PN ---
<Marce Humphreys E - Last Filed: 02/18/18 10:07> Subjective Progress Note Date: 02/18/18 Interval History: 02/18/18- patient is being seen examined and evaluated today on rounds in the intensive care unit. He is resting up in bed on 3 L of supplemental oxygen via nasal cannula which is what he wears at home for oxygen as well.. His chest x- ray is reviewed and does show mild pulmonary edema. He has been making good urine. He continues on antibiotics and steroids. He has occasional shortness of breath with a nonproductive cough. He did utilize the BiPAP for approximately 1 hour yesterday. He did not sleep with the BiPAP on. Overall he has been hemodynamically stable and tolerating his diet. Objective - Vital Signs Vital signs: Vital Signs Temp 97.8 F 02/18/18 08:00 Pulse 90 02/18/18 09:00 Resp 20 02/18/18 09:00 BP 117/74 02/18/18 09:00 Pulse Ox 97 02/18/18 09:00 Intake & Output 02/17/18 02/18/18 02/18/18 18:59 06:59 18:59 Intake Total 369.758 220 60 Output Total 1251 945 185 Balance -881.242 -725 -125 Weight 89.4 kg Intake: IV 270 220 60 0.9 KVO 20 220 60 Azithromycin 500 mg In 250 Dextrose 5% in Water 250 ml @ 125 mls/hr IVPB Q24H [facility] Rx#:[id number] Intake, IV Titration 19.758 Amount Propofol 1,000 mg In 19.758 Empty Bag 1 bag @ Titrate IV .Q0M [facility] Rx#: [id number] Tube Feeding 80 Output: Urine 1251 945 185 Other: Voiding Method Indwelling Catheter Indwelling Catheter - Exam GENERAL EXAM: Alert, comfortable in no apparent distress. HEAD: Normocephalic. EYES: Normal reaction of pupils, equal size. NOSE: Clear with pink turbinates. THROAT: No erythema or exudates. NECK: No masses, no JVD. CHEST: No chest wall deformity. LUNGS: Equal air entry with some scattered rhonchi bilaterally. Bases diminished. CVS: S1 and S2 normal with no audible mumurs, regular rhythm. ABDOMEN: No hepatosplenomegaly, normal bowel sounds, no guarding or rigidity. EXTREMITIES: No edema noted, pedal pulses palpable. CENTRAL NERVOUS SYSTEM: No focal deficits, tone is normal in all 4 extremities. - Labs CBC & Chem 7: 02/18/18 04:32 02/18/18 06:29 Labs: Abnormal Lab Results - Last 24 Hours (Table) 02/17/18 02/17/18 02/17/18 Range/Units 12:17 17:05 21:35 RBC (4.30-5.90) m/uL Hgb (13.0-17.5) gm/dL Lymphocytes # (1.0-4.8) k/uL PT (9.0-12.0) sec INR (<1.2) Sodium (137-145) mmol/L Chloride (98-107) mmol/L Carbon Dioxide (22-30) mmol/L BUN (9-20) mg/dL Creatinine (0.66-1.25) mg/dL Glucose (74-99) mg/dL POC Glucose (mg/dL) 134 H 136 H 182 H (75-99) mg/dL Phosphorus (2.5-4.5) mg/dL Magnesium (1.6-2.3) mg/dL 02/18/18 02/18/18 02/18/18 Range/Units 04:29 04:32 04:32 RBC 4.00 L (4.30-5.90) m/uL Hgb 12.9 L (13.0-17.5) gm/dL Lymphocytes # 0.4 L (1.0-4.8) k/uL PT 18.3 H (9.0-12.0) sec INR 2.0 H (<1.2) Sodium 136 L (137-145) mmol/L Chloride 94 L (98-107) mmol/L Carbon Dioxide 35 H (22-30) mmol/L BUN 24 H (9-20) mg/dL Creatinine 0.50 L (0.66-1.25) mg/dL Glucose 134 H (74-99) mg/dL POC Glucose (mg/dL) (75-99) mg/dL Phosphorus 4.6 H (2.5-4.5) mg/dL Magnesium 2.4 H (1.6-2.3) mg/dL 02/18/18 Range/Units 06:59 RBC (4.30-5.90) m/uL Hgb (13.0-17.5) gm/dL Lymphocytes # (1.0-4.8) k/uL PT (9.0-12.0) sec INR (<1.2) Sodium (137-145) mmol/L Chloride (98-107) mmol/L Carbon Dioxide (22-30) mmol/L BUN (9-20) mg/dL Creatinine (0.66-1.25) mg/dL Glucose (74-99) mg/dL POC Glucose (mg/dL) 129 H (75-99) mg/dL Phosphorus (2.5-4.5) mg/dL Magnesium (1.6-2.3) mg/dL Microbiology - Last 24 Hours (Table) 02/15/18 21:20 Gram Stain - Final Sputum Sputum Culture - Final 02/15/18 18:57 Blood Culture - Preliminary Blood No Growth after 48 hours 02/15/18 04:20 Urine Culture - Final Urine,Catheterized Assessment and Plan Assessment: Assessment Acute hypoxic/hypercapnic respiratory failure Acute exacerbation of COPD Chronic hypoxic respiratory failure Interstitial fibrosis Cor pulmonale Chronic A. fib History of TIA Plan Patient is hemodynamically stable and has been cleared to be downgraded from the ICU Medications have been reviewed and will be continued as ordered. Continue with antibiotic and steroids Gentle diuresis Continue with pulmonary hygiene, coughing and deep breathing exercises, and supportive care. Supplemental oxygen to maintain oxygen saturations of 92% or better. BiPAP as needed Continue nebulizer treatments. GI and DVT prophylaxis. We will continue to monitor labs/results and adjust treatment as necessary. Further recommendations pending. Family at bedside updated on plan of care I performed an examination of the patient and discussed their management with the nurse practitioner. I have reviewed the nurse practitioner's note and agree with the documented findings and plan of care. <Laura Winters A - Last Filed: 02/18/18 14:50> Objective - Vital Signs Vital signs: Vital Signs Temp 97.7 F 02/18/18 13:00 Pulse 105 H 02/18/18 14:00 Resp 20 02/18/18 14:00 BP 117/61 02/18/18 14:00 Pulse Ox 98 02/18/18 14:00 Intake & Output 08/12/18 08/13/18 08/13/18 18:59 06:59 18:59 Intake Total 369.758 220 960 Output Total 1801 697 6706 Balance -882.498 -721 -991 Weight 89.4 kg Intake: IV 270 220 160 0.9 KVO 20 220 160 Azithromycin 500 mg In 250 Dextrose 5% in Water 250 ml @ 125 mls/hr IVPB Q24H [facility] Rx#:[id number] Intake, IV Titration 19.758 Amount Propofol 1,000 mg In 19.758 Empty Bag 1 bag @ Titrate IV .Q0M [facility] Rx#: [id number] Oral 800 Tube Feeding 80 Output: Urine 4121 124 4638 Other: Voiding Method Indwelling Catheter Indwelling Catheter Indwelling Catheter - Labs CBC & Chem 7: 02/18/18 04:32 02/18/18 06:29 Labs: Abnormal Lab Results - Last 24 Hours (Table) 02/17/18 02/17/18 02/18/18 Range/Units 17:05 21:35 04:29 RBC (4.30-5.90) m/uL Hgb (13.0-17.5) gm/dL Lymphocytes # (1.0-4.8) k/uL PT 18.3 H (9.0-12.0) sec INR 2.0 H (<1.2) Sodium (137-145) mmol/L Chloride (98-107) mmol/L Carbon Dioxide (22-30) mmol/L BUN (9-20) mg/dL Creatinine (0.66-1.25) mg/dL Glucose (74-99) mg/dL POC Glucose (mg/dL) 136 H 182 H (75-99) mg/dL Phosphorus (2.5-4.5) mg/dL Magnesium (1.6-2.3) mg/dL 02/18/18 02/18/18 02/18/18 Range/Units 04:32 04:32 06:59 RBC 4.00 L (4.30-5.90) m/uL Hgb 12.9 L (13.0-17.5) gm/dL Lymphocytes # 0.4 L (1.0-4.8) k/uL PT (9.0-12.0) sec INR (<1.2) Sodium 136 L (137-145) mmol/L Chloride 94 L (98-107) mmol/L Carbon Dioxide 35 H (22-30) mmol/L BUN 24 H (9-20) mg/dL Creatinine 0.50 L (0.66-1.25) mg/dL Glucose 134 H (74-99) mg/dL POC Glucose (mg/dL) 129 H (75-99) mg/dL Phosphorus 4.6 H (2.5-4.5) mg/dL Magnesium 2.4 H (1.6-2.3) mg/dL 02/18/18 Range/Units 11:51 RBC (4.30-5.90) m/uL Hgb (13.0-17.5) gm/dL Lymphocytes # (1.0-4.8) k/uL PT (9.0-12.0) sec INR (<1.2) Sodium (137-145) mmol/L Chloride (98-107) mmol/L Carbon Dioxide (22-30) mmol/L BUN (9-20) mg/dL Creatinine (0.66-1.25) mg/dL Glucose (74-99) mg/dL POC Glucose (mg/dL) 139 H (75-99) mg/dL Phosphorus (2.5-4.5) mg/dL Magnesium (1.6-2.3) mg/dL Microbiology - Last 24 Hours (Table) 02/15/18 21:20 Gram Stain - Final Sputum Sputum Culture - Final 02/15/18 18:57 Blood Culture - Preliminary Blood No Growth after 48 hours 02/15/18 04:20 Urine Culture - Final Urine,Catheterized Assessment and Plan Assessment: Patient seen and examined in the ICU with nursing staff and at bedside. The patient states his breathing is getting better overall. He is on 4L NC. He does wear 2L NC at baseline. He did use the bipap for 1 hour last night. He does not feel he needs it anymore. We will keep it on standby one more night then discontinue tomorrow morning if he does well overnight. Continue PT and OT. Encourage ambulation, IS. Eliquis. Pulmicort, Rocephin, Lasix, Duonebs, Solumedrol taper, Singulair. Patient to be transferred out of the ICU today. ~Laura Winters,
[2018-02-18 11:53] LABS: Glucose,Whole Blood 139 mg/dL (75-99)
[2018-02-18] MEDS: THIAMINE 100 MG TAB PO SCH (12:51)
[2018-02-18] MEDS: FOLIC ACID 1 MG TAB PO SCH (12:51)
--- NOTE | 2018-02-18 13:10 | CDI ---
Last Revision, June 2017 Documentation Clarification Form Date: 02/18/2018 1:01:17 PM From: Edith Garcia RN, CCDS Admit Date: 02/15/2018 4:39:00 PM Patient Name: Bernardino Fountain Visit Number: [id number] ATTENTION: The Clinical Documentation Specialists (CDI) and [facility] Coding Staff appreciate your assistance in clarifying documentation. Please respond to the clarification below the line at the bottom and electronically sign. The CDI & [facility] Coding staff will review the response and follow-up if needed. Please note: Queries are made part of the Legal Health Record. If you have any questions, please contact the author of this message via ITS. Wiliam Romo MD History/Risk Factors: CHF, COPD, Cor Pulmonale Clinical Indicators: 02/16 Cardiology Consult: "There is no evidence of any significant heart failure. Patient's echocardiogram reveals overall normal left ventricular systolic function. We will continue the current treatment." VS/Pulse OX: Temp 97, hr 71, RR 16, B/P 89/71, spo2 98% mechanical vent BNP: 1939 02/16 Echocardiogram Results: LV size, wall thickness and systolic function are normal, with an EF greater than 55%. 02/18 Chest X Ray: new bibasilar Airspace disease partially silhouetting the hemidiaphragms favored to represent atelectasis. Treatment: Lasix 20 Mg IVP Q 12 hrs changed to 20 mg IVP Daily In your professional opinion, can you please clarify the acuity and type of CHF if known? Diastolic Heart Failure: Acute Chronic Acute on Chronic Systolic & Diastolic Heart Failure: Acute Chronic Acute on Chronic Heart Failure Unable to Determine Other, please specify Please continue to document in your progress notes and discharge summary in order to capture severity of illness and risk of mortality. Include clinical findings that support your diagnosis. Unable to Determine MTDD
--- NOTE | 2018-02-18 13:22 | CDI ---
Last Revision, June 2017 Documentation Clarification Form Date: 02/18/2018 1:10:58 PM From: Edith Garcia RN, CCDS Admit Date: 02/15/2018 4:39:00 PM Patient Name: Bernardino Fountain Visit Number: [id number] ATTENTION: The Clinical Documentation Specialists (CDI) and [facility] Coding Staff appreciate your assistance in clarifying documentation. Please respond to the clarification below the line at the bottom and electronically sign. The CDI & [facility] Coding staff will review the response and follow-up if needed. Please note: Queries are made part of the Legal Health Record. If you have any questions, please contact the author of this message via ITS. /aMrce Humphreys EMERGENCY VEHICLE OPERATOR Asthma is only documented in your consult & progress notes and requires further specificity. Patient history/risk factors: Cor Pulmonale, COPD, TIA, chronic hypoxic respiratory failure Clinical Indicators: 02/15 (Braulio King) Pulmonary Consult: "Acute respiratory failure secondary to chronic obstructive pulmonary disease with asthma with acute exacerbation." 02/15 (Dr. Simms) Pulmonary Consult: "acute COPD Exacerbation" CXR: new bibasilar airspace disease partially silhouetting the hemidiaphragms favored to represent atelectasis. Vital Signs: Temp 97, HR 71, RR 16, B/P 89/71, SPO2 98% on mechanical vent Treatment: Medication: IVP Ativan, IVF Bolus, IV Solumedrol 125mg IVP followed by taper, Pulmicort .5 mg INH BID, Singulair 10 MG PO Q HS, Mag IVP x 2 bags, Lasix 20 mg IVP Daily Consults: Pulmonary In your professional opinion, can you please further specify the following, if known? With: Acute Exacerbation Status asthmaticus Acute lower respiratory infection COPD (specify with or without exacerbation) Chronic obstructive bronchitis Other, please specify ___ Unable to determine Severity: Mild intermittent Mild persistent Moderate persistent Severe persistent Other, please specify ____ Unable to determine Form or Type: Cough variant Childhood Exercise induced bronchospasm Extrinsic allergic Idiosyncratic Intrinsic nonallergic Late-onset Mixed Other, please specify____ Unable to determine Please continue to document in your progress notes and discharge summary in order to capture severity of illness and risk of mortality. Include clinical findings that support your diagnosis. Acute exacerbation of chronic moderate persistent asthma and acute exacerbation of COPD MTDD
--- NOTE | 2018-02-18 13:36 | PN ---
PROGRESS NOTE DATE OF SERVICE: 02/18/2018. HISTORY: This is an 82-year-old gentleman who was admitted with COPD exacerbation, bilateral pneumonia, acute respiratory failure. Extubated at this time. The patient is being closely monitored. Patient is on broad-spectrum IV antibiotics. Dr. Nicole is following the patient closely in the outpatient setting. REVIEW OF SYSTEMS: CARDIOVASCULAR: No angina or palpitations. RESPIRATORY: As mentioned. GI: No nausea : No dysuria. NERVOUS SYSTEM: No numbness or weakness. CURRENT MEDICATIONS: Reviewed, include: 1. DuoNeb q.i.d. and p.r.n. 2. Eliquis 5 mg p.o. b.i.d. 3. Tenormin 50 mg at bedtime. 4. Zithromax 500 mg daily. 5. Pulmicort 0.5 b.i.d. 6. Rocephin 1 g daily. 7. Folic acid 1 mg b.i.d. 8. Lasix 20 mg daily. 9. NovoLog. 10.Namenda 10 mg daily. 11.Solu-Medrol 60 IV every 6 hours. 13.Singular. 14.Narcan. 15.Protonix 40 mg. 16.Vitamin B1, 100 mg p.o. daily. PHYSICAL EXAMINATION: Alert oriented x2. Pulse is 96, blood pressure ntd, respirations 24, temperature normal, pulse ox 99% on 3 L. HEENT: Conjunctivae normal. NECK: No JVD. CARDIOVASCULAR: Breath sounds diminished in the bases. Few scattered rhonchi and crackles. Expiratory wheezing also present. ABDOMEN: Soft, nontender. No mass palpable. EXTREMITIES: Legs no edema, no swelling. NERVOUS SYSTEM: Higher functions as mentioned. Moves all limbs equally. No focal motor or sensory deficits. LYMPHATICS: No lymph nodes palpable in the neck. LAB STUDIES: WBC 7.2, hemoglobin 12, sodium 136. ASSESSMENT: 1. Chronic obstructive pulmonary disease acute exacerbation with bilateral pneumonia, possibly gram-negative with acute hypoxic hypercarbic respiratory failure status post mechanical ventilation and BiPAP. 2. History of atrial fibrillation. 3. Chronic obstructive pulmonary disease. 4. History of cerebrovascular accident, transient ischemic attack. 5. Coumadin monitoring. 6. History benign prostatic hypertrophy. 7. History of chronic hypoxic respiratory failure. 8. History of chronic atrial fibrillation. 9. History automatic implantable cardioverter defibrillator (AICD). 10.History of zoster. 11.History of dementia. 12.Remote history of nicotine dependence. RECOMMENDATION AND DISCUSSION: Recommend to continue current medications, continue with monitoring and symptomatic treatment. At this time I recommend continue with bronchodilators and antibiotics and steroids. Follow closely with Pulmonary. Continue with Eliquis. Prognosis guarded because of multiple complex medical issues. Further recommendations to follow. MMCEDL / IJN: [id number] / MTDD
--- NOTE | 2018-02-18 14:42 | PN ---
PROGRESS NOTE DATE OF SERVICE: 02/18/2018. HISTORY: The patient was admitted with acute hypoxic respiratory failure. The patient is doing fairly well. He is sitting comfortably by the bedside chair. Vital signs remain stable. Heart rate is 80 to 90 per minute, blood pressure is 110/68 mmHg. First and second heart sounds are normal. Lungs are clinically clear to auscultation and percussion. PLAN: Discussed with the patient as well as the patient's . Instead of Coumadin we will switch the patient to Eliquis 5 mg b.i.d. from tomorrow. MMODL / IJN: [id number] /
[2018-02-18] MEDS: AZITHROMYCIN 500 MG in DEXTROSE 5% IN WATER 250 ML IVPB SCH ×2 (15:48)
[2018-02-18 17:36] LABS: Glucose,Whole Blood 182 mg/dL (75-99)
[2018-02-18] MEDS: methylPREDNISolone SOD SUCCI 40 MG/ML 1 ML VIAL IV SCH (18:35)
[2018-02-18] MEDS: cefTRIAXone IN SWFI 1,000 MG/10 ML SYRINGE IVP SCH (18:35)
[2018-02-18] MEDS: MONTELUKAST 10 MG TAB PO SCH (20:41)
[2018-02-18] MEDS: ATENOLOL 50 MG TAB PO SCH (20:41)
[2018-02-18 20:47] LABS: Glucose,Whole Blood 155 mg/dL (75-99)
[2018-02-19] MEDS: methylPREDNISolone SOD SUCCI 40 MG/ML 1 ML VIAL IV SCH ×3 (00:08→17:36)
[2018-02-19 01:58] LABS: Mycoplasma IgM Antibody 0.11 INDEX (<=0.90)
[2018-02-19 04:30] LABS: Basophils % (A) 0 %; Eosinophils % (A) 0 %; HCT 39.6 % (39.0-53.0); HGB 13.1 gm/dL (13.0-17.5); Lymphocytes # (A) 0.3 k/uL (1.0-4.8); Lymphocytes % (A) 5 %; MCH 32.6 pg (25.0-35.0); MCV 98.7 fL (80.0-100.0); Monocytes # (A) 0.5 k/uL (0-1.0); Monocytes % (A) 7 %; Neutrophils # (A) 6.3 k/uL (1.3-7.7); Neutrophils % (A) 87 %; Platelet Count 174 k/uL (150-450); RBC 4.01 m/uL (4.30-5.90); RDW 14.4 % (11.5-15.5); WBC 7.2 k/uL (3.8-10.6)
[2018-02-19 04:37] LABS: INR 2.8 (<1.2); Prothrombin Time 25.5 sec (9.0-12.0)
[2018-02-19 04:43] LABS: Blood Urea Nitrogen 28 mg/dL (9-20); Calcium 8.9 mg/dL (8.4-10.2); Chloride 91 mmol/L (98-107); Glucose 148 mg/dL (74-99); Magnesium 2.3 mg/dL (1.6-2.3); Phosphorus 4.3 mg/dL (2.5-4.5); Potassium 4.8 mmol/L (3.5-5.1); Sodium 136 mmol/L (137-145)
[2018-02-19 04:50] LABS: Anion Gap 4 mmol/L
[2018-02-19 04:55] LABS: Carbon Dioxide 41 mmol/L (22-30)
[2018-02-19 07:20] LABS: Glucose,Whole Blood 125 mg/dL (75-99)
--- NOTE | 2018-02-19 08:18 | XR ---
EXAMINATION TYPE: XR chest 1V portable DATE OF EXAM: 02/19/2018 HISTORY: Shortness of breath. COMPARISON: February 18, 2018 TECHNIQUE: Single view of the chest is submitted. FINDINGS: Demonstrated are scattered senescent parenchymal change. Small right basilar effusion and pleural thickening is unchanged. The heart is stable. Hilar and mediastinal structures are within normal limits. Degenerative changes are seen of the dorsal spine. IMPRESSION: 1. Small right basilar effusion and pleural thickening is unchanged.
[2018-02-19] MEDS: IPRATROPIUM-ALBUTEROL 3 ML NEB INHALATION SCH ×4 (08:32→21:07)
[2018-02-19] MEDS: BUDESONIDE 0.5 MG/2 ML NEBU INHALATION SCH ×2 (08:33→21:08)
[2018-02-19] MEDS: INSULIN ASPART 100 UNIT/ML 1 ML 10 ML VIAL SQ SCH ×4 (08:49→22:26)
[2018-02-19] MEDS: PANTOPRAZOLE 40 MG/10 ML VIAL IVP SCH (08:55)
[2018-02-19] MEDS: APIXABAN 5 MG TAB PO SCH ×2 (08:55→22:20)
[2018-02-19] MEDS: MEMANTINE 10 MG TAB PO SCH (08:55)
[2018-02-19] MEDS: FUROSEMIDE 10 MG/ML 2 ML VIAL IV SCH (08:55)
[2018-02-19 10:27] VITALS: BMI 26.6
--- NOTE | 2018-02-19 11:05 | P.PN ---
<Marce Humphreys E - Last Filed: 02/19/18 11:01> Subjective Progress Note Date: 02/19/18 Interval History: 02/18/18- patient is being seen examined and evaluated today on rounds in the intensive care unit. He is resting up in bed on 3 L of supplemental oxygen via nasal cannula which is what he wears at home for oxygen as well.. His chest x- ray is reviewed and does show mild pulmonary edema. He has been making good urine. He continues on antibiotics and steroids. He has occasional shortness of breath with a nonproductive cough. He did utilize the BiPAP for approximately 1 hour yesterday. He did not sleep with the BiPAP on. Overall he has been hemodynamically stable and tolerating his diet. 02/19/18- patient being seen examined and evaluated today on rounds. He is resting up in bed on 4 L of supplemental oxygen via nasal cannula. The patient did not utilize the BiPAP overnight. He states he still gets short of breath with exertion and activity denies any cough or congestion. Feels like he is getting closer to his baseline. His chest x-ray was reviewed and does show a small right basilar effusion with pleural thickening that is unchanged. He is afebrile no further complaints. at bedside updated on plan of care Objective - Vital Signs Vital signs: Vital Signs Temp 98.1 F 02/19/18 08:00 Pulse 80 02/19/18 08:47 Resp 24 02/19/18 08:00 BP 120/82 02/19/18 08:00 Pulse Ox 93 L 02/19/18 08:00 Intake & Output 02/18/18 02/19/18 02/19/18 18:59 06:59 18:59 Intake Total 2750 440 1320 Output Total 1586 550 725 Balance 1164 -110 595 Weight 89 kg 89 kg Intake: IV 450 200 120 0.9 KVO 200 200 120 Azithromycin 500 mg In 250 Dextrose 5% in Water 250 ml @ 125 mls/hr IVPB Q24H [facility] Rx#:[id number] Oral 2300 240 1200 Output: Urine 1585 550 725 Stool 1 0 Other: Voiding Method Indwelling Catheter Urinal # Voids 0 1 2 - Exam GENERAL EXAM: Alert, comfortable in no apparent distress. HEAD: Normocephalic. EYES: Normal reaction of pupils, equal size. NOSE: Clear with pink turbinates. THROAT: No erythema or exudates. NECK: No masses, no JVD. CHEST: No chest wall deformity. LUNGS: Equal air entry with some scattered rhonchi bilaterally. Bases diminished. CVS: S1 and S2 normal with no audible mumurs, regular rhythm. ABDOMEN: No hepatosplenomegaly, normal bowel sounds, no guarding or rigidity. EXTREMITIES: No edema noted, pedal pulses palpable. CENTRAL NERVOUS SYSTEM: No focal deficits, tone is normal in all 4 extremities. - Labs CBC & Chem 7: 02/19/18 03:52 02/19/18 03:52 Labs: Abnormal Lab Results - Last 24 Hours (Table) 02/16/18 02/18/18 02/18/18 Range/Units 04:16 11:51 17:28 RBC (4.30-5.90) m/uL Lymphocytes # (1.0-4.8) k/uL PT (9.0-12.0) sec INR (<1.2) Sodium (137-145) mmol/L Chloride (98-107) mmol/L Carbon Dioxide (22-30) mmol/L BUN (9-20) mg/dL Creatinine (0.66-1.25) mg/dL Glucose (74-99) mg/dL POC Glucose (mg/dL) 139 H 182 H (75-99) mg/dL Mycoplasma pneumon IgG 1.43 H (<=0.90) INDEX 02/18/18 02/19/18 02/19/18 Range/Units 20:45 03:52 03:52 RBC 4.01 L (4.30-5.90) m/uL Lymphocytes # 0.3 L (1.0-4.8) k/uL PT (9.0-12.0) sec INR (<1.2) Sodium 136 L (137-145) mmol/L Chloride 91 L (98-107) mmol/L Carbon Dioxide 41 H* (22-30) mmol/L BUN 28 H (9-20) mg/dL Creatinine 0.60 L (0.66-1.25) mg/dL Glucose 148 H (74-99) mg/dL POC Glucose (mg/dL) 155 H (75-99) mg/dL Mycoplasma pneumon IgG (<=0.90) INDEX 02/19/18 02/19/18 Range/Units 03:52 07:18 RBC (4.30-5.90) m/uL Lymphocytes # (1.0-4.8) k/uL PT 25.5 H (9.0-12.0) sec INR 2.8 H (<1.2) Sodium (137-145) mmol/L Chloride (98-107) mmol/L Carbon Dioxide (22-30) mmol/L BUN (9-20) mg/dL Creatinine (0.66-1.25) mg/dL Glucose (74-99) mg/dL POC Glucose (mg/dL) 125 H (75-99) mg/dL Mycoplasma pneumon IgG (<=0.90) INDEX Microbiology - Last 24 Hours (Table) 02/15/18 18:57 Blood Culture - Preliminary Blood No Growth after 72 hours 02/15/18 21:20 Gram Stain - Final Sputum Sputum Culture - Final Assessment and Plan Assessment: Assessment Acute hypoxic/hypercapnic respiratory failure Acute exacerbation of COPD Chronic hypoxic respiratory failure Interstitial fibrosis Cor pulmonale Chronic A. fib History of TIA Plan Medications have been reviewed and will be continued as ordered. Continue with antibiotic and steroids Gentle diuresis Chest x-ray reviewed from today Continue with pulmonary hygiene, coughing and deep breathing exercises, and supportive care. Supplemental oxygen to maintain oxygen saturations of 92% or better. BiPAP as needed Continue nebulizer treatments. GI and DVT prophylaxis. We will continue to monitor labs/results and adjust treatment as necessary. Further recommendations pending. Family at bedside updated on plan of care I performed an examination of the patient and discussed their management with the nurse practitioner. I have reviewed the nurse practitioner's note and agree with the documented findings and plan of care. <Laura Winters A - Last Filed: 02/19/18 18:05> Objective - Vital Signs Vital signs: Vital Signs Temp 98.8 F 02/19/18 16:00 Pulse 88 02/19/18 16:00 Resp 21 02/19/18 16:00 BP 112/71 02/19/18 16:00 Pulse Ox 99 02/19/18 16:00 Intake & Output 02/18/18 02/19/18 02/19/18 18:59 06:59 18:59 Intake Total 2750 440 1320 Output Total 1586 550 725 Balance 1164 -110 595 Weight 89 kg 89 kg Intake: IV 450 200 120 0.9 KVO 200 200 120 Azithromycin 500 mg In 250 Dextrose 5% in Water 250 ml @ 125 mls/hr IVPB Q24H [facility] Rx#:[id number] Oral 2300 240 1200 Output: Urine 1585 550 725 Stool 1 0 Other: Voiding Method Indwelling Catheter Urinal Toilet # Voids 0 1 2 - Labs CBC & Chem 7: 02/19/18 03:52 02/19/18 03:52 Labs: Abnormal Lab Results - Last 24 Hours (Table) 02/16/18 02/18/18 02/19/18 Range/Units 04:16 20:45 03:52 RBC (4.30-5.90) m/uL Lymphocytes # (1.0-4.8) k/uL PT (9.0-12.0) sec INR (<1.2) Sodium 136 L (137-145) mmol/L Chloride 91 L (98-107) mmol/L Carbon Dioxide 41 H* (22-30) mmol/L BUN 28 H (9-20) mg/dL Creatinine 0.60 L (0.66-1.25) mg/dL Glucose 148 H (74-99) mg/dL POC Glucose (mg/dL) 155 H (75-99) mg/dL Mycoplasma pneumon IgG 1.43 H (<=0.90) INDEX 02/19/18 02/19/18 02/19/18 Range/Units 03:52 03:52 07:18 RBC 4.01 L (4.30-5.90) m/uL Lymphocytes # 0.3 L (1.0-4.8) k/uL PT 25.5 H (9.0-12.0) sec INR 2.8 H (<1.2) Sodium (137-145) mmol/L Chloride (98-107) mmol/L Carbon Dioxide (22-30) mmol/L BUN (9-20) mg/dL Creatinine (0.66-1.25) mg/dL Glucose (74-99) mg/dL POC Glucose (mg/dL) 125 H (75-99) mg/dL Mycoplasma pneumon IgG (<=0.90) INDEX 02/19/18 02/19/18 Range/Units 11:20 17:35 RBC (4.30-5.90) m/uL Lymphocytes # (1.0-4.8) k/uL PT (9.0-12.0) sec INR (<1.2) Sodium (137-145) mmol/L Chloride (98-107) mmol/L Carbon Dioxide (22-30) mmol/L BUN (9-20) mg/dL Creatinine (0.66-1.25) mg/dL Glucose (74-99) mg/dL POC Glucose (mg/dL) 131 H 136 H (75-99) mg/dL Mycoplasma pneumon IgG (<=0.90) INDEX Microbiology - Last 24 Hours (Table) 02/15/18 18:57 Blood Culture - Preliminary Blood No Growth after 72 hours Assessment and Plan Assessment: patient seen and examined in the intensive care unit. The patient did not use BiPAP overnight. He states his breathing is about the same as yesterday. The patient did have an increase in his bicarbonate overnight. He has been hemodynamically stable. He will be transferred out of the intensive care unit today. We will give him 2 doses of Diamox. ~Laura Winters DO
[2018-02-19] MEDS: THIAMINE 100 MG TAB PO SCH (11:15)
[2018-02-19] MEDS: FOLIC ACID 1 MG TAB PO SCH (11:15)
[2018-02-19 11:21] LABS: Glucose,Whole Blood 131 mg/dL (75-99)
--- NOTE | 2018-02-19 13:19 | PN ---
PROGRESS NOTE This patient has a history of chronic atrial fibrillation. The patient came with acute respiratory failure. He is extubated. He is comfortable. No respiratory distress is noted. Patient has a heart rate is 80 per minute. Blood pressure is 120/82 mmHg. First and second heart sounds are normal. Lungs are clinically clear to auscultation and percussion. The patient is started on Eliquis 5 mg b.i.d. We will check with the insurance, will check about the patient's insurance coverage. MMODL / IJN: [id number] /
[2018-02-19] MEDS: AZITHROMYCIN 500 MG in DEXTROSE 5% IN WATER 250 ML IVPB SCH ×2 (16:19)
--- NOTE | 2018-02-19 17:31 | PN ---
PROGRESS NOTE DATE OF SERVICE: 02/19/2018 This 82-year-old gentleman who was admitted with COPD, acute exacerbation, and bilateral pneumonia is being closely monitored in the ICU. The patient is on bronchodilators and IV antibiotics. Patient also has a history of atrial fibrillation. Most recent chest x-ray showed right bibasilar effusion and pleural thickening also. Past medical history reviewed. REVIEW OF SYSTEMS: CARDIOVASCULAR SYSTEM: No angina, palpitations. RESPIRATORY SYSTEM: As mentioned earlier. GI: No nausea or vomiting. : No dysuria or retention NERVOUS SYSTEM: No numbness, weakness. CURRENT MEDICATIONS: Current medications are reviewed and include: 1. DuoNeb q.i.d. and p.r.n. 2. Eliquis 5 mg p.o. b.i.d. 3. Tenormin 50 mg at bedtime. 4. Zithromax 500 mg daily. 5. Pulmicort 0.5 b.i.d. 6. Rocephin 1 gram daily. 7. Folic acid 1 mg daily. 8. Lasix 20 mg daily. 9. NovoLog scale. 10.Namenda 10 mg p.o. daily. 11.Solu-Medrol 40 IV q.8. 12.Narcan. 13.Protonix. 14.Vitamin B1. PHYSICAL EXAMINATION: Patient is alert, oriented x3. Pulse is 81, blood pressure 111/69, respiration 24, temperature 98.4, pulse ox 98% on 4 L. HEENT: Conjunctivae normal. Oral mucosa moist. NECK: No jugular venous distention. No carotid bruit. No lymph node enlargement. CARDIOVASCULAR SYSTEM: S1, S2 muffled. RESPIRATORY SYSTEM: Breath sounds diminished at the bases. A few scattered rhonchi and crackles. ABDOMEN: Soft, non-tender. LEGS: No edema. No swelling. NERVOUS SYSTEM: No focal deficit. LABS: WBC 7.9, hemoglobin 12.9, INR 2.0. Sodium 136. ASSESSMENT: 1. Chronic obstructive pulmonary disease, acute exacerbation, with bilateral pneumonia, possibly gram-negative, with acute hypoxic hypercarbic respiratory failure, status post mechanical ventilation and BiPAP. 2. History of atrial fibrillation. 3. Chronic obstructive pulmonary disease history. 4. History of cerebrovascular accident, transient ischemic attack. 5. Coumadin monitoring. 6. History of benign prostatic hypertrophy. 7. History of chronic hypoxic respiratory failure. 8. History of chronic atrial fibrillation. 9. History of automated implantable cardioverter defibrillator. 10.History of herpes zoster. 11.History of dementia. 12.Remote history of nicotine dependence. RECOMMENDATIONS AND DISCUSSION: I recommend to continue current medication, continue with the monitoring, symptomatic treatment. I recommend monitoring the blood sugars closely. Continue with the antibiotics. Continue the bronchodilators. Closely follow with Pulmonary. Guarded prognosis. Further recommendations to follow. MMODL / IJN: [id number] /
[2018-02-19] MEDS: cefTRIAXone IN SWFI 1,000 MG/10 ML SYRINGE IVP SCH (17:36)
[2018-02-19 17:37] LABS: Glucose,Whole Blood 136 mg/dL (75-99)
[2018-02-19 20:04] LABS: Glucose,Whole Blood 166 mg/dL (75-99)
[2018-02-19 21:43] LABS: Glucose,Whole Blood 133 mg/dL (75-99)
[2018-02-19] MEDS: MONTELUKAST 10 MG TAB PO SCH (22:20)
[2018-02-19] MEDS: ATENOLOL 50 MG TAB PO SCH (22:20)
[2018-02-20] MEDS: methylPREDNISolone SOD SUCCI 40 MG/ML 1 ML VIAL IV SCH ×2 (03:43→08:12)
[2018-02-20 07:36] LABS: Glucose,Whole Blood 98 mg/dL (75-99)
[2018-02-20 07:45] LABS: Basophils % (A) 0 %; Eosinophils % (A) 0 %; HCT 41.8 % (39.0-53.0); HGB 13.8 gm/dL (13.0-17.5); Lymphocytes # (A) 0.7 k/uL (1.0-4.8); Lymphocytes % (A) 7 %; MCH 32.7 pg (25.0-35.0); MCHC 33.2 g/dL (31.0-37.0); MCV 98.6 fL (80.0-100.0); Mean Platelet Volume 7.9; Monocytes # (A) 0.4 k/uL (0-1.0); Monocytes % (A) 4 %; Neutrophils % (A) 86 %; Platelet Count 235 k/uL (150-450); RBC 4.24 m/uL (4.30-5.90); RDW 14.3 % (11.5-15.5); WBC 9.3 k/uL (3.8-10.6)
[2018-02-20] MEDS: INSULIN ASPART 100 UNIT/ML 1 ML 10 ML VIAL SQ SCH ×4 (07:51→21:12)
[2018-02-20 07:57] LABS: Blood Urea Nitrogen 26 mg/dL (9-20); Calcium 9.1 mg/dL (8.4-10.2); Chloride 96 mmol/L (98-107); Glucose 102 mg/dL (74-99); Potassium 4.4 mmol/L (3.5-5.1); Sodium 138 mmol/L (137-145)
[2018-02-20 08:12] LABS: Anion Gap 5 mmol/L; Carbon Dioxide 37 mmol/L (22-30)
[2018-02-20] MEDS: PANTOPRAZOLE 40 MG TABLET PO SCH (08:13)
[2018-02-20] MEDS: APIXABAN 5 MG TAB PO SCH ×2 (08:13→21:06)
[2018-02-20] MEDS: FUROSEMIDE 10 MG/ML 2 ML VIAL IV SCH (08:13)
[2018-02-20] MEDS: MEMANTINE 10 MG TAB PO SCH (08:13)
[2018-02-20] MEDS: IPRATROPIUM-ALBUTEROL 3 ML NEB INHALATION SCH ×4 (09:05→20:01)
[2018-02-20] MEDS: BUDESONIDE 0.5 MG/2 ML NEBU INHALATION SCH ×2 (09:05→20:01)
--- NOTE | 2018-02-20 10:13 | P.PN ---
Subjective Progress Note Date: 02/20/18 Interval History: 02/18/18- patient is being seen examined and evaluated today on rounds in the intensive care unit. He is resting up in bed on 3 L of supplemental oxygen via nasal cannula which is what he wears at home for oxygen as well.. His chest x- ray is reviewed and does show mild pulmonary edema. He has been making good urine. He continues on antibiotics and steroids. He has occasional shortness of breath with a nonproductive cough. He did utilize the BiPAP for approximately 1 hour yesterday. He did not sleep with the BiPAP on. Overall he has been hemodynamically stable and tolerating his diet. 02/19/18- patient being seen examined and evaluated today on rounds. He is resting up in bed on 4 L of supplemental oxygen via nasal cannula. The patient did not utilize the BiPAP overnight. He states he still gets short of breath with exertion and activity denies any cough or congestion. Feels like he is getting closer to his baseline. His chest x-ray was reviewed and does show a small right basilar effusion with pleural thickening that is unchanged. He is afebrile no further complaints. at bedside updated on plan of care 02/20/18- patient is being seen examined and evaluated today on rounds. He is resting up in his bed on 4 L of supplemental oxygen with family at bedside. He states he is feeling much better today. His breathing has improved. He does use 2 L of supplemental oxygen at home. He has remained on 4 L here. He'll require a home oxygen evaluation prior to discharge in order to see the amount he should go home on in regards to oxygen. His steroids have been switched to oral. He continues with antibiotics. He has been afebrile no further complaints. Objective - Vital Signs Vital signs: Vital Signs Temp 97.9 F 02/20/18 04:55 Pulse 76 02/20/18 09:25 Resp 15 02/20/18 04:55 BP 106/68 02/20/18 04:55 Pulse Ox 96 02/20/18 04:55 Intake & Output 02/19/18 02/20/18 02/20/18 18:59 06:59 18:59 Intake Total 1320 50 Output Total 725 725 Balance 595 -675 Weight 89 kg 86 kg Intake: IV 120 0.9 KVO 120 Oral 1200 50 Output: Urine 725 725 Stool 0 Other: Voiding Method Toilet Urinal Urinal # Voids 2 1 1 # Bowel Movements 1 - Exam GENERAL EXAM: Alert, comfortable in no apparent distress. HEAD: Normocephalic. EYES: Normal reaction of pupils, equal size. NOSE: Clear with pink turbinates. THROAT: No erythema or exudates. NECK: No masses, no JVD. CHEST: No chest wall deformity. LUNGS: Equal air entry with some scattered rhonchi bilaterally. Bases diminished. CVS: S1 and S2 normal with no audible mumurs, regular rhythm. ABDOMEN: No hepatosplenomegaly, normal bowel sounds, no guarding or rigidity. EXTREMITIES: No edema noted, pedal pulses palpable. CENTRAL NERVOUS SYSTEM: No focal deficits, tone is normal in all 4 extremities. - Labs CBC & Chem 7: 02/20/18 07:26 02/20/18 07:26 Labs: Abnormal Lab Results - Last 24 Hours (Table) 02/19/18 02/19/18 02/19/18 Range/Units 11:20 17:35 20:02 RBC (4.30-5.90) m/uL Neutrophils # (1.3-7.7) k/uL Lymphocytes # (1.0-4.8) k/uL Chloride (98-107) mmol/L Carbon Dioxide (22-30) mmol/L BUN (9-20) mg/dL Glucose (74-99) mg/dL POC Glucose (mg/dL) 131 H 136 H 166 H (75-99) mg/dL 02/19/18 02/20/18 02/20/18 Range/Units 21:42 07:26 07:26 RBC 4.24 L (4.30-5.90) m/uL Neutrophils # 8.0 H (1.3-7.7) k/uL Lymphocytes # 0.7 L (1.0-4.8) k/uL Chloride 96 L (98-107) mmol/L Carbon Dioxide 37 H (22-30) mmol/L BUN 26 H (9-20) mg/dL Glucose 102 H (74-99) mg/dL POC Glucose (mg/dL) 133 H (75-99) mg/dL Microbiology - Last 24 Hours (Table) 02/15/18 18:57 Blood Culture - Preliminary Blood No Growth after 96 hours Assessment and Plan Assessment: Assessment Acute hypoxic/hypercapnic respiratory failure Acute exacerbation of COPD Chronic hypoxic respiratory failure Interstitial fibrosis Cor pulmonale Chronic A. fib History of TIA Plan Medications have been reviewed and will be continued as ordered. Continue with antibiotic and steroids IV steroids have been switched to oral Gentle diuresis Continue with pulmonary hygiene, coughing and deep breathing exercises, and supportive care. Supplemental oxygen to maintain oxygen saturations of 92% or better. BiPAP as needed Continue nebulizer treatments. GI and DVT prophylaxis. We will continue to monitor labs/results and adjust treatment as necessary. Increase activity as tolerated PT and OT Further recommendations pending. Family at bedside updated on plan of care I performed an examination of the patient and discussed their management with the nurse practitioner. I have reviewed the nurse practitioner's note and agree with the documented findings and plan of care.
--- NOTE | 2018-02-20 12:07 | P.PN ---
Subjective Mr. Fountain is a pleasant 82-year-old male past medical history significant for chronic persistent atrial fibrillation on long-term anticoagulation, COPD, ASD with closure and former tobacco use. He follows with Dr. Quintero in the office. He was transferred from [place] for hypoxia secondary to acute exacerbation or COPD. He was intubated initially and in the ICU. He is seen and examined today on the medical floor with family at the bedside sitting up eating breakfast. Echo obtained this admission reveals preserved LV systolic function with EF greater than 55%, mild MR and mild TR. Anti-coagulation was changed from coumadin to eliquis yesterday. Currently maintained on atenolol 50 mg daily and lasix 20 mg IV daily. Chest xray obtained yesterday reveals ongoing small right basilar effusion. Laboratory data reviewed, hemoglobin 13.8, platelets 235, sodium 138, potassium 4.4, creatinine 0.82. Blood pressure 106/68 heart rate 67 afebrile maintaining oxygen saturation on nasal cannula. Objective - Vital Signs Vital signs: Vital Signs Temp 97.9 F 02/20/18 04:55 Pulse 76 02/20/18 09:25 Resp 15 02/20/18 04:55 BP 106/68 02/20/18 04:55 Pulse Ox 96 02/20/18 04:55 Intake & Output 02/19/18 02/20/18 02/20/18 18:59 06:59 18:59 Intake Total 1320 50 Output Total 725 725 Balance 595 -675 Weight 89 kg 86 kg Intake: IV 120 0.9 KVO 120 Oral 1200 50 Output: Urine 725 725 Stool 0 Other: Voiding Method Toilet Urinal Urinal # Voids 2 1 1 # Bowel Movements 1 - Exam GENERAL: Well-appearing, well-nourished and in no acute distress. NECK: Supple without JVD or thyromegaly. LUNGS: Diminishe bilaterally with faint expiratory wheeze noted throughout. Respiration equal and unlabored. No rales or rhonchi. HEART: Regular rate and rhythm without murmurs, rubs or gallops. S1 and S2 heard. EXTREMITIES: Normal range of motion, trace bilateral non-pitting lower extremity edema. No clubbing or cyanosis. Peripheral pulses intact. - Labs CBC & Chem 7: 02/20/18 07:26 02/20/18 07:26 Labs: Abnormal Lab Results - Last 24 Hours (Table) 02/19/18 02/19/18 02/19/18 Range/Units 17:35 20:02 21:42 RBC (4.30-5.90) m/uL Neutrophils # (1.3-7.7) k/uL Lymphocytes # (1.0-4.8) k/uL Chloride (98-107) mmol/L Carbon Dioxide (22-30) mmol/L BUN (9-20) mg/dL Glucose (74-99) mg/dL POC Glucose (mg/dL) 136 H 166 H 133 H (75-99) mg/dL 02/20/18 02/20/18 Range/Units 07:26 07:26 RBC 4.24 L (4.30-5.90) m/uL Neutrophils # 8.0 H (1.3-7.7) k/uL Lymphocytes # 0.7 L (1.0-4.8) k/uL Chloride 96 L (98-107) mmol/L Carbon Dioxide 37 H (22-30) mmol/L BUN 26 H (9-20) mg/dL Glucose 102 H (74-99) mg/dL POC Glucose (mg/dL) (75-99) mg/dL Microbiology - Last 24 Hours (Table) 02/15/18 18:57 Blood Culture - Preliminary Blood No Growth after 96 hours Assessment and Plan Assessment: ASSESSMENT Acute hypoxic respiratory failure secondary to COPD Acute exacerbation of COPD Pneumonia on antibiotics and IV steroids Chronic persistent atrial fibrillation on detention anticoagulation, controlled ventricular response Hypertension PLAN Awaiting coverage information on Eliquis. If covered he will go home on 5 mg BID , if not he will be put back on coumadin. Stable from a cardiac perspective. Follow up with Dr. Quintero in 2-3 weeks. We will continue to follow as needed, please feel free to call with further questions or concerns. Nurse Practitioner note has been reviewed, I agree with a documented findings and plan of care. Patient was seen and examined.
[2018-02-20 12:09] LABS: Glucose,Whole Blood 121 mg/dL (75-99)
[2018-02-20] MEDS: THIAMINE 100 MG TAB PO SCH (12:16)
[2018-02-20] MEDS: FOLIC ACID 1 MG TAB PO SCH (12:16)
[2018-02-20] MEDS: predniSONE 50 MG TAB PO SCH (12:16)
--- NOTE | 2018-02-20 15:20 | US ---
EXAMINATION TYPE: US venous doppler duplex LE BI DATE OF EXAM: 02/20/2018 2:32 PM COMPARISON: Prior bilateral lower extremity venous ultrasound December 12, 2017 CLINICAL HISTORY: r/o DVT. Right leg swelling x one year; pneumonia, on O2 SIDE PERFORMED: Bilateral TECHNIQUE: The lower extremity deep venous system is examined utilizing real time linear array sonog duane with graded compression, doppler sonography and color-flow sonography. VESSELS IMAGED: Common Femoral Vein Deep Femoral Vein Greater Saphenous Vein * Femoral Vein Popliteal Vein Small Saphenous Vein * Proximal Calf Veins (* superficial vessels) Right Leg: Valve wall echoes are noted at upper Greater Saphenous Vein, otherwise, leg is negative f or DVT. Left Leg: Negative for DVT Grayscale, color doppler, spectral doppler imaging performed of the deep veins of the bilateral lowe r extremities. There is normal flow, compressibility, vascular waveforms. IMPRESSION: No ultrasound evidence for acute DVT in either lower extremity.
[2018-02-20] MEDS ORDERED: AZITHROMYCIN 500 MG TAB PO SCH (16:00)
[2018-02-20] MEDS: cefTRIAXone IN SWFI 1,000 MG/10 ML SYRINGE IVP SCH (17:01)
[2018-02-20 17:09] LABS: Glucose,Whole Blood 157 mg/dL (75-99)
--- NOTE | 2018-02-20 18:40 | PN ---
PROGRESS NOTE DATE OF SERVICE: 02/20/2018 This 82-year-old gentleman admitted with COPD exacerbation, pneumonia, respiratory failure is being closely monitored. No chest pain. No palpitations. No fever. The venous Doppler is negative for pulmonary embolism. Chest x-ray is improving at this time. PHYSICAL EXAM: Alert and oriented x3. Pulse is 87. Blood pressure 120/72, respiration 18, temp 97.7, pulse ox 92% on 4 L. HEENT: Conjunctivae normal. Oral mucosa moist. Neck is no jugular venous distention. No carotid bruit. No lymph nodes enlargement. Cardiovascular systems: S1, S2 muffled. Respiration: Breath sounds diminished in the bases. A few scattered rhonchi and crackles. ABDOMEN: Soft, nontender. Legs are no edema, no swelling. Central nervous system: No focal deficits. LABS: WBC 9.2, hemoglobin 13.2. Sodium 138. ASSESSMENT: 1. Chronic obstructive pulmonary disease acute exacerbation with bilateral pneumonia possibly gram-negative with acute hypoxic hypercarbic respiratory failure status post mechanical ventilation on BiPAP. 2. History of atrial fibrillation. 3. History of chronic obstructive pulmonary disease. 4. Cerebrovascular accident/transient ischemic attack. 5. Coumadin monitoring. 6. History of benign prostatic hypertrophy. 7. Chronic hypoxic respiratory failure. 8. History of chronic atrial fibrillation. 9. History of AICD. 10.History of herpes zoster. 11.History of dementia. 12.Remote history of nicotine dependence. RECOMMENDATIONS AND DISCUSSION: Recommend to continue current medications, continue to monitor and symptomatic treatment. Otherwise, at this time, I recommend continue with tapering steroids. Continue with bronchodilators, antibiotics. Closely follow with pulmonary. Guarded prognosis. Further recommendations to follow. MMODL / IJN: [id number] /
[2018-02-20] MEDS: MONTELUKAST 10 MG TAB PO SCH (21:06)
[2018-02-20] MEDS: ATENOLOL 50 MG TAB PO SCH (21:06)
[2018-02-20 21:22] LABS: Glucose,Whole Blood 172 mg/dL (75-99)
[2018-02-21 06:30] VITALS: RESP 20; TEMP 98
[2018-02-21 07:07] LABS: Glucose,Whole Blood 81 mg/dL (75-99)
[2018-02-21] MEDS: INSULIN ASPART 100 UNIT/ML 1 ML 10 ML VIAL SQ SCH ×2 (08:10→12:21)
[2018-02-21] MEDS: BUDESONIDE 0.5 MG/2 ML NEBU INHALATION SCH (08:46)
[2018-02-21] MEDS: IPRATROPIUM-ALBUTEROL 3 ML NEB INHALATION SCH ×2 (08:46→13:11)
[2018-02-21] MEDS ORDERED: FUROSEMIDE 40 MG TAB PO SCH (09:00)
[2018-02-21 09:42] VITALS: BP 97/53
[2018-02-21] MEDS: MEMANTINE 10 MG TAB PO SCH (09:43)
[2018-02-21] MEDS: PANTOPRAZOLE 40 MG TABLET PO SCH (09:43)
[2018-02-21] MEDS: APIXABAN 5 MG TAB PO SCH (09:43)
[2018-02-21] MEDS: predniSONE 50 MG TAB PO SCH (09:43)
--- NOTE | 2018-02-21 10:01 | P.PN ---
Subjective Progress Note Date: 02/21/18 Interval History: 02/18/18- patient is being seen examined and evaluated today on rounds in the intensive care unit. He is resting up in bed on 3 L of supplemental oxygen via nasal cannula which is what he wears at home for oxygen as well.. His chest x- ray is reviewed and does show mild pulmonary edema. He has been making good urine. He continues on antibiotics and steroids. He has occasional shortness of breath with a nonproductive cough. He did utilize the BiPAP for approximately 1 hour yesterday. He did not sleep with the BiPAP on. Overall he has been hemodynamically stable and tolerating his diet. 02/19/18- patient being seen examined and evaluated today on rounds. He is resting up in bed on 4 L of supplemental oxygen via nasal cannula. The patient did not utilize the BiPAP overnight. He states he still gets short of breath with exertion and activity denies any cough or congestion. Feels like he is getting closer to his baseline. His chest x-ray was reviewed and does show a small right basilar effusion with pleural thickening that is unchanged. He is afebrile no further complaints. at bedside updated on plan of care 02/20/18- patient is being seen examined and evaluated today on rounds. He is resting up in his bed on 4 L of supplemental oxygen with family at bedside. He states he is feeling much better today. His breathing has improved. He does use 2 L of supplemental oxygen at home. He has remained on 4 L here. He'll require a home oxygen evaluation prior to discharge in order to see the amount he should go home on in regards to oxygen. His steroids have been switched to oral. He continues with antibiotics. He has been afebrile no further complaints. 02/21/18- patient is being seen examined and evaluated today on rounds. He is resting up in bedside chair on 4 L of supplemental oxygen. Patient states that he feels his breathing is pretty close to his baseline. He was switched to oral prednisone yesterday and has been doing well with that. There are no current labs to review. His and son are at bedside and plan of care discussed with him at length as well as the direct care nurse. He is afebrile no further complaints continues doing his incentive spirometer and reaching volumes of approximately 1000 ML's to 1500 ML Objective - Vital Signs Vital signs: Vital Signs Temp 98 F 02/21/18 06:29 Pulse 91 02/21/18 09:42 Resp 20 02/21/18 06:29 BP 97/53 02/21/18 09:42 Pulse Ox 92 L 02/21/18 06:29 Intake & Output 02/20/18 02/21/18 02/21/18 18:59 06:59 18:59 Intake Total 600 300 Output Total 500 Balance 600 -200 Weight 82.5 kg Intake: Oral 600 300 Output: Urine 500 Other: Voiding Method Urinal Urinal # Voids 1 1 # Bowel Movements 1 - Exam GENERAL EXAM: Alert, comfortable in no apparent distress. HEAD: Normocephalic. EYES: Normal reaction of pupils, equal size. NOSE: Clear with pink turbinates. THROAT: No erythema or exudates. NECK: No masses, no JVD. CHEST: No chest wall deformity. LUNGS: Equal air entry. Bases diminished. CVS: S1 and S2 normal with no audible mumurs, regular rhythm. ABDOMEN: No hepatosplenomegaly, normal bowel sounds, no guarding or rigidity. EXTREMITIES: No edema noted, pedal pulses palpable. CENTRAL NERVOUS SYSTEM: No focal deficits, tone is normal in all 4 extremities. - Labs CBC & Chem 7: 02/20/18 07:26 02/20/18 07:26 Labs: Abnormal Lab Results - Last 24 Hours (Table) 02/20/18 02/20/18 02/20/18 Range/Units 12:05 17:07 21:08 POC Glucose (mg/dL) 121 H 157 H 172 H (75-99) mg/dL Microbiology - Last 24 Hours (Table) 02/15/18 18:57 Blood Culture - Preliminary Blood No Growth after 120 hours Assessment and Plan Assessment: Assessment Acute hypoxic/hypercapnic respiratory failure Acute exacerbation of COPD Chronic hypoxic respiratory failure Interstitial fibrosis Cor pulmonale Chronic A. fib History of TIA Plan Patient could be cleared from pulmonary standpoint for discharge Medications have been reviewed and will be continued as ordered. Continue with antibiotic and steroids Oral prednisone taper Gentle diuresis Continue with pulmonary hygiene, coughing and deep breathing exercises, and supportive care. Supplemental oxygen to maintain oxygen saturations of 92% or better. BiPAP as needed Continue nebulizer treatments. GI and DVT prophylaxis. We will continue to monitor labs/results and adjust treatment as necessary. Increase activity as tolerated PT and OT Further recommendations pending. Family at bedside updated on plan of care I performed an examination of the patient and discussed their management with the nurse practitioner. I have reviewed the nurse practitioner's note and agree with the documented findings and plan of care.
[2018-02-21 11:04] LABS: Glucose,Whole Blood 88 mg/dL (75-99)
[2018-02-21 12:43] LABS: INR 1.5 (<1.2); Prothrombin Time 14.3 sec (9.0-12.0)
[2018-02-21 13:14] VITALS: PULSE 72
[2018-02-21] MEDS: THIAMINE 100 MG TAB PO SCH (13:21)
[2018-02-21] MEDS: FOLIC ACID 1 MG TAB PO SCH (13:21)
[2018-02-21] MEDS ORDERED: WARFARIN 5 MG TAB PO ONE (14:00)
[2018-02-21] MEDS ORDERED: APIXABAN 5 MG TAB PO SCH (21:00)
[2018-02-21] MEDS ORDERED: APIXABAN 2.5 MG TABLET PO SCH (21:00)
--- NOTE | 2018-02-21 22:21 | DS ---
DISCHARGE SUMMARY DATE OF SERVICE: 02/21/2018 FINAL DIAGNOSES: 1. Chronic obstructive pulmonary disease acute exacerbation with bilateral pneumonia possibly gram-negative with acute hypoxic hypercapnic respiratory failure status post mechanical ventilation and BiPAP. 2. History of atrial fibrillation, chronic. 3. History of chronic obstructive pulmonary disease. 4. History of cerebrovascular accident, transient ischemic attack. 5. Coumadin monitoring. 6. History of benign prostatic hypertrophy. 7. Chronic hypoxic respiratory failure. 8. History of AICD. 9. History of Herpes zoster. 10.History of dementia. 11.Remote history of nicotine dependence. DISCHARGE DISPOSITION: The patient is being discharged in stable condition with guarded prognosis. Total time taken 35 minutes. The pulmonary cleared the patient for discharge. HISTORY OF PRESENT ILLNESS: This 82-year-old gentleman with a past medical history of COPD was admitted with pneumonia and acute respiratory failure. Patient mechanically intubated in the ICU. The patient improved significantly. Patient extubated. The patient is also started on BiPAP. Patient was seen by superintendent measurement and cardiology during the hospitalization. Patient improved significantly. The patient discharged in stable condition with guarded prognosis. On exam, vitals are stable. Cardiovascular S1, S2. Abdomen soft. Nervous system: No focal deficits. The patient is followed by Dr. Nicole in the outpatient setting. The patient would like to continue with Coumadin at this time. DISCHARGE ADVICE AND MEDICATIONS: 1. Diet is cardiac diet. 2. Activity limited until followup. 3. Follow up with Dr. Nicole in 2-3 days. 4. Follow up with Dr. Quintero and Dr. Evon King as recommended. MEDICATIONS ARE: 1. Tenormin 50 mg q.h.s. 2. Pulmicort 1-2 puffs b.i.d. 3. Vitamin B12 500 mcg p.o. b.i.d. 4. Folic acid 1 mg p.o. 5. Lasix 40 mg. 6. Namenda 10 mg q.h.s. 7. Singular 10 mg q.h.s. 8. Mysoline 50 mg p.o. t.i.d. 9. Zithromax 500 mg p.o. daily. 10.Ceftin 500 mg p.o. b.i.d. for 5 days. 11.DuoNeb q.i.d. and p.r.n. 12.Protonix 40 mg p.o. daily. 13.Prednisone taper 40 mg daily for 3 days, 30 for three days, 20 for three days and 10 for three days. 14.Vitamin B1 100 mg p.o. daily. 15.Coumadin 2.5 mg daily. Once again the patient is being discharged in stable condition with guarded prognosis. Followup labs of CBC, BMP, PT/INR with Dr. Nicole. MMODL / IJN: [id number] / [facility]
== END 2018-02-21 14:43 | disposition home health service (06) | DRG 208 ==
LOC: EC 14:38 → 6ICU 16:39 → 5MS5E 02-19 16:46
PROVIDERS: ADMIT Hospitalist; ATTEND Hospitalist
PROC: 5A1945Z Respiratory Ventilation, 24-96 Consecutive Hours (ICD-10-PCS; principal; 2018-02-15)
PROC: 5A09357 Assistance with Respiratory Ventilation, Less than 24 Consecutive Hours, Continuous Positive Airway Pressure (ICD-10-PCS; 2018-02-17)
DX: J96.21 Acute and chronic respiratory failure with hypoxia (principal); J15.6 Pneumonia due to other Gram-negative bacteria; E87.4 Mixed disorder of acid-base balance; J44.0 Chronic obstructive pulmonary disease with (acute) lower respiratory infection; J44.1 Chronic obstructive pulmonary disease with (acute) exacerbation; J45.41 Moderate persistent asthma with (acute) exacerbation; J96.22 Acute and chronic respiratory failure with hypercapnia; I11.0 Hypertensive heart disease with heart failure; I27.81 Cor pulmonale (chronic); I48.2 Chronic atrial fibrillation; J84.10 Pulmonary fibrosis, unspecified; I50.9 Heart failure, unspecified; F03.90 Unspecified dementia, unspecified severity, without behavioral disturbance, psychotic disturbance, mood disturbance, and anxiety; E78.5 Hyperlipidemia, unspecified; M19.90 Unspecified osteoarthritis, unspecified site; N40.0 Benign prostatic hyperplasia without lower urinary tract symptoms; G47.61 Periodic limb movement disorder; R77.9 Abnormality of plasma protein, unspecified; Z79.01 Long term (current) use of anticoagulants; Z79.899 Other long term (current) drug therapy; Z99.81 Dependence on supplemental oxygen; Z95.810 Presence of automatic (implantable) cardiac defibrillator; Z87.891 Personal history of nicotine dependence; Z87.74 Personal history of (corrected) congenital malformations of heart and circulatory system; Z86.73 Personal history of transient ischemic attack (TIA), and cerebral infarction without residual deficits; Z98.42 Cataract extraction status, left eye; Z98.41 Cataract extraction status, right eye; Z96.1 Presence of intraocular lens; Z82.5 Family history of asthma and other chronic lower respiratory diseases; Z82.49 Family history of ischemic heart disease and other diseases of the circulatory system
CPT/HCPCS: 36415; 36600; 71045; 71275; 80048; 80053; 81001; 82805; 83036; 83605; 83735; 83880; 84100; 84132; 84484; 85025; 85049; 85610; 85730; 86738; 87040; 87070; 87086; 87205; 87449; 93306; 93970; 94002; 94003; 94640; 94660; 96365; 96366; 96375; 96376; 99285

== ENCOUNTER 2018-07-12 11:41 | Inpatient (IN) | payer MEDICARE, BC ==
--- NOTE | 2018-07-12 12:14 | ED ---
SOB HPI - General Chief Complaint: Shortness of Breath Stated Complaint: Respiratory failure Time Seen by Provider: 07/12/18 11:41 Source: RN/MD, EMS, RN notes reviewed, old records reviewed Mode of arrival: EMS Limitations: physical limitation - History of Present Illness Initial Comments: This is a 82-year-old male who was brought in as a transfer from [facility] after presenting there with COPD and acute respiratory failure. At that facility he was intubated with a 7.5 ET tube. He did require critical care management in respiratory failure. Per paramedics that brought him in from home this morning he was found to be very dyspneic and had a 60% sat initially he did seem to stabilize after intubation and be placed on a ventilator. He was given DuoNeb treatments as well as IV steroids. CAT scan of brain was done which was negative for acute findings x-ray showed no definite infiltrates. He presents now to the emergency department at this facility on a propofol drip with ventilatory support. MD Complaint: shortness of breath - Related Data Home Medications Medication Instructions Recorded Confirmed Atenolol [Tenormin] 50 mg PO HS 11/10/14 02/15/18 Budesonide [Pulmicort Flexhaler] 1 - 2 puff INHALATION RT-BID 11/10/14 02/15/18 Cyanocobalamin [Vitamin B-12] 500 mcg PO BID 11/10/14 02/15/18 Montelukast [Singulair] 10 mg PO HS 11/10/14 02/15/18 Furosemide [Lasix] 40 mg PO DAILY 12/11/17 02/15/18 Folic Acid 1 mg PO DAILY 02/15/18 02/15/18 Memantine [Namenda] 10 mg PO HS 02/15/18 02/15/18 Cholecalciferol (Vitamin D3) 2,000 unit PO DAILY 07/12/18 07/12/18 [Vitamin D3] predniSONE 20 mg PO DAILY 07/12/18 07/12/18 Previous Rx's Medication Instructions Recorded Ipratropium-Albuterol Nebulize 3 ml INHALATION RT-QID ampul.juany 12/17/17 [Duoneb 0.5 mg-3 mg/3 ml Soln] Pantoprazole [Protonix] 40 mg PO SANKET-CLEMENTEKFST #0 tablet. 06/11/18 Thiamine [Vitamin B-1] 100 mg PO DAILY@1200 tab 12/17/17 Azithromycin [Zithromax] 500 mg PO DAILY@1600 #5 tab 02/21/18 Warfarin [Coumadin] 2.5 mg PO DAILY #0 02/21/18 Allergies Allergy/AdvReac Type Severity Reaction Status Date / Time No Known Allergies Allergy Verified 07/12/18 12:51 Review of Systems ROS Statement: Those systems with pertinent positive or pertinent negative responses have been documented in the HPI. ROS Other: All systems not noted in ROS Statement are negative. Past Medical History Past Medical History: Atrial Fibrillation, COPD, CVA/TIA, Osteoarthritis (OA), Prostate Disorder Additional Past Medical History / Comment(s): COPD, chronic hypoxic respiratory failure, chronic atrial fibrillation, BPH, previous history of TIA, history of atrial septal defect that was surgically repaired, hypertension, hyperlipidemia , previous history of herpes zoster, dementia with significant impairment in memory. History of Any Multi-Drug Resistant Organisms: None Reported Past Surgical History: Heart Catheterization Additional Past Surgical History / Comment(s): PROSTATE SURGERY(turp), JUSTA 2014 percutaneous closure of atrial septal defect, anibal cataracts Past Anesthesia/Blood Transfusion Reactions: No Reported Reaction Past Psychological History: No Psychological Hx Reported Smoking Status: Former smoker Past Alcohol Use History: Unable to Obtain Past Drug Use History: Unable to Obtain - Past Family History Father Family Medical History: Myocardial Infarction (IN) Mother Family Medical History: Congestive Heart Failure (CHF), COPD Additional Family Medical History / Comment(s): EMPHYSEMA General Exam - General Exam Comments Initial Comments: This is a well-developed well-nourished lethargic male who is currently on a ventilator. He is on a propofol drip. Limitations: physical limitation General appearance: lethargic Head exam: Present: atraumatic, normocephalic, normal inspection Eye exam: Present: normal appearance, PERRL, EOMI. Absent: scleral icterus, conjunctival injection, periorbital swelling ENT exam: Present: other (7.5 ET tube noted) Neck exam: Present: normal inspection, full ROM, other (No stridor JVD or bruits ). Absent: tenderness, meningismus, lymphadenopathy Respiratory exam: Present: normal lung sounds bilaterally (With ventilatory support) Cardiovascular Exam: Present: regular rate, normal rhythm, normal heart sounds. Absent: systolic murmur, diastolic murmur, rubs, gallop, clicks GI/Abdominal exam: Present: soft, normal bowel sounds. Absent: distended, tenderness, guarding, rebound, rigid Extremities exam: Present: normal inspection, full ROM, normal capillary refill. Absent: tenderness, pedal edema, joint swelling, calf tenderness Back exam: Present: normal inspection Neurological exam: Present: alert, altered, CN II-XII intact, other (The patient is on propofol) Psychiatric exam: Present: other (Able to fully evaluate due to the current situation with intubation and propofol) Skin exam: Present: warm, dry, intact, normal color. Absent: rash Course Vital Signs 07/12/18 07/12/18 07/12/18 11:58 12:25 12:35 Temperature 97.3 F L Pulse Rate 84 74 81 Respiratory 12 12 14 Rate Blood Pressure 109/77 85/62 99/73 O2 Sat by Pulse 100 100 100 Oximetry - Reevaluation(s) Reevaluation #1: 07/12/18 12:51 Patient ABG's were viewed and just is made to the ventilator. Patient require IV Ativan initially Medical Decision Making - Medical Decision Making I did discuss the findings with the admitting physician Dr. Brown and the drawbridge operator Dr. Yañez. Patient be admitted for inpatient treatment of acute respiratory failure and COPD. - Lab Data Lab Results 07/12/18 Range/Units 12:30 Sample Site rrad ABG pH 7.28 L (7.35-7.45) ABG pCO2 86 H* (35-45) mmHg ABG pO2 >400 H (83-108) mmHg ABG HCO3 40 H* (21-25) mmol/L ABG Total CO2 43 H (19-24) mmol/L ABG O2 Saturation 100.0 H (94-97) % ABG Base Excess 13.2 mmol/L Edmundo Test Yes FiO2 100 % - Radiology Data Radiology results: image reviewed (I did review the imaging done in this hospital the ET tube appears be in good position no definite infiltrates seen. No pneumothorax seen) Critical Care Time Critical Care Time: Yes Critical Care Time: 31 minutes of critical care time which includes initial presentation history physical labs x-rays review charting from the other hospital. Several reevaluation the patient during his time in emergency department discussed with the admitting physician and consult. Admission orders and documentation of the above Disposition Clinical Impression: Acute exacerbation of chronic obstructive airways disease, Acute respiratory failure Disposition: ADMITTED IP TO THIS HOSP Condition: Critical Referrals: None,Stated [Primary Care Provider] - 1-2 days
[2018-07-12] MEDS ORDERED: LORazepam 2 MG/ML INJ IV STA (12:17)
[2018-07-12] MEDS ORDERED: PROPOFOL 1,000 MG in EMPTY BAG 1 BAG IV ONE (12:18)
[2018-07-12] MEDS ORDERED: SODIUM CHLORIDE 0.9% 1,000 ML IV STA ×2 (12:26→13:19)
[2018-07-12 12:34] LABS: ABG Base Excess 13.2 mmol/L; ABG PH 7.28 (7.35-7.45); ABG PO2 >400 mmHg (83-108); ABG TCO2 43 mmol/L (19-24)
--- NOTE | 2018-07-12 12:58 | XR ---
EXAMINATION TYPE: XR chest 1V portable DATE OF EXAM: 07/12/2018 COMPARISON: February 19, 2018 HISTORY: Shortness of breath TECHNIQUE: Frontal and lateral views of the chest are obtained. FINDINGS: Scattered senescent parenchymal changes noted. Hyperinflation compatible with COPD. Endotracheal tube is in place. NG tube is seen coursing towards the stomach. Right suprahilar patchy density. Heart size is stable. Mediastinal structures are stable and grossly unremarkable. No evidence for hilar prominence. Degenerative changes dorsal spine. IMPRESSION: 1. Indwelling tubes and catheters as noted. 2. Patchy density right suprahilar region. 3. COPD
[2018-07-12] MEDS ORDERED: NALOXONE 0.4 MG/ML 1 ML VIAL IV PRN (13:03)
[2018-07-12] MEDS ORDERED: MORPHINE SULFATE 4 MG/ML SYRINGE IV PRN (13:03)
[2018-07-12] MEDS: PROPOFOL 1,000 MG in EMPTY BAG 1 BAG IV SCH (14:00)
[2018-07-12 14:33] LABS: Glucose,Whole Blood 133 mg/dL (75-99)
[2018-07-12 14:44] LABS: Basophils % (A) 0 %; Eosinophils % (A) 0 %; Lymphocytes # (A) 0.4 k/uL (1.0-4.8); Lymphocytes % (A) 4 %; MCH 32.1 pg (25.0-35.0); MCHC 31.5 g/dL (31.0-37.0); Macrocytosis Slight; Mean Platelet Volume 7.2; Monocytes # (A) 0.4 k/uL (0-1.0); Monocytes % (A) 4 %; Neutrophils # (A) 7.6 k/uL (1.3-7.7); Neutrophils % (A) 90 %; Platelet Count 199 k/uL (150-450); RBC 3.73 m/uL (4.30-5.90); RDW 14.5 % (11.5-15.5); WBC 8.5 k/uL (3.8-10.6)
[2018-07-12 14:51] LABS: ALT 41 U/L (21-72); AST 33 U/L (17-59); Albumin 3.5 g/dL (3.5-5.0); Alkaline Phosphatase 45 U/L (38-126); Anion Gap 3 mmol/L; Blood Urea Nitrogen 23 mg/dL (9-20); Calcium 8.6 mg/dL (8.4-10.2); Carbon Dioxide 38 mmol/L (22-30); Chloride 100 mmol/L (98-107); Glucose 148 mg/dL (74-99); Magnesium 2.1 mg/dL (1.6-2.3); Phosphorus 4.3 mg/dL (2.5-4.5); Potassium 5.3 mmol/L (3.5-5.1); Sodium 141 mmol/L (137-145); Total Bilirubin 0.6 mg/dL (0.2-1.3); Total Protein 6.2 g/dL (6.3-8.2)
[2018-07-12] MEDS: IPRATROPIUM-ALBUTEROL 3 ML NEB INHALATION SCH ×3 (16:04→23:49)
[2018-07-12 16:05] LABS: INR 2.1 (<1.2); Partial Thromboplastin Time 29.1 sec (22.0-30.0); Prothrombin Time 20.8 sec (9.0-12.0)
--- NOTE | 2018-07-12 16:28 | P.CNPUL ---
History of Present Illness Consult date: 07/12/18 Requesting physician: Darren E Sheet Reason for consult: other (Acute hypoxic and hypercapnic respiratory failure secondary to COPD exacerbation.) Chief complaint: Shortness of breath History of present illness: This is an 82-year-old white male with history of severe COPD, patient was actually a transfer from [facility], he presented earlier today with acute exacerbation of COPD, and acute hypercapnic respiratory failure requiring intubation and mechanical ventilation. Patient was transferred to our facility for further treatment. Apparently he was in the ER yesterday complaining of cough wheezing and shortness of breath, patient was given the option of being admitted to the hospital or discharge home. Patient chose to go home on oral antibiotics and steroids, but apparently that was a bad choice. When he was seen again in the ER today, patient was in extreme respiratory distress, intubated, placed on mechanical ventilation, and transferred to our facility. Back on 02/15/2018, patient was actually admitted to our facility with a similar presentation. And he was seen at the time by Dr. Simms. Patient was on mechanical ventilation for 3 days. And he was eventually extubated and discharged home. Going back to a history of COPD, patient clearly has history of advanced COPD, oxygen dependent, maintained normally on Pulmicort Respules and DuoNeb updrafts 4 times a day and when necessary. He normally sees Dr. Ashia guevara for his COPD on outpatient basis. Chest x-ray showed increased interstitial markings especially in the right perihilar area. No clear-cut evidence of infiltrate. Looking at his ventilator settings, he is presently on tidal volume of 450, assist control rate of 20, FiO2 of 50% which is titrated down based on O2 saturation, PEEP of 5. Patient has a 7.5 endotracheal tube. He is on propofol at 5 mcg/kg/m, not requiring any pressors at this point, he is also on IV fluid at 125 mL per hour which I cut down. I have also started the patient on antibiotics in the form of Zosyn and Levaquin, I have recommended that we continue his updrafts, steroids, and placed on heparin since he is normally on Coumadin. Known to have history of chronic atrial fibrillation. According to the family, the patient has been ill only for the last couple of days. Review of Systems ROS unobtainable: due to endotracheal tube Past Medical History Past Medical History: Atrial Fibrillation, Heart Failure, COPD, CVA/TIA, Dementia, Hyperlipidemia, Hypertension, Memory Impairment, Osteoarthritis (OA), Pneumonia, Prostate Disorder, Respiratory Disorder, Rheumatoid Arthritis (RA) Additional Past Medical History / Comment(s): Chronic hypoxic respiratory failure, past intubation/vent/bipap, home O2 at 2L/NC ATC, A/S defect with surgery, TIA in 2003, BPH, short term memory impairment, hx herpes zoster. History of Any Multi-Drug Resistant Organisms: None Reported Past Surgical History: Heart Catheterization, Hernia Repair, Prostate Surgery Additional Past Surgical History / Comment(s): PROSTATE SURGERY(turp), JUSTA 2014 percutaneous closure of atrial septal defect, anibal cataracts with lens implants, R inguinal hernia repair. Past Anesthesia/Blood Transfusion Reactions: No Reported Reaction, Motion Sickness Smoking Status: Former smoker - Past Family History Father Family Medical History: Myocardial Infarction (NE) Additional Family Medical History / Comment(s): Father of a NE at the age of 69yrs. Mother Family Medical History: Congestive Heart Failure (CHF), COPD Additional Family Medical History / Comment(s): EMPHYSEMA Medications and Allergies Home Medications Medication Instructions Recorded Confirmed Type Atenolol [Tenormin] 50 mg PO HS 11/10/14 07/12/18 History Budesonide [Pulmicort Flexhaler] 1 - 2 puff INHALATION RT-BID 11/10/14 07/12/18 History Cyanocobalamin [Vitamin B-12] 500 mcg PO BID 11/10/14 07/12/18 History Montelukast [Singulair] 10 mg PO HS 11/10/14 07/12/18 History Furosemide [Lasix] 40 mg PO DAILY 12/11/17 07/12/18 History Ipratropium-Albuterol Nebulize 3 ml INHALATION RT-QID ampul.neb 12/17/17 Rx [Duoneb 0.5 mg-3 mg/3 ml Soln] Pantoprazole [Protonix] 40 mg PO SANKET-BRKFST #0 tablet. 12/17/17 07/12/18 Rx Thiamine [Vitamin B-1] 100 mg PO DAILY@1200 tab 12/17/17 07/12/18 Rx Folic Acid 1 mg PO DAILY 02/15/18 07/12/18 History Memantine [Namenda] 10 mg PO HS 02/15/18 07/12/18 History Azithromycin [Zithromax] 500 mg PO DAILY@1600 #5 tab 02/21/18 07/12/18 Rx Warfarin [Coumadin] 2.5 mg PO DAILY #0 02/21/18 07/12/18 Rx Cholecalciferol (Vitamin D3) 2,000 unit PO DAILY 07/12/18 07/12/18 History [Vitamin D3] predniSONE 10 mg PO DAILY 07/12/18 07/12/18 History Allergies Allergy/AdvReac Type Severity Reaction Status Date / Time No Known Allergies Allergy Verified 07/12/18 12:51 Physical Exam Vitals: Vital Signs Temp Pulse Resp BP Pulse Ox 07/12/18 15:59 79 20 07/12/18 13:29 80 16 94/69 99 07/12/18 13:06 83 16 102/69 100 07/12/18 12:35 81 14 99/73 100 07/12/18 12:25 74 12 85/62 100 07/12/18 11:58 97.3 F L 84 12 109/77 100 Intake and Output 07/12/18 07/12/18 07/12/18 06:59 14:59 22:59 Other: Weight 99.79 kg Physical Exam: Revealed 82-year-old white male sedated, on mechanical ventilation, comfortable, in no distress. Head: Atraumatic, normocephalic. HEENT:[Neck is supple.] [No neck masses.] [No thyromegaly.] [No JVD.] PERRLA, EOMI, no icterus, moist mucous membranes noted. Chest: Diminished breath sound bilaterally, prolongation of expiratory phase, scattered expiratory wheezes noted. Peak airway pressure is noted to be in the high 30s, patient has a 7.5 endotracheal tube. Cardiac Exam: [Irregular irregular rhythm Normal S1 and S2, no S3 gallop, no murmur.] Abdomen: [Obese, Soft, nontender, no megaly, no rebound, no guarding, normal bowel sounds.] Extremities: [No clubbing, no edema, no cyanosis.] Neurological Exam: Cannot be assessed, patient is sedated, on propofol, pupils are equally reactive to light. Skin: No rashes. Lymphatics: No lymphadenopathy. Results - Laboratory Findings CBC and BMP: 07/12/18 14:23 07/12/18 14:23 ABG ABG pH 7.28 (7.35-7.45) L 07/12/18 12:30 ABG pCO2 86 mmHg (35-45) H* 07/12/18 12:30 ABG pO2 >400 mmHg (83-108) H 07/12/18 12:30 ABG O2 Saturation 100.0 % (94-97) H 07/12/18 12:30 PT/INR, D-dimer PT 20.8 sec (9.0-12.0) H 07/12/18 14:13 INR 2.1 (<1.2) H 07/12/18 14:13 Abnormal lab findings: Abnormal Labs 07/12/18 07/12/18 07/12/18 12:30 14:00 14:13 RBC Hgb Hct MCV Lymphocytes # PT 20.8 H INR 2.1 H ABG pH 7.28 L ABG pCO2 86 H* ABG pO2 >400 H ABG HCO3 40 H* ABG Total CO2 43 H ABG O2 Saturation 100.0 H Potassium Carbon Dioxide BUN Glucose POC Glucose (mg/dL) 133 H Total Protein 07/12/18 07/12/18 14:23 14:23 RBC 3.73 L Hgb 12.0 L Hct 38.0 L MCV 102.0 H Lymphocytes # 0.4 L PT INR ABG pH ABG pCO2 ABG pO2 ABG HCO3 ABG Total CO2 ABG O2 Saturation Potassium 5.3 H Carbon Dioxide 38 H BUN 23 H Glucose 148 H POC Glucose (mg/dL) Total Protein 6.2 L - Diagnostic Findings Chest x-ray: image reviewed (Chest x-ray showed indwelling tubes and catheters as noted and patchy density in the right suprahilar region, nonspecific, possibility of pneumonia is not entirely ruled out.) Assessment and Plan Assessment: 1 acute hypoxic/hypercapnic respiratory failure likely on the basis of COPD. Suspect an upper lobe pneumonia. Community-acquired likely. 2 advanced end-stage COPD 3 chronic hypoxic respiratory failure secondary to COPD 4 chronic atrial fibrillation, on Coumadin, subtherapeutic on admission. 5TIA, history of 6 dementia 7 hypertension 8 hyperlipidemia 9 BPH 10 osteoarthritis 11 remote history of nicotine dependence 12 history of benign prostatic hypertrophy 15 possible right upper lobe community-acquired pneumonia. Recommendation: Patient will be kept on mechanical ventilation, his ventilator settings were adjusted accordingly. Chest x-ray labs were all reviewed, ventilator mechanics were also noted, patient will remain on propofol, bronchodilators in the form of Pulmicort and DuoNeb with IV Solu-Medrol, empiric antibiotics were started, that will be in the form of Zosyn and Levaquin. Continue GI and DVT prophylaxis. Patient will be restarted on heparin instead of Coumadin for now. We will start enteral feeding later today. We'll address weaning on a daily basis. Daily interruption of sedation , and daily assessment for weaning. Updated his family members including his and his daughters at bedside on his condition. My plan is to manage the patient while he is in the ICU, and when discharged out of the ICU, will transfer the care to his account assistant Dr. Ashia guevara. Family is aware of this plan. Time with Patient: Greater than 30
[2018-07-12] MEDS ORDERED: SODIUM CHLORIDE 0.9% 1,000 ML IV ONE ×2 (16:30→19:06)
[2018-07-12] MEDS ORDERED: Phosphorus Replacement Protoco 1 EACH MISC MISCELLANE PRN (16:40)
[2018-07-12] MEDS ORDERED: HEPARIN SODIUM,PORCINE 5,000 UNIT/ML 1 ML VIAL IV PRN (16:40)
[2018-07-12] MEDS ORDERED: Magnesium Replacement Protocol 1 EACH MISC MISCELLANE PRN (16:40)
[2018-07-12] MEDS ORDERED: Potassium Replacement Protocol 1 EACH MISC MISCELLANE PRN (16:40)
[2018-07-12] MEDS ORDERED: SODIUM CHLORIDE 0.9% 1,000 ML IV SCH (17:00)
[2018-07-12 17:24] LABS: Glucose,Whole Blood 142 mg/dL (75-99)
[2018-07-12] MEDS: LEVOFLOXACIN 500MG-D5W PMX 500 MG in DEXTROSE/WATER 1 100ML.BAG IVPB SCH (18:06)
[2018-07-12] MEDS: PIPERACILLIN-TAZOBACTAM 3.375 GM in SODIUM CHLORIDE 0.9% 100 ML IVPB SCH (18:06)
[2018-07-12] MEDS: HEPARIN SOD,PORK IN 0.45% NACL 25,000 UNIT in 0.45% NACL 1 250ML.BAG IV SCH (18:06)
[2018-07-12] MEDS: methylPREDNISolone SOD SUCCI 125 MG/2 ML VIAL IV SCH (18:07)
[2018-07-12] MEDS: INSULIN ASPART 100 UNIT/ML 1 ML 10 ML VIAL SQ SCH (18:07)
[2018-07-12] MEDS: BUDESONIDE 1 MG/2 ML NEBU INHALATION SCH (19:43)
[2018-07-12 20:18] LABS: Hemoglobin A1C 5.2 % (4.0-6.0)
[2018-07-12] MEDS: SODIUM CHLORIDE 0.9% 1,000 ML IV SCH (20:34)
[2018-07-12] MEDS: CHLORHEXIDINE GLUCONATE 15 ML CUP MUCOUS MEM SCH (21:56)
--- NOTE | 2018-07-12 23:14 | HP ---
HISTORY AND PHYSICAL CHIEF COMPLAINT: Shortness of breath. HISTORY OF PRESENT ILLNESS: This 82 -year-old gentleman with past medical history of COPD, history of atrial fibrillation, CAD, CHF, CVA, TIA, diabetes, dementia, hypertension, hyperlipidemia, DJD, history of prostate disorder being followed by in the outpatient setting, was not feeling well over the past several days. Patient went to [facility] yesterday and the patient went home and subsequently patient had shortness of breath and difficulty speaking this morning and the took the patient to [facility] and transferred directly to [facility]. The patient admitted to the hospital for further evaluation and treatment. A chest x-ray done in the ER which was personally reviewed by me showed evidence with some increased bronchovascular markings, otherwise no acute findings are not noted. The patient is mechanically intubated. Patient monitored in ICU at this time. There is no history of fever , rigors. because the patient is mechanically intubated. Patient's pCO2 was 86, pH of 7.38, and PO2 was more than 400. PAST MEDICAL HISTORY: Past medical history of COPD, CHF, history of CVA, TIA, dementia, hyperlipidemia , DJD, pneumonia, prostate rheumatoid arthritis, chronic hypoxic respiratory failure. MEDICATIONS: Prior to admission include home medications are: 1. Coumadin 2.5 mg daily. 2. Vitamin B1 100 mg daily. 3. Protonix 40 mg daily. 4. Singulair 10 mg q.h.s. 5. Namenda 10 mg at bedtime. 6. DuoNeb q.i.d. 7. Lasix 40 mg daily. 8. Folic acid 1 mg daily. 9. Vitamin B12 500 mcg. 10.Vitamin D3 2000 daily. 11.Pulmicort 1-2 puffs b.i.d. 13.Prednisone 10 mg p.o. daily. 14.Tenormin 250 mg q.h.s. ALLERGIES: None. FAMILY HISTORY: History of CHF, COPD, emphysema. SOCIAL HISTORY: History of previous history of smoking. Occasional alcohol intake. REVIEW OF SYSTEMS: Could not be taken as the patient is mechanically intubated. PHYSICAL EXAM: Patient is mechanically intubated. The vent settings are noted. Pulse 89, blood pressure 101/60, respiratory rate 20. Temperature normal. Pulse ox 94% on 40% FiO2. Chest: Conjunctivae normal. Oral mucosa moist. Neck is no jugular venous distention. No carotid bruit. No lymph node enlargement. Cardiovascular system: S1, S2. No S3, no S4. RESPIRATORY: Breath sounds diminished in the bases. Breathing efforts increased. Patient mechanically ventilated and sedated. Bilateral scattered rhonchi, expiratory rhonchi. Chest emphysematous. ABDOMEN: Soft, nontender. No mass palpable. Legs: No edema. No swelling. Central nervous system: The patient mechanically ventilated and sedated. Skin: No ulcers, rash or bleeding. Joints: No active deforming arthropathy. LABS: WBC 8.2, hemoglobin is 12, INR 2.1. ABGs noted. Sodium 140, potassium 5.3, glucose 142. ASSESSMENT: 1. Chronic obstructive pulmonary disease acute exacerbation with acute tracheobronchitis with acute hypoxic hypercarbic respiratory failure on mechanical ventilation. 2. Acute respiratory acidosis. 3. Anemia of chronic disease. 4. Mild hyperkalemia. 5. History of congestive heart failure. 6. History of atrial fibrillation. 7. Coumadin monitoring. 8. History of cerebrovascular accident, transient ischemic attack. 9. Dementia, hypertension, hyperlipidemia, history of DJD, history of pneumonia, history of rheumatoid arthritis. History of chronic hypoxic respiratory failure on 2 L home O2. 10.History of prostate surgery. RECOMMENDATIONS AND DISCUSSION: This 82-year-old gentleman who presented with multiple medical issues, at this time I recommend to continue current medications, management and symptomatic treatment. Continue with the mechanical ventilation. Otherwise, continue with empiric antibiotics, IV steroids, monitor blood sugars closely. Prognosis extremely guarded because of multiple complex medical issues. Further recommendations to follow. A copy of dictation being forwarded to Dr. Nicole who is the primary physician. MMODL / IJN: [id number] / [facility]ITALAngi
[2018-07-12 23:33] LABS: Glucose,Whole Blood 127 mg/dL (75-99)
[2018-07-13] MEDS: PIPERACILLIN-TAZOBACTAM 3.375 GM in SODIUM CHLORIDE 0.9% 100 ML IVPB SCH ×3 (00:31→16:42)
[2018-07-13] MEDS: methylPREDNISolone SOD SUCCI 125 MG/2 ML VIAL IV SCH ×4 (00:31→18:36)
[2018-07-13] MEDS: INSULIN ASPART 100 UNIT/ML 1 ML 10 ML VIAL SQ SCH ×4 (00:32→18:36)
[2018-07-13] MEDS: PROPOFOL 1,000 MG in EMPTY BAG 1 BAG IV SCH ×4 (01:58→20:59)
[2018-07-13] MEDS: IPRATROPIUM-ALBUTEROL 3 ML NEB INHALATION SCH ×5 (03:17→20:10)
[2018-07-13 05:43] LABS: HCT 35.6 % (39.0-53.0); HGB 11.5 gm/dL (13.0-17.5); MCH 32.9 pg (25.0-35.0); MCHC 32.3 g/dL (31.0-37.0); Macrocytosis Slight; Mean Platelet Volume 7.9; Platelet Count 154 k/uL (150-450); RBC 3.49 m/uL (4.30-5.90); RDW 14.3 % (11.5-15.5); WBC 5.8 k/uL (3.8-10.6)
[2018-07-13] MEDS: SODIUM CHLORIDE 0.9% 1,000 ML IV SCH ×2 (06:19→16:43)
[2018-07-13 06:25] LABS: Anion Gap 4 mmol/L; Blood Urea Nitrogen 26 mg/dL (9-20); Calcium 8.7 mg/dL (8.4-10.2); Carbon Dioxide 34 mmol/L (22-30); Chloride 105 mmol/L (98-107); Glucose 160 mg/dL (74-99); Magnesium 2.2 mg/dL (1.6-2.3); Phosphorus 3.7 mg/dL (2.5-4.5); Potassium 4.2 mmol/L (3.5-5.1); Sodium 143 mmol/L (137-145)
--- NOTE | 2018-07-13 07:09 | XR ---
EXAMINATION TYPE: XR chest 1V portable DATE OF EXAM: 07/13/2018 HISTORY: Tube placement. REFERENCE: Previous study dated 07/12/2018. FINDINGS: The patient remains intubated. An NG tube is present but its tip is not identified. The lungs are overinflated. The heart is mildly enlarged. Patchy right suprahilar density is not prog ressed. Pleural spaces are clear. IMPRESSION: 1. COPD. 2. NO DEFINITE PNEUMONIA IS SEEN AT THIS TIME.
[2018-07-13] MEDS: BUDESONIDE 1 MG/2 ML NEBU INHALATION SCH ×2 (07:21→20:10)
[2018-07-13 07:29] LABS: ABG Base Excess 9.6 mmol/L; ABG HCO3 35 mmol/L (21-25); ABG Oxygen Saturation 98.3 % (94-97); ABG PCO2 61 mmHg (35-45); ABG PH 7.37 (7.35-7.45); ABG PO2 92 mmHg (83-108); ABG TCO2 37 mmol/L (19-24)
[2018-07-13] MEDS: PANTOPRAZOLE 40 MG/10 ML VIAL IV SCH (09:03)
[2018-07-13] MEDS: CHLORHEXIDINE GLUCONATE 15 ML CUP MUCOUS MEM SCH ×2 (09:03→20:49)
--- NOTE | 2018-07-13 11:39 | P.PN ---
Subjective Progress Note Date: 07/13/18 Principal diagnosis: Acute hypoxic and hypercapnic respiratory failure secondary to COPD exacerbation requiring intubation and mechanical ventilation This is an 82-year-old white male with history of severe COPD, patient was actually a transfer from [facility], he presented earlier today with acute exacerbation of COPD, and acute hypercapnic respiratory failure requiring intubation and mechanical ventilation. Patient was transferred to our facility for further treatment. Apparently he was in the ER yesterday complaining of cough wheezing and shortness of breath, patient was given the option of being admitted to the hospital or discharge home. Patient chose to go home on oral antibiotics and steroids, but apparently that was a bad choice. When he was seen again in the ER today, patient was in extreme respiratory distress, intubated, placed on mechanical ventilation, and transferred to our facility. Back on 02/15/2018, patient was actually admitted to our facility with a similar presentation. And he was seen at the time by Dr. Simms. Patient was on mechanical ventilation for 3 days. And he was eventually extubated and discharged home. Going back to a history of COPD, patient clearly has history of advanced COPD, oxygen dependent, maintained normally on Pulmicort Respules and DuoNeb updrafts 4 times a day and when necessary. He normally sees S/P ismael for his COPD on outpatient basis. Chest x-ray showed increased interstitial markings especially in the right perihilar area. No clear-cut evidence of infiltrate. Looking at his ventilator settings, he is presently on tidal volume of 450, assist control rate of 20, FiO2 of 50% which is titrated down based on O2 saturation, PEEP of 5. Patient has a 7.5 endotracheal tube. He is on propofol at 5 mcg/kg/m, not requiring any pressors at this point, he is also on IV fluid at 125 mL per hour which I cut down. I have also started the patient on antibiotics in the form of Zosyn and Levaquin, I have recommended that we continue his updrafts, steroids, and placed on heparin since he is normally on Coumadin. Known to have history of chronic atrial fibrillation. According to the family, the patient has been ill only for the last couple of days. Patient was reevaluated today on 07/13/2018, patient remains on mechanical ventilation, remains in the ICU, his ventilator settings are basically the same , assist control rate of 20, tidal volume of 450, FiO2 of 40%, and PEEP of 5. Patient remains on propofol at 36 mcg/kg/m, not requiring any pressors, fully sedated, had issues with the urine output last night, however he responded well to fluid boluses, and we increased his IV fluid to 100 mL per hour. Remains on antibiotics, chest x-ray showed clearance of the opacity in the right perihilar area. Peak airway pressure is in the mid 30s, plateau pressures is about 21. ABG this morning showed a pO2 of 92 pCO2 of 61 pH of 7.37. Electrolytes and renal profile were noted. CBC is relatively normal, hemoglobin is 11.5, PTT is therapeutic, patient is on heparin because he is normally on Coumadin at home for chronic atrial fibrillation. Objective - Vital Signs Vital signs: Vital Signs Temp 98.0 F 07/13/18 08:00 Pulse 90 07/13/18 10:00 Resp 20 07/13/18 10:00 BP 106/62 07/13/18 10:00 Pulse Ox 95 07/13/18 10:00 Intake & Output 07/12/18 07/13/18 07/13/18 18:59 06:59 18:59 Intake Total 1777.973 9519.605 400 Output Total 325 585 126 Balance 5924.525 7818.605 274 Weight 99.79 kg 96 kg Intake: IV 1300 400 Piperacillin-Tazobactam 3 100 100 .375 gm In Sodium Chloride 0.9% 100 ml @ 25 mls/hr IVPB Q8HR [facility] Rx# :[id number] Sodium Chloride 0.9% 1, 1200 300 000 ml @ 100 mls/hr IV . Q10H [facility] Rx#:[id number] Intake, IV Titration 6852.449 9758.605 Amount Levofloxacin 500Mg-D5w 100 Pmx 500 mg In Dextrose/ Water 1 100ml.bag @ 100 mls/hr IVPB Q24H [facility] Rx#: [id number] Piperacillin-Tazobactam 3 100 .375 gm In Sodium Chloride 0.9% 100 ml @ 25 mls/hr IVPB Q8HR [facility] Rx# :[id number] Propofol 1,000 mg In 11.518 185.605 Empty Bag 1 bag @ Titrate IV .Q0M [facility] Rx#: [id number] Sodium Chloride 0.9% 1, 460 000 ml @ 70 mls/hr IV . [id number] [facility] Rx#:[id number] Sodium Chloride 0.9% 1, 1000 1000 000 ml @ 999 mls/hr IV . Q1H1M ONE Rx#:[id number] Output: Urine 325 585 126 Other: Voiding Method Indwelling Catheter Indwelling Catheter - Exam Physical Exam: Revealed 82-year-old white male sedated, on mechanical ventilation, comfortable, in no distress. Head: Atraumatic, normocephalic. HEENT:[Neck is supple.] [No neck masses.] [No thyromegaly.] [No JVD.] PERRLA, EOMI, no icterus, moist mucous membranes noted. Chest: Diminished breath sound bilaterally, prolongation of expiratory phase, scattered expiratory wheezes noted. Peak airway pressure is noted to be in the high 30s, patient has a 7.5 endotracheal tube. Cardiac Exam: [Irregular irregular rhythm Normal S1 and S2, no S3 gallop, no murmur.] Abdomen: [Obese, Soft, nontender, no megaly, no rebound, no guarding, normal bowel sounds.] Extremities: [No clubbing, no edema, no cyanosis.] Neurological Exam: Cannot be assessed, patient is sedated, on propofol, pupils are equally reactive to light. Skin: No rashes. Lymphatics: No lymphadenopathy. - Labs CBC & Chem 7: 07/13/18 05:20 07/13/18 05:20 Labs: Abnormal Lab Results - Last 24 Hours (Table) 07/12/18 07/12/18 07/12/18 Range/Units 12:30 14:00 14:13 RBC (4.30-5.90) m/uL Hgb (13.0-17.5) gm/dL Hct (39.0-53.0) % MCV (80.0-100.0) fL Lymphocytes # (1.0-4.8) k/uL PT 20.8 H (9.0-12.0) sec INR 2.1 H (<1.2) APTT (22.0-30.0) sec ABG pH 7.28 L (7.35-7.45) ABG pCO2 86 H* (35-45) mmHg ABG pO2 >400 H (83-108) mmHg ABG HCO3 40 H* (21-25) mmol/L ABG Total CO2 43 H (19-24) mmol/L ABG O2 Saturation 100.0 H (94-97) % Potassium (3.5-5.1) mmol/L Carbon Dioxide (22-30) mmol/L BUN (9-20) mg/dL Glucose (74-99) mg/dL POC Glucose (mg/dL) 133 H (75-99) mg/dL Total Protein (6.3-8.2) g/dL 07/12/18 07/12/18 07/12/18 Range/Units 14:23 14:23 17:02 RBC 3.73 L (4.30-5.90) m/uL Hgb 12.0 L (13.0-17.5) gm/dL Hct 38.0 L (39.0-53.0) % MCV 102.0 H (80.0-100.0) fL Lymphocytes # 0.4 L (1.0-4.8) k/uL PT (9.0-12.0) sec INR (<1.2) APTT (22.0-30.0) sec ABG pH (7.35-7.45) ABG pCO2 (35-45) mmHg ABG pO2 (83-108) mmHg ABG HCO3 (21-25) mmol/L ABG Total CO2 (19-24) mmol/L ABG O2 Saturation (94-97) % Potassium 5.3 H (3.5-5.1) mmol/L Carbon Dioxide 38 H (22-30) mmol/L BUN 23 H (9-20) mg/dL Glucose 148 H (74-99) mg/dL POC Glucose (mg/dL) 142 H (75-99) mg/dL Total Protein 6.2 L (6.3-8.2) g/dL 07/12/18 07/12/18 07/13/18 Range/Units 23:20 23:43 05:20 RBC 3.49 L (4.30-5.90) m/uL Hgb 11.5 L (13.0-17.5) gm/dL Hct 35.6 L (39.0-53.0) % MCV 102.0 H (80.0-100.0) fL Lymphocytes # (1.0-4.8) k/uL PT (9.0-12.0) sec INR (<1.2) APTT 51.1 H (22.0-30.0) sec ABG pH (7.35-7.45) ABG pCO2 (35-45) mmHg ABG pO2 (83-108) mmHg ABG HCO3 (21-25) mmol/L ABG Total CO2 (19-24) mmol/L ABG O2 Saturation (94-97) % Potassium (3.5-5.1) mmol/L Carbon Dioxide (22-30) mmol/L BUN (9-20) mg/dL Glucose (74-99) mg/dL POC Glucose (mg/dL) 127 H (75-99) mg/dL Total Protein (6.3-8.2) g/dL 07/13/18 07/13/18 07/13/18 Range/Units 05:20 05:20 07:29 RBC (4.30-5.90) m/uL Hgb (13.0-17.5) gm/dL Hct (39.0-53.0) % MCV (80.0-100.0) fL Lymphocytes # (1.0-4.8) k/uL PT (9.0-12.0) sec INR (<1.2) APTT 64.3 H (22.0-30.0) sec ABG pH (7.35-7.45) ABG pCO2 61 H (35-45) mmHg ABG pO2 (83-108) mmHg ABG HCO3 35 H (21-25) mmol/L ABG Total CO2 37 H (19-24) mmol/L ABG O2 Saturation 98.3 H (94-97) % Potassium (3.5-5.1) mmol/L Carbon Dioxide 34 H (22-30) mmol/L BUN 26 H (9-20) mg/dL Glucose 160 H (74-99) mg/dL POC Glucose (mg/dL) (75-99) mg/dL Total Protein (6.3-8.2) g/dL Microbiology - Last 24 Hours (Table) 07/12/18 12:57 Gram Stain - Preliminary Sputum Sputum Culture - Preliminary Assessment and Plan Assessment: 1 acute on chronic hypoxic/hypercapnic respiratory failure likely on the basis of COPD. Suspect an upper lobe pneumonia. Community-acquired likely. Although the chest x-ray showed significant improvement today compared to the chest x-ray done yesterday. 2 advanced end-stage COPD 3 chronic hypoxic respiratory failure secondary to COPD 4 chronic atrial fibrillation, on Coumadin, subtherapeutic on admission. 5TIA, history of 6 dementia 7 hypertension 8 hyperlipidemia 9 BPH 10 osteoarthritis 11 remote history of nicotine dependence 12 history of benign prostatic hypertrophy 15 possible right upper lobe community-acquired pneumonia. Chest x-ray today seems to be is more reassuring. Recommendation: Continue mechanical ventilation, continue nutritional support, bronchodilators, antibiotics, steroids, GI prophylaxis, heparin for atrial fibrillation, patient would have interruption of sedation today, and brief assessment, however I strongly doubt if he is ready to be weaned at this point. Family is at bedside, updated on his condition. Patient will remain in the ICU, he remains critically ill, and I plan to continue to manage the patient in the ICU. Critical care time is 35 minutes. Time with Patient: Greater than 30
[2018-07-13 11:59] LABS: Glucose,Whole Blood 141 mg/dL (75-99)
[2018-07-13 12:24] LABS: RBC,Urine 23 /hpf (0-5); WBC,Urine 3 /hpf (0-5)
[2018-07-13 12:25] LABS: Appearance,Urine Turbid (Clear); Bilirubin,Urine Negative (Negative); Blood,Urine Large (Negative); Color,Urine Yellow; Glucose,Urine (UA) Negative (Negative); Ketones,Urine Negative (Negative); Leukocyte Esterase,Urine Negative (Negative); Nitrite,Urine Negative (Negative); Protein,Urine 1+ (Negative); Specific Gravity,Urine 1.027 (1.001-1.035); Urobilinogen,Urine <2.0 mg/dL (<2.0)
[2018-07-13] MEDS: LEVOFLOXACIN 500MG-D5W PMX 500 MG in DEXTROSE/WATER 1 100ML.BAG IVPB SCH (16:42)
[2018-07-13] MEDS: HEPARIN SOD,PORK IN 0.45% NACL 25,000 UNIT in 0.45% NACL 1 250ML.BAG IV SCH (18:32)
[2018-07-13 18:35] LABS: Glucose,Whole Blood 180 mg/dL (75-99)
--- NOTE | 2018-07-13 21:06 | PN ---
PROGRESS NOTE DATE OF SERVICE: 07/13/2018 This 82-year-old gentleman who was admitted with COPD acute exacerbation also had acute respiratory failure, also had features of possibly acute purulent tracheobronchitis. The patient also has acute respiratory acidosis. Patient mechanically ventilated and sedated. Dr. Yañez is following the patient closely. Patient on DVT prophylaxis and proton pump inhibitors. Most recent chest x-ray reviewed by me. PAST MEDICAL HISTORY: History of depression. REVIEW OF SYSTEMS: Could not be taken because the patient mechanically ventilated and sedated. CURRENT MEDICATIONS: 1. DuoNeb q.i.d. and p.r.n. 2. Pulmicort 1 mg b.i.d. 3. Peridex 15 mL b.i.d. 4. Heparin protocol. 5. NovoLog scale. 6. Levaquin. 7. Solu-Medrol. 8. Replacement protocols. 9. Zosyn IV. PHYSICAL EXAM: The patient is mechanically sedated. Pulse is 118. Blood pressure 118/72. Respirations 17. Temperature normal. Pulse ox 96% on 40% FiO2. HEENT: Conjunctivae normal. NECK: No jugular venous distention. CARDIOVASCULAR: S1, S2 muffled. RESPIRATORY: Breath sounds diminished in the bases. A few scattered rhonchi and crackles. ABDOMEN is soft, obese. LEGS: No edema. No swelling. CENTRAL NERVOUS SYSTEM: No focal deficits. LABS: At this time shows WBC 5.5. Hemoglobin 11.5. Other labs are noted. PCO2 of 61. ASSESSMENT: 1. Chronic obstructive pulmonary disease acute exacerbation with acute purulent tracheobronchitis with acute hypoxic hypercarbic respiratory failure on mechanical ventilation. 2. Acute respiratory acidosis. 3. Anemia of chronic disease. 4. Acute hyperkalemia. 5. History of congestive heart failure. 6. History of atrial ablation. 7. Pulmonary coagulopathy and Coumadin monitoring. 8. History of cerebrovascular accident, transient ischemic attack. 9. Dementia. 10.Hypertension. 11.Hyperlipidemia. 12.History of degenerative joint disease. 13.History of pneumonia. 14.History rheumatoid arthritis. 15.History of chronic hypoxic respiratory failure, on 2 L O2 home. 16.History of prostate surgery. RECOMMENDATIONS AND DISCUSSION: Recommend to continue current medications, continue with monitoring, symptomatic treatment. Closely monitor. Guarded prognosis. Further recommendations recommendations to follow. Otherwise continue the antibiotics. Weaning per pulmonary. Repeat labs. Follow the cultures. Further recommendations to follow. MMODL / IJN: [id number] /
[2018-07-14 00:05] LABS: Glucose,Whole Blood 153 mg/dL (75-99)
[2018-07-14] MEDS: INSULIN ASPART 100 UNIT/ML 1 ML 10 ML VIAL SQ SCH ×5 (00:10→23:58)
[2018-07-14] MEDS: methylPREDNISolone SOD SUCCI 125 MG/2 ML VIAL IV SCH ×5 (00:10→23:59)
[2018-07-14] MEDS: PIPERACILLIN-TAZOBACTAM 3.375 GM in SODIUM CHLORIDE 0.9% 100 ML IVPB SCH ×4 (00:11→23:59)
[2018-07-14] MEDS: IPRATROPIUM-ALBUTEROL 3 ML NEB INHALATION SCH ×7 (00:55→23:31)
[2018-07-14] MEDS: PROPOFOL 1,000 MG in EMPTY BAG 1 BAG IV SCH ×3 (02:47→21:23)
[2018-07-14] MEDS: SODIUM CHLORIDE 0.9% 1,000 ML IV SCH ×3 (05:19→23:59)
[2018-07-14 06:01] LABS: Glucose,Whole Blood 160 mg/dL (75-99)
[2018-07-14 06:03] LABS: HCT 37.6 % (39.0-53.0); HGB 11.7 gm/dL (13.0-17.5); MCH 32.6 pg (25.0-35.0); MCV 105.2 fL (80.0-100.0); Macrocytosis Moderate; Mean Platelet Volume 7.8; Platelet Count 138 k/uL (150-450); RBC 3.58 m/uL (4.30-5.90); RDW 14.2 % (11.5-15.5)
[2018-07-14 06:12] LABS: INR 2.9 (<1.2); Prothrombin Time 27.6 sec (9.0-12.0)
[2018-07-14 06:21] LABS: Anion Gap 4 mmol/L; Blood Urea Nitrogen 26 mg/dL (9-20); Calcium 8.5 mg/dL (8.4-10.2); Carbon Dioxide 30 mmol/L (22-30); Chloride 108 mmol/L (98-107); Glucose 176 mg/dL (74-99); Magnesium 2.6 mg/dL (1.6-2.3); Phosphorus 2.9 mg/dL (2.5-4.5); Potassium 4.5 mmol/L (3.5-5.1); Sodium 142 mmol/L (137-145)
--- NOTE | 2018-07-14 07:05 | XR ---
EXAMINATION TYPE: XR chest 1V portable DATE OF EXAM: 07/14/2018 HISTORY: Tube placement. REFERENCE: Previous study dated 07/13/2018. FINDINGS: Lung volumes are prominent. The heart is enlarged. There is vascular congestion and subtle interstitial change. No definite pleural fluid is seen. IMPRESSION: 1. COPD. 2. FINDINGS CONSISTENT WITH MILD HEART FAILURE.
[2018-07-14 07:34] LABS: ABG Base Excess 10.5 mmol/L; ABG HCO3 36 mmol/L (21-25); ABG Oxygen Saturation 99.1 % (94-97); ABG PCO2 65 mmHg (35-45); ABG PH 7.35 (7.35-7.45); ABG PO2 107 mmHg (83-108); ABG TCO2 38 mmol/L (19-24)
[2018-07-14] MEDS: BUDESONIDE 1 MG/2 ML NEBU INHALATION SCH ×2 (08:14→20:29)
[2018-07-14] MEDS: CHLORHEXIDINE GLUCONATE 15 ML CUP MUCOUS MEM SCH ×2 (08:39→21:23)
[2018-07-14] MEDS: PANTOPRAZOLE 40 MG/10 ML VIAL IV SCH (08:39)
[2018-07-14 11:56] LABS: Glucose,Whole Blood 186 mg/dL (75-99)
--- NOTE | 2018-07-14 14:06 | P.PN ---
Subjective Progress Note Date: 07/14/18 Principal diagnosis: Acute hypoxic and hypercapnic respiratory failure secondary to COPD exacerbation requiring intubation and mechanical ventilation This is an 82-year-old white male with history of severe COPD, patient was actually a transfer from [facility], he presented earlier today with acute exacerbation of COPD, and acute hypercapnic respiratory failure requiring intubation and mechanical ventilation. Patient was transferred to our facility for further treatment. Apparently he was in the ER yesterday complaining of cough wheezing and shortness of breath, patient was given the option of being admitted to the hospital or discharge home. Patient chose to go home on oral antibiotics and steroids, but apparently that was a bad choice. When he was seen again in the ER today, patient was in extreme respiratory distress, intubated, placed on mechanical ventilation, and transferred to our facility. Back on 02/15/2018, patient was actually admitted to our facility with a similar presentation. And he was seen at the time by Dr. Simms. Patient was on mechanical ventilation for 3 days. And he was eventually extubated and discharged home. Going back to a history of COPD, patient clearly has history of advanced COPD, oxygen dependent, maintained normally on Pulmicort Respules and DuoNeb updrafts 4 times a day and when necessary. He normally sees S/P ismael for his COPD on outpatient basis. Chest x-ray showed increased interstitial markings especially in the right perihilar area. No clear-cut evidence of infiltrate. Looking at his ventilator settings, he is presently on tidal volume of 450, assist control rate of 20, FiO2 of 50% which is titrated down based on O2 saturation, PEEP of 5. Patient has a 7.5 endotracheal tube. He is on propofol at 5 mcg/kg/m, not requiring any pressors at this point, he is also on IV fluid at 125 mL per hour which I cut down. I have also started the patient on antibiotics in the form of Zosyn and Levaquin, I have recommended that we continue his updrafts, steroids, and placed on heparin since he is normally on Coumadin. Known to have history of chronic atrial fibrillation. According to the family, the patient has been ill only for the last couple of days. Patient was reevaluated today on 07/13/2018, patient remains on mechanical ventilation, remains in the ICU, his ventilator settings are basically the same , assist control rate of 20, tidal volume of 450, FiO2 of 40%, and PEEP of 5. Patient remains on propofol at 36 mcg/kg/m, not requiring any pressors, fully sedated, had issues with the urine output last night, however he responded well to fluid boluses, and we increased his IV fluid to 100 mL per hour. Remains on antibiotics, chest x-ray showed clearance of the opacity in the right perihilar area. Peak airway pressure is in the mid 30s, plateau pressures is about 21. ABG this morning showed a pO2 of 92 pCO2 of 61 pH of 7.37. Electrolytes and renal profile were noted. CBC is relatively normal, hemoglobin is 11.5, PTT is therapeutic, patient is on heparin because he is normally on Coumadin at home for chronic atrial fibrillation. Reevaluated today on 07/14/2018, patient remains on mechanical ventilation, remains in the ICU. His ventilator settings are assist control rate of 20 tidal volume of 450 FiO2 of 35%, PEEP of 5. Peak airway pressure is 34, plateau pressure is 21. ABG showed a pO2 of 107 pCO2 of 65 pH of 7.35, hence cut down his FiO2 down to 35%. Propofol was tapered down, and the patient was noted to be responsive, following simple instructions. However on physical examination continues to have significant rhonchi and wheezes, and I felt there is no possible way that the patient could be weaned and extubated today. Hence recommending increasing the dose of the propofol, and keep the patient on mechanical ventilation. Reviewed all his meds, discussed his condition with family, and made aware that he is not ready for weaning and extubation at this point. Patient clearly has severe underlying COPD, and his baseline pCO2 is probably in the 60s. Chest x-ray showed minimal prominence of the pulmonary vasculature, hence may cut down the IV fluids and recommend a gentle diuresis on the patient CBC as well as basic metabolic profile noted to be normal. Objective - Vital Signs Vital signs: Vital Signs Temp 98.4 F 07/14/18 08:00 Pulse 105 H 07/14/18 11:32 Resp 22 07/14/18 11:00 BP 102/63 07/14/18 11:00 Pulse Ox 95 07/14/18 11:00 Intake & Output 07/13/18 07/14/18 07/14/18 18:59 06:59 18:59 Intake Total 9171.330 5817 900 Output Total 426 640 260 Balance 9956.916 2879 640 Weight 96 kg Intake: IV 1400 1200 600 Levofloxacin 500Mg-D5w 100 Pmx 500 mg In Dextrose/ Water 1 100ml.bag @ 100 mls/hr IVPB Q24H [facility] Rx#: [id number] Piperacillin-Tazobactam 3 200 100 100 .375 gm In Sodium Chloride 0.9% 100 ml @ 25 mls/hr IVPB Q8HR [facility] Rx# :[id number] Sodium Chloride 0.9% 1, 1100 1100 500 000 ml @ 100 mls/hr IV . Q10H [facility] Rx#:[id number] Intake, IV Titration 444.333 100 100 Amount Heparin Sod,Pork in 0.45% 244.333 NaCl 25,000 unit In 0.45 % NaCl 1 250ml.bag @ 10. 022 UNITS/KG/HR 10 mls/hr IV .Q24H [facility] Rx#: [id number] Propofol 1,000 mg In 200 100 100 Empty Bag 1 bag @ Titrate IV .Q0M [facility] Rx#: [id number] Tube Feeding 20 490 200 Other 90 Output: Urine 426 640 260 Other: Voiding Method Indwelling Catheter Indwelling Catheter Indwelling Catheter - Exam Physical Exam: Revealed 82-year-old white male sedated, on mechanical ventilation, comfortable, in no distress. Head: Atraumatic, normocephalic. HEENT:[Neck is supple.] [No neck masses.] [No thyromegaly.] [No JVD.] PERRLA, EOMI, no icterus, moist mucous membranes noted. Chest: Diminished breath sound bilaterally, prolongation of expiratory phase, scattered expiratory wheezes noted. Cardiac Exam: [Irregular irregular rhythm Normal S1 and S2, no S3 gallop, no murmur.] Abdomen: [Obese, Soft, nontender, no megaly, no rebound, no guarding, normal bowel sounds.] Extremities: [No clubbing, no edema, no cyanosis.] Neurological Exam: Arousable, followed simple instructions. However remains on propofol. Skin: No rashes. Lymphatics: No lymphadenopathy. - Labs CBC & Chem 7: 07/14/18 05:29 07/14/18 05:29 Labs: Abnormal Lab Results - Last 24 Hours (Table) 01/11/2407/14/18 07/14/18 Range/Units 18:33 00:02 05:29 RBC 3.58 L (4.30-5.90) m/uL Hgb 11.7 L (13.0-17.5) gm/dL Hct 37.6 L (39.0-53.0) % MCV 105.2 H (80.0-100.0) fL Plt Count 138 L (150-450) k/uL PT (9.0-12.0) sec INR (<1.2) APTT (22.0-30.0) sec ABG pCO2 (35-45) mmHg ABG HCO3 (21-25) mmol/L ABG Total CO2 (19-24) mmol/L ABG O2 Saturation (94-97) % Chloride (98-107) mmol/L BUN (9-20) mg/dL Creatinine (0.66-1.25) mg/dL Glucose (74-99) mg/dL POC Glucose (mg/dL) 180 H 153 H (75-99) mg/dL Magnesium (1.6-2.3) mg/dL 07/14/18 07/14/18 07/14/18 Range/Units 05:29 05:29 05:48 RBC (4.30-5.90) m/uL Hgb (13.0-17.5) gm/dL Hct (39.0-53.0) % MCV (80.0-100.0) fL Plt Count (150-450) k/uL PT 27.6 H (9.0-12.0) sec INR 2.9 H (<1.2) APTT 60.0 H (22.0-30.0) sec ABG pCO2 (35-45) mmHg ABG HCO3 (21-25) mmol/L ABG Total CO2 (19-24) mmol/L ABG O2 Saturation (94-97) % Chloride 108 H (98-107) mmol/L BUN 26 H (9-20) mg/dL Creatinine 0.65 L (0.66-1.25) mg/dL Glucose 176 H (74-99) mg/dL POC Glucose (mg/dL) 160 H (75-99) mg/dL Magnesium 2.6 H (1.6-2.3) mg/dL 07/14/18 07/14/18 Range/Units 07:26 11:54 RBC (4.30-5.90) m/uL Hgb (13.0-17.5) gm/dL Hct (39.0-53.0) % MCV (80.0-100.0) fL Plt Count (150-450) k/uL PT (9.0-12.0) sec INR (<1.2) APTT (22.0-30.0) sec ABG pCO2 65 H (35-45) mmHg ABG HCO3 36 H (21-25) mmol/L ABG Total CO2 38 H (19-24) mmol/L ABG O2 Saturation 99.1 H (94-97) % Chloride (98-107) mmol/L BUN (9-20) mg/dL Creatinine (0.66-1.25) mg/dL Glucose (74-99) mg/dL POC Glucose (mg/dL) 186 H (75-99) mg/dL Magnesium (1.6-2.3) mg/dL Microbiology - Last 24 Hours (Table) 07/13/18 11:30 Urine Culture - Final Urine,Catheterized 07/12/18 12:57 Gram Stain - Final Sputum Sputum Culture - Final Assessment and Plan Assessment: 1 acute on chronic hypoxic/hypercapnic respiratory failure likely on the basis of COPD. Suspect an upper lobe pneumonia. Community-acquired likely. Although the chest x-ray showed significant improvement today compared to the chest x-ray done yesterday. 2 advanced end-stage COPD 3 chronic hypoxic respiratory failure secondary to COPD 4 chronic atrial fibrillation, on Coumadin, subtherapeutic on admission. 5TIA, history of 6 dementia 7 hypertension 8 hyperlipidemia 9 BPH 10 osteoarthritis 11 remote history of nicotine dependence 12 history of benign prostatic hypertrophy 15 possible right upper lobe community-acquired pneumonia. Chest x-ray today seems to be is more reassuring. 16 mild prominence of the pulmonary vasculature on the chest x-ray today, findings are nonspecific, however the patient may improve with gentle diuresis. Recommendation: Continue mechanical ventilation, continue nutritional support, bronchodilators, antibiotics, steroids, GI prophylaxis, heparin for atrial fibrillation, continue daily assessment for weaning, diurese today, cut down the IV fluid, clearly today the patient is not ready for weaning and extubation , family updated on his condition, we'll continue to follow. Critical care time is 40 minutes. Time with Patient: Greater than 30
[2018-07-14] MEDS: FUROSEMIDE 10 MG/ML 2 ML VIAL IV SCH ×2 (15:21→21:15)
[2018-07-14] MEDS: LEVOFLOXACIN 500MG-D5W PMX 500 MG in DEXTROSE/WATER 1 100ML.BAG IVPB SCH (16:43)
[2018-07-14] MEDS: HEPARIN SOD,PORK IN 0.45% NACL 25,000 UNIT in 0.45% NACL 1 250ML.BAG IV SCH (17:37)
[2018-07-14 18:00] LABS: Glucose,Whole Blood 186 mg/dL (75-99)
--- NOTE | 2018-07-14 19:37 | PN ---
PROGRESS NOTE DATE OF SERVICE: 07/14/2017 This 82 -year-old gentleman admitted with COPD exacerbation also with acute purulent tracheobronchitis also had acute hypoxic respiratory failure. Patient on mechanical ventilation. The patient is being closely monitored. Weaning attempts are not performed today. Dr. Yañez is following the patient closely. The most recent chest x- ray which I reviewed personally showed bilateral upper lobe lesions with possible congestive heart failure. The patient was given intravenous diuretics at this time. Dr. Yañez is following the patient closely. A 2D echo done about 2 months ago showed evidence of ejection fraction more than 55% and mild valvular abnormalities also. No chest pain. No palpitations. No fever. PAST MEDICAL HISTORY: Reviewed. REVIEW OF SYSTEMS: Could not be taken. The patient is mechanically intubated. CURRENT MEDICATIONS ARE: 1. DuoNeb q.i.d. 2. Pulmicort 1 mg b.i.d. 3. Peridex 15 mL b.i.d. 4. Lasix 20 mg b.i.d. 5. Heparin drip. 6. NovoLog. 7. Levaquin 500 mg daily. 8. Solu-Medrol 60 IV q.6h. 9. Magnesium replacement protocol. 10.Protonix 40 daily. 11.Zosyn 3.375 IV q.6h. PHYSICAL EXAM: The patient is mechanically sedated. Pulse is 82. Blood pressure 113/75. Respiratory rate 20. Temperature normal. Pulse ox 95 percent on 40% FiO2. Vent settings are noted. HEENT: Conjunctivae normal. NECK: No jugular venous distention. CARDIOVASCULAR: S1, S2 muffled. RESPIRATORY: Breath sounds diminished in the bases. Bilateral scattered rhonchi and crackles. ABDOMEN: Soft, nontender. Legs are no edema. No swelling. CENTRAL NERVOUS SYSTEM: No focal deficits. LABS: WBC 6, hemoglobin 11.7, INR is 2.9, and creatinine is 26. ASSESSMENT: 1. Chronic obstructive pulmonary disease acute exacerbation with acute acute purulent tracheobronchitis with acute hypoxic hypercarbic respiratory failure on mechanical ventilation. 2. Acute respiratory acidosis. 3. Anemia of chronic disease. 4. Possible congestive heart failure acute exacerbation, acute on chronic diastolic dysfunction, ejection fraction 55%. 5. Acute hyperkalemia. 6. History of atrial fibrillation. 7. Coumadin coagulopathy and Coumadin monitoring. 8. History of cerebrovascular accident, transient ischemic attack. 9. Dementia. 10.Hypertension. 11.Hyperlipidemia. 12.Degenerative joint disease. 13.History of pneumonia. 14.History of rheumatoid arthritis. 15.History of chronic hypoxic respiratory failure on 2 L nasal cannula. 17.FULL CODE. RECOMMENDATIONS AND DISCUSSION: Recommend to continue current medications, management and symptomatic treatment. Continue with continue the current medications. Otherwise, at this time, I recommend continue the broad-spectrum IV antibiotics, steroids. Monitor blood sugars closely. Intensive bronchodilator treatment. Otherwise closely follow with Dr. Yañez. Prognosis guarded because of multiple complex medical issues. Further recommendations to follow. Patient is on IV Zosyn. Cultures are negative so far. Further recommendations to follow. A chest x-ray reviewed as mentioned earlier. I would also recommend a BNP level. MMODL / IJN: [id number] / MTDD
[2018-07-14 23:58] LABS: Glucose,Whole Blood 185 mg/dL (75-99)
[2018-07-15] MEDS: PROPOFOL 1,000 MG in EMPTY BAG 1 BAG IV SCH ×5 (01:44→23:41)
[2018-07-15] MEDS: IPRATROPIUM-ALBUTEROL 3 ML NEB INHALATION SCH ×6 (03:18→23:12)
[2018-07-15] MEDS: methylPREDNISolone SOD SUCCI 125 MG/2 ML VIAL IV SCH ×3 (05:18→18:10)
[2018-07-15 05:28] LABS: ABG Base Excess 14.7 mmol/L; ABG Oxygen Saturation 97.5 % (94-97); ABG PCO2 66 mmHg (35-45); ABG PH 7.39 (7.35-7.45); ABG PO2 86 mmHg (83-108); ABG TCO2 42 mmol/L (19-24)
[2018-07-15] MEDS: INSULIN ASPART 100 UNIT/ML 1 ML 10 ML VIAL SQ SCH ×3 (05:42→18:11)
[2018-07-15 05:45] LABS: HCT 35.9 % (39.0-53.0); HGB 11.3 gm/dL (13.0-17.5); MCH 32.1 pg (25.0-35.0); MCHC 31.4 g/dL (31.0-37.0); MCV 102.3 fL (80.0-100.0); Macrocytosis Slight; Mean Platelet Volume 7.9; Platelet Count 145 k/uL (150-450); RBC 3.51 m/uL (4.30-5.90); RDW 14.2 % (11.5-15.5); WBC 6.5 k/uL (3.8-10.6)
[2018-07-15 05:45] LABS: ABG HCO3 40 mmol/L (21-25)
[2018-07-15 05:50] LABS: Glucose,Whole Blood 179 mg/dL (75-99)
[2018-07-15 05:50] LABS: Partial Thromboplastin Time 48.1 sec (22.0-30.0); Prothrombin Time 19.2 sec (9.0-12.0)
[2018-07-15 06:20] LABS: Anion Gap 3 mmol/L; Blood Urea Nitrogen 29 mg/dL (9-20); Calcium 8.4 mg/dL (8.4-10.2); Carbon Dioxide 37 mmol/L (22-30); Chloride 104 mmol/L (98-107); Glucose 177 mg/dL (74-99); Magnesium 2.5 mg/dL (1.6-2.3); Phosphorus 3.1 mg/dL (2.5-4.5); Potassium 4.2 mmol/L (3.5-5.1); Sodium 144 mmol/L (137-145)
[2018-07-15 07:20] LABS: ABG HCO3 40 mmol/L (21-25); ABG PCO2 86 mmHg (35-45)
--- NOTE | 2018-07-15 07:30 | XR ---
EXAMINATION TYPE: XR chest 1V portable DATE OF EXAM: 07/15/2018 CLINICAL HISTORY: Difficulty breathing progress study. TECHNIQUE: Single AP portable upright view of the chest is obtained. COMPARISON: Chest x-ray from one day earlier and older studies. FINDINGS: An endotracheal tube and orogastric tube are redemonstrated. Cannot visualize tip of oroga stric tube on current or most recent prior x-ray. There is background chronic emphysematous change with upper lung parenchymal scarring and bilateral h ilar superior retraction. No pleural effusion or pneumothorax is seen bilaterally. Cardiac silhouette size is stable and mildly enlarged with ectatic thoracic aorta. Osseous structures are intact. IMPRESSION: Overall stable findings, advanced emphysematous change with upper lung scarring and mil d cardiomegaly but no suspicious focal infiltrate.
[2018-07-15] MEDS: BUDESONIDE 1 MG/2 ML NEBU INHALATION SCH ×2 (07:40→20:07)
[2018-07-15] MEDS: PIPERACILLIN-TAZOBACTAM 3.375 GM in SODIUM CHLORIDE 0.9% 100 ML IVPB SCH ×2 (08:53→17:31)
[2018-07-15] MEDS: PANTOPRAZOLE 40 MG/10 ML VIAL IV SCH (10:24)
[2018-07-15] MEDS: CHLORHEXIDINE GLUCONATE 15 ML CUP MUCOUS MEM SCH ×2 (10:25→20:55)
[2018-07-15] MEDS: FUROSEMIDE 10 MG/ML 2 ML VIAL IV SCH ×2 (10:25→20:55)
[2018-07-15 11:58] LABS: Glucose,Whole Blood 164 mg/dL (75-99)
[2018-07-15] MEDS: SODIUM CHLORIDE 0.9% 1,000 ML IV SCH (12:05)
--- NOTE | 2018-07-15 13:47 | PN ---
PROGRESS NOTE DATE OF SERVICE: 07/15/2018 This is a pulmonary/critical care progress note. This is an 82-year-old male who was admitted on July 12 and intubated on the same day. He apparently carries a diagnosis of severe/end-stage COPD with an FEV1 which is apparently 20% of predicted. His primary doctor is Dr. Mikael yanez in [place]. The patient did have an interruption of sedation yesterday, but he was very agitated and 0 tipple mechanic suggested that he would not wean. Hence, according to Dr. Yañez's note, he was re-sedated. The patient is currently on the volume assist-control mode rate of 20, tidal volume 450, FiO2 of 35%, PEEP of 5. Blood gases show PO2 of 86, pCO2 of 66, and pH 7.39. The patient is getting propofol at 40 mcg/kg per minute, IV heparin via weight based protocol, a 0.9 IV at 50 mL an hour and Vital HP at 50 with a goal of 50 mL/hours. Thus far, microbiology is negative. Today 0 mechanics showed a peak airway pressure of 33, plateau pressure of 18, and airways resistance calculated to be about 15 cm of water per L per 2nd. In addition to his underlying severe COPD, which caused him to have both acute on chronic hypoxemic and hypercapnic respiratory failure, the patient has a history of chronic atrial fibrillation, TIA, dementia, hypertension, hyperlipidemia, BPH, osteoarthritis, remote history of nicotine dependence, BPH, and possible right upper lobe pneumonia. I did talk to his daughter, Sophia, who was in the room. She does not think the dad would want a tracheostomy and PEG tube placement. They also want a limitation on life support. She is going to talk to her brothers and sisters about this and also her stepmother about this. Current vital signs are reviewed. Temperature is 98.1, heart rate is 93, respiratory rate 20, blood pressure 117/68, mean of 84 and saturations are mid 90s on 35% FiO2 and 5 of PEEP. Appears in no acute distress. The patient is currently sedated on propofol. HEENT examination is grossly unremarkable. There is an orally placed endotracheal tube and NG tube. Neck is supple. Full range of motion. No adenopathy, thyromegaly or neck vein distention. Cardiovascular examination reveals regular rhythm rate. Heart rate in the 90s. It is regular. S1, S2 normal. No murmur. Lungs reveal severely diminished breath sounds throughout. There is coarse expiratory rhonchi. No crackles. A few scattered wheezes. Abdomen is soft. Bowel sounds are heard. Extremities are intact. No cyanosis, clubbing, or edema. Skin is without rash. Neurologic examination could not be properly assessed as the patient is currently sedated. LAB DATA: Reviewed. White count 6.5, hemoglobin 9.3, hematocrit 35.9, platelet count 145,000. PT 19.2, INR 2, PTT is 48. Blood gases as mentioned show a PaO2 of 86, a PaCO2 of 66, and pH which is normal at 7.39. Sodium 144, potassium 4.2, chloride 104, CO2 of 37, anion gap 3. BUN and creatinine were 29 and 0.69. Microbiologic studies including sputum and urine sampling and blood cultures thus far are all negative. Medications are reviewed. ASSESSMENT: 1. Acute on chronic hypoxemic hypercapnic respiratory failure, secondary to severe chronic obstructive pulmonary disease (FEV1 20% of predicted), requiring intubation and ongoing mechanical ventilation beginning on July 12. 2. Possible right upper lobe community-acquired pneumonia. 3. Advanced end-stage oxygen-dependent chronic obstructive pulmonary disease. 4. History of chronic atrial fibrillation. 5. History of transient ischemic attack. 6. History of dementia. 7. Hypertension by history. 8. History of hyperlipidemia. 9. History of benign prostatic hypertrophy. 10.History of degenerative joint disease. 11.History of remote nicotine dependence. 12.Possible right upper lobe community-acquired pneumonia. PLAN: The patient will continue on current medications. The patient will likely not be ready for weaning, although we will give the patient a daily interruption of sedation and possible spontaneous breathing trial. Respiratory mechanics would predict that the patient is still a number of days away. His peak to plateau difference is still just15 and his airways resistance is calculated to be 15 cm of water per L per 2nd. We did talk to the family about code status and about long-term intubation. It appears that he would probably not want a tracheostomy tube. She will discuss this with the stepmother and brothers and sisters. Additional recommendations and suggestions are forthcoming. Prognosis is guarded. MMODL / IJN: [id number] /
--- NOTE | 2018-07-15 13:59 | PN ---
PROGRESS NOTE ADDENDUM: CRITICAL CARE TIME: 33 minutes. SHIRIN / MARSHAN: [id number] /
[2018-07-15] MEDS: LEVOFLOXACIN 500MG-D5W PMX 500 MG in DEXTROSE/WATER 1 100ML.BAG IVPB SCH (17:30)
[2018-07-15 18:07] LABS: Glucose,Whole Blood 177 mg/dL (75-99)
--- NOTE | 2018-07-15 19:25 | PN ---
PROGRESS NOTE DATE OF SERVICE: 07/15/2018. This 82-year-old gentleman who was admitted with COPD exacerbation as well as acute respiratory failure is being closely monitored. Patient has acute respiratory acidosis. Patient also reports CHF also. The patient is mechanically ventilated and sedated. Vent settings are noted. Dr. Sharma is following the patient closely. Chest x- ray which was reviewed by me showed advanced stable findings with focal scarring and no suspicious infiltrates. The cultures are negative at this time. PAST MEDICAL HISTORY: Reviewed. REVIEW OF SYSTEMS: Could not be taken. Patient mechanically ventilated and sedated. CURRENT MEDICATIONS ARE: Reviewed and include: 1. DuoNeb q.i.d. and p.r.n. 2. Pulmicort 1 mg b.i.d. 3. Peridex 15 mL b.i.d. 4. Lasix 20 mg b.i.d. 5. Heparin. 6. NovoLog a.c. and q.h.s. 7. Levaquin 500 mg. 8. Solu-Medrol 60 IV q.8h. 9. P.r.n. medications. 10.Narcan. 11.Protonix. 12.Zosyn 3.5 IV q.8h. 13.Propofol. PHYSICAL EXAM: Patient is alert, oriented x3. Pulse is 94, blood pressure 140/72, respiration 30, temp is normal. Pulse ox 94% on 34% FiO2. HEENT: Conjunctivae normal. NECK: No jugular venous distention. Cardiovascular: S1, S2 muffled. RESPIRATORY: Breath sounds diminished at the bases. Bilateral scattered rhonchi and crackles. Expiratory wheezing. Chest emphysematous. ABDOMEN: Soft, nontender. No mass palpable. Legs: No edema. No swelling. Central nervous system: The patient mechanically sedated. Skin: No ulcer, rash or bleeding. JOINTS: No active deforming arthropathy. LAB STUDIES: WBC 6.2, hemoglobin 11.3, ABGs noted. Accu-Cheks 179, 164, 177. ASSESSMENT: 1. Chronic obstructive pulmonary disease exacerbation with acute purulent tracheobronchitis with acute hypoxic hypercarbic respiratory failure on mechanical ventilation. 2. Acute respiratory acidosis. 3. Anemia of chronic disease. 4. Possible congestive heart failure acute exacerbation with acute on chronic diastolic dysfunction, ejection fraction 50 to 55%. 5. Acute hyperkalemia. 6. History atrial fibrillation. 7. Coumadin coagulopathy and Coumadin monitoring. 8. History of cerebrovascular accident, transient ischemic attack. 9. Dementia. 10.Hypertension. 11.Hyperlipidemia. 12.History of degenerative joint disease. 13.History of pneumonia. 14.History of rheumatoid arthritis. 15.History of chronic hypoxic respiratory failure on 2 L nasal cannula. 16.FULL CODE. RECOMMENDATIONS AND DISCUSSION: Continue current medications. Continue to monitor. Symptomatic treatment. Otherwise at this time I recommend continue the bronchodilators. Continue with mechanical ventilation. Continue with empiric antibiotics. Continue the rest of medications. Cultures are negative. Prognosis guarded. Discussed with family. We will closely follow with Dr. Sharma. Further recommendations to follow. MMODL / IJN: [id number] /
[2018-07-15] MEDS: HEPARIN SOD,PORK IN 0.45% NACL 25,000 UNIT in 0.45% NACL 1 250ML.BAG IV SCH (20:55)
[2018-07-15 23:15] LABS: Glucose,Whole Blood 155 mg/dL (75-99)
[2018-07-16] MEDS: PIPERACILLIN-TAZOBACTAM 3.375 GM in SODIUM CHLORIDE 0.9% 100 ML IVPB SCH ×2 (00:05→08:16)
[2018-07-16] MEDS: IPRATROPIUM-ALBUTEROL 3 ML NEB INHALATION SCH ×3 (03:24→10:49)
[2018-07-16] MEDS: PROPOFOL 1,000 MG in EMPTY BAG 1 BAG IV SCH ×2 (03:41→08:16)
[2018-07-16 05:04] LABS: ABG Base Excess 19.3 mmol/L; ABG Oxygen Saturation 96.4 % (94-97); ABG PCO2 67 mmHg (35-45); ABG PH 7.42 (7.35-7.45); ABG PO2 77 mmHg (83-108); ABG TCO2 46 mmol/L (19-24)
[2018-07-16 05:12] LABS: HCT 35.6 % (39.0-53.0); MCH 34.3 pg (25.0-35.0); MCHC 33.8 g/dL (31.0-37.0); MCV 101.6 fL (80.0-100.0); Macrocytosis Slight; Mean Platelet Volume 8.2; Platelet Count 129 k/uL (150-450); RBC 3.51 m/uL (4.30-5.90); WBC 6.5 k/uL (3.8-10.6)
[2018-07-16 05:22] LABS: INR 1.3 (<1.2); Partial Thromboplastin Time 44.8 sec (22.0-30.0); Prothrombin Time 13.7 sec (9.0-12.0)
[2018-07-16 05:28] LABS: Potassium 4.4 mmol/L (3.5-5.1)
[2018-07-16 05:29] LABS: Anion Gap 2 mmol/L; Blood Urea Nitrogen 37 mg/dL (9-20); Calcium 8.5 mg/dL (8.4-10.2); Carbon Dioxide 40 mmol/L (22-30); Chloride 101 mmol/L (98-107); Glucose 190 mg/dL (74-99); Magnesium 2.7 mg/dL (1.6-2.3); Phosphorus 3.6 mg/dL (2.5-4.5); Sodium 143 mmol/L (137-145)
[2018-07-16 05:34] LABS: ABG HCO3 44 mmol/L (21-25)
[2018-07-16 06:11] LABS: Glucose,Whole Blood 183 mg/dL (75-99)
[2018-07-16] MEDS: INSULIN ASPART 100 UNIT/ML 1 ML 10 ML VIAL SQ SCH ×3 (06:27→12:09)
[2018-07-16] MEDS: methylPREDNISolone SOD SUCCI 125 MG/2 ML VIAL IV SCH ×3 (06:27→12:09)
[2018-07-16] MEDS: BUDESONIDE 1 MG/2 ML NEBU INHALATION SCH (07:56)
[2018-07-16] MEDS: PANTOPRAZOLE 40 MG/10 ML VIAL IV SCH (08:14)
[2018-07-16] MEDS: FUROSEMIDE 10 MG/ML 2 ML VIAL IV SCH (08:15)
[2018-07-16] MEDS: CHLORHEXIDINE GLUCONATE 15 ML CUP MUCOUS MEM SCH (08:15)
[2018-07-16 08:46] VITALS: TEMP 98.6
--- NOTE | 2018-07-16 08:48 | XR ---
EXAMINATION TYPE: XR chest 1V portable DATE OF EXAM: 07/16/2018 Comparison: 07/15/2018 Clinical History: 82-year-old male Tube placement Findings: ET tube satisfactory. Underpenetrated exam. Unable to visualize the NG tube beyond the mid thoracic l evel. Heart upper limits of normal in size. Hyperinflation. Mild prominence. No sizable effusion. Pat dario upper lobe opacities are similar. Prominence of the bilateral prachi Impression: Stable COPD and mild cardiomegaly. Suspect underlying pulmonary arterial hypertension. Patchy upper l demetra opacities remain and probably represent scarring. Infiltrates considered less likely. Clinically correlate.
--- NOTE | 2018-07-16 09:21 | P.PN ---
Subjective Progress Note Date: 07/16/18 Principal diagnosis: Acute hypoxic and hypercapnic respiratory failure secondary to COPD exacerbation requiring intubation and mechanical ventilation. This is an 82-year-old white male with history of severe COPD, patient was actually a transfer from [facility], he presented earlier today with acute exacerbation of COPD, and acute hypercapnic respiratory failure requiring intubation and mechanical ventilation. Patient was transferred to our facility for further treatment. Apparently he was in the ER yesterday complaining of cough wheezing and shortness of breath, patient was given the option of being admitted to the hospital or discharge home. Patient chose to go home on oral antibiotics and steroids, but apparently that was a bad choice. When he was seen again in the ER today, patient was in extreme respiratory distress, intubated, placed on mechanical ventilation, and transferred to our facility. Back on 02/15/2018, patient was actually admitted to our facility with a similar presentation. And he was seen at the time by Dr. Simms. Patient was on mechanical ventilation for 3 days. And he was eventually extubated and discharged home. Going back to a history of COPD, patient clearly has history of advanced COPD, oxygen dependent, maintained normally on Pulmicort Respules and DuoNeb updrafts 4 times a day and when necessary. He normally sees S/P ismael for his COPD on outpatient basis. Chest x-ray showed increased interstitial markings especially in the right perihilar area. No clear-cut evidence of infiltrate. Looking at his ventilator settings, he is presently on tidal volume of 450, assist control rate of 20, FiO2 of 50% which is titrated down based on O2 saturation, PEEP of 5. Patient has a 7.5 endotracheal tube. He is on propofol at 5 mcg/kg/m, not requiring any pressors at this point, he is also on IV fluid at 125 mL per hour which I cut down. I have also started the patient on antibiotics in the form of Zosyn and Levaquin, I have recommended that we continue his updrafts, steroids, and placed on heparin since he is normally on Coumadin. Known to have history of chronic atrial fibrillation. According to the family, the patient has been ill only for the last couple of days. Patient was reevaluated today on 07/13/2018, patient remains on mechanical ventilation, remains in the ICU, his ventilator settings are basically the same , assist control rate of 20, tidal volume of 450, FiO2 of 40%, and PEEP of 5. Patient remains on propofol at 36 mcg/kg/m, not requiring any pressors, fully sedated, had issues with the urine output last night, however he responded well to fluid boluses, and we increased his IV fluid to 100 mL per hour. Remains on antibiotics, chest x-ray showed clearance of the opacity in the right perihilar area. Peak airway pressure is in the mid 30s, plateau pressures is about 21. ABG this morning showed a pO2 of 92 pCO2 of 61 pH of 7.37. Electrolytes and renal profile were noted. CBC is relatively normal, hemoglobin is 11.5, PTT is therapeutic, patient is on heparin because he is normally on Coumadin at home for chronic atrial fibrillation. Reevaluated today on 07/14/2018, patient remains on mechanical ventilation, remains in the ICU. His ventilator settings are assist control rate of 20 tidal volume of 450 FiO2 of 35%, PEEP of 5. Peak airway pressure is 34, plateau pressure is 21. ABG showed a pO2 of 107 pCO2 of 65 pH of 7.35, hence cut down his FiO2 down to 35%. Propofol was tapered down, and the patient was noted to be responsive, following simple instructions. However on physical examination continues to have significant rhonchi and wheezes, and I felt there is no possible way that the patient could be weaned and extubated today. Hence recommending increasing the dose of the propofol, and keep the patient on mechanical ventilation. Reviewed all his meds, discussed his condition with family, and made aware that he is not ready for weaning and extubation at this point. Patient clearly has severe underlying COPD, and his baseline pCO2 is probably in the 60s. Chest x-ray showed minimal prominence of the pulmonary vasculature, hence may cut down the IV fluids and recommend a gentle diuresis on the patient CBC as well as basic metabolic profile noted to be normal. Reevaluated again today on 07/16/2018. She remains intubated, on mechanical ventilation, sedated, current IVs include 0.9 normal saline at a rate of 50 ML per hour, heparin drip per weight-based protocol, propofol at 40 mics per kilo per minute. Current ventilator settings include assist control mode with a rate of 20, tidal vital 450, FiO2 35%, and PEEP of 5. This point what gases were reviewed with Dr. Hensley, showed pO2 of 77, pCO2 67, and pH of 7.42. Urine and sputum culture showed no growth. Today's chest x-ray has been reviewed with Dr. Hensley, and showed table COPD and mild cardiomegaly, suspect underlying pulmonary arterial hypertension, patchy upper lung opacities representing scarring, and bilateral infiltrates related to atelectasis. Antibiotic coverage includes Levaquin and Zosyn. Patient has been afebrile, hemodynamically stable. Today's labs have been reviewed, WBC 6.5, hemoglobin is 12.0, INR is 1.3, sodium is 143, potassium is 4.4, chloride is 101, CO2 is 40 , B1 is 37 creatinine was 0.57. Yesterday patient was given a sedation holiday , and spontaneous breathing trial with pressure support of 8 and CPAP of 5 for 1 hour, patient failed the weaning trial, was placed back on assist control mode and recently dated. Today's peak airway pressure was 33, and plateau pressure was 21, improved from yesterday. Lung sounds are relatively clear, diminished at the bases, no rhonchi or wheezes appreciated on today's exam. CODE STATUS was discussed with the patient's family, and the decision was made to make him a DO NOT RESUSCITATE, her was supposed to talk to the rest of the family to confirm that no heroics are to be done, and the patient would not want a tracheostomy tube and PEG tube placement. Objective - Vital Signs Vital signs: Vital Signs Temp 98.6 F 07/16/18 08:00 Pulse 85 07/16/18 08:23 Resp 28 H 07/16/18 08:00 BP 113/70 07/16/18 08:00 Pulse Ox 93 L 07/16/18 08:00 Intake & Output 07/15/18 07/16/18 07/16/18 18:59 06:59 18:59 Intake Total 1500 1166.76 252 Output Total 1179 1560 60 Balance 321 -393.24 192 Weight 95.7 kg Intake: IV 550 775 50 Piperacillin-Tazobactam 3 175 .375 gm In Sodium Chloride 0.9% 100 ml @ 25 mls/hr IVPB Q8HR [facility] Rx# :[id number] Sodium Chloride 0.9% 1, 550 600 50 000 ml @ 50 mls/hr IV . Q20H [facility] Rx#:[id number] Intake, IV Titration 500 191.76 202 Amount Heparin Sod,Pork in 0.45% 250 102 NaCl 25,000 unit In 0.45 % NaCl 1 250ml.bag @ 10. 022 UNITS/KG/HR 10 mls/hr IV .Q24H [facility] Rx#: [id number] Propofol 1,000 mg In 200 191.76 100 Empty Bag 1 bag @ Titrate IV .Q0M [facility] Rx#: [id number] Sodium Chloride 0.9% 1, 50 000 ml @ 50 mls/hr IV . Q20H [facility] Rx#:[id number] Oral 50 Tube Feeding 400 200 Output: Urine 1179 1560 60 Other: Voiding Method Indwelling Catheter Indwelling Catheter - Exam Physical Exam: Revealed 82-year-old white male sedated, on mechanical ventilation, comfortable, in no distress. Head: Atraumatic, normocephalic. HEENT:[Neck is supple.] [No neck masses.] [No thyromegaly.] [No JVD.] PERRLA, EOMI, no icterus, moist mucous membranes noted. Chest: Diminished breath sound bilaterally, no rhonchi, no wheezes Cardiac Exam: [Irregular irregular rhythm Normal S1 and S2, no S3 gallop, no murmur.] Abdomen: [Obese, Soft, nontender, no megaly, no rebound, no guarding, normal bowel sounds.] Extremities: [No clubbing, no edema, no cyanosis.] Neurological Exam: Arousable, followed simple instructions. However remains on propofol. Skin: No rashes. Lymphatics: No lymphadenopathy. - Labs CBC & Chem 7: 07/16/18 04:51 07/16/18 04:51 Labs: Abnormal Lab Results - Last 24 Hours (Table) 07/15/18 07/15/18 07/15/18 Range/Units 11:54 17:54 23:13 RBC (4.30-5.90) m/uL Hgb (13.0-17.5) gm/dL Hct (39.0-53.0) % MCV (80.0-100.0) fL Plt Count (150-450) k/uL PT (9.0-12.0) sec INR (<1.2) APTT (22.0-30.0) sec ABG pCO2 (35-45) mmHg ABG pO2 (83-108) mmHg ABG HCO3 (21-25) mmol/L ABG Total CO2 (19-24) mmol/L Carbon Dioxide (22-30) mmol/L BUN (9-20) mg/dL Creatinine (0.66-1.25) mg/dL Glucose (74-99) mg/dL POC Glucose (mg/dL) 164 H 177 H 155 H (75-99) mg/dL Magnesium (1.6-2.3) mg/dL 07/16/18 07/16/18 07/16/18 Range/Units 04:51 04:51 04:51 RBC 3.51 L (4.30-5.90) m/uL Hgb 12.0 L (13.0-17.5) gm/dL Hct 35.6 L (39.0-53.0) % MCV 101.6 H (80.0-100.0) fL Plt Count 129 L (150-450) k/uL PT 13.7 H (9.0-12.0) sec INR 1.3 H (<1.2) APTT 44.8 H (22.0-30.0) sec ABG pCO2 (35-45) mmHg ABG pO2 (83-108) mmHg ABG HCO3 (21-25) mmol/L ABG Total CO2 (19-24) mmol/L Carbon Dioxide 40 H (22-30) mmol/L BUN 37 H (9-20) mg/dL Creatinine 0.57 L (0.66-1.25) mg/dL Glucose 190 H (74-99) mg/dL POC Glucose (mg/dL) (75-99) mg/dL Magnesium 2.7 H (1.6-2.3) mg/dL 07/16/18 07/16/18 Range/Units 04:57 06:07 RBC (4.30-5.90) m/uL Hgb (13.0-17.5) gm/dL Hct (39.0-53.0) % MCV (80.0-100.0) fL Plt Count (150-450) k/uL PT (9.0-12.0) sec INR (<1.2) APTT (22.0-30.0) sec ABG pCO2 67 H (35-45) mmHg ABG pO2 77 L (83-108) mmHg ABG HCO3 44 H* (21-25) mmol/L ABG Total CO2 46 H (19-24) mmol/L Carbon Dioxide (22-30) mmol/L BUN (9-20) mg/dL Creatinine (0.66-1.25) mg/dL Glucose (74-99) mg/dL POC Glucose (mg/dL) 183 H (75-99) mg/dL Magnesium (1.6-2.3) mg/dL Assessment and Plan Plan: 1 acute on chronic hypoxic/hypercapnic respiratory failure likely on the basis of COPD. Suspect an upper lobe pneumonia. Community-acquired likely. Although the chest x-ray showed significant improvement today compared to the chest x-ray done yesterday. 2 advanced end-stage COPD 3 chronic hypoxic respiratory failure secondary to COPD 4 chronic atrial fibrillation, on Coumadin, subtherapeutic on admission. 5TIA, history of 6 dementia 7 hypertension 8 hyperlipidemia 9 BPH 10 osteoarthritis 11 remote history of nicotine dependence 12 history of benign prostatic hypertrophy 15 possible right upper lobe community-acquired pneumonia. Chest x-ray today seems to be is more reassuring. 16 mild prominence of the pulmonary vasculature on the chest x-ray today, findings are nonspecific, however the patient may improve with gentle diuresis. Plan: We will give the patient on a sedation holiday today, and another trial of spontaneous breathing. Today's chest x-ray has been reviewed with Dr. Sharma, and shows bilateral infiltrates, possibly related to atelectasis, stable COPD, bilateral apical scarring. Hemodynamically she stable, no fever or chills, continue current antibiotic coverage, microbiology results are negative thus far. CODE STATUS were discussed with the patient's family, and and they stated patient would not want tracheostomy or PEG tube placement in case of failure to wean. He is a DO NOT RESUSCITATE CODE STATUS at this time. They're inclined to proceed with hospice and comfort care. As a matter fact they are requesting hospice consult now, and to proceed with extubation with a goal of comfort care Critical care time is over 30 minutes, I performed a history & physical examination of the patient and discussed their management with my nurse practitioner, Paula Donis. I reviewed the nurse practitioner's note and agree with the documented findings and plan of care. Lung sounds are positive for diminished. The findings and the impression was discussed with the patient. I attest to the documentation by the nurse practitioner. Time with Patient: Greater than 30
[2018-07-16 12:18] LABS: Glucose,Whole Blood 158 mg/dL (75-99)
[2018-07-16 14:33] VITALS: BMI 29.4
[2018-07-16 15:01] VITALS: BP 110/73; PULSE 96; RESP 21
== END 2018-07-16 15:06 | disposition hospice, inpatient (51) | DRG 207 ==
LOC: EC 11:41 → 2SICU 13:09
PROVIDERS: ADMIT Internal Medicine; ATTEND Internal Medicine
PROC: 5A1955Z Respiratory Ventilation, Greater than 96 Consecutive Hours (ICD-10-PCS; principal; 2018-07-12)
DX: J96.21 Acute and chronic respiratory failure with hypoxia (principal); I50.33 Acute on chronic diastolic (congestive) heart failure; J18.9 Pneumonia, unspecified organism; E87.2 Acidosis; J44.0 Chronic obstructive pulmonary disease with (acute) lower respiratory infection; J44.1 Chronic obstructive pulmonary disease with (acute) exacerbation; J96.22 Acute and chronic respiratory failure with hypercapnia; Z66 Do not resuscitate; Z51.5 Encounter for palliative care; E87.5 Hyperkalemia; I11.0 Hypertensive heart disease with heart failure; I48.2 Chronic atrial fibrillation; M06.9 Rheumatoid arthritis, unspecified; D63.8 Anemia in other chronic diseases classified elsewhere; E11.9 Type 2 diabetes mellitus without complications; E78.5 Hyperlipidemia, unspecified; F03.90 Unspecified dementia, unspecified severity, without behavioral disturbance, psychotic disturbance, mood disturbance, and anxiety; I25.10 Atherosclerotic heart disease of native coronary artery without angina pectoris; J20.9 Acute bronchitis, unspecified; M19.90 Unspecified osteoarthritis, unspecified site; N40.0 Benign prostatic hyperplasia without lower urinary tract symptoms; F32.9 Major depressive disorder, single episode, unspecified; R45.1 Restlessness and agitation; R79.1 Abnormal coagulation profile; Z79.01 Long term (current) use of anticoagulants; Z79.52 Long term (current) use of systemic steroids; Z79.899 Other long term (current) drug therapy; Z99.81 Dependence on supplemental oxygen; Z87.891 Personal history of nicotine dependence; Z87.01 Personal history of pneumonia (recurrent); Z86.73 Personal history of transient ischemic attack (TIA), and cerebral infarction without residual deficits; Z98.42 Cataract extraction status, left eye; Z98.41 Cataract extraction status, right eye; Z96.1 Presence of intraocular lens; Z82.49 Family history of ischemic heart disease and other diseases of the circulatory system; Z82.5 Family history of asthma and other chronic lower respiratory diseases
CPT/HCPCS: 36600; 71045; 80048; 80053; 81001; 82805; 83036; 83605; 83735; 83880; 84100; 85025; 85027; 85610; 85730; 87070; 87086; 87205; 94002; 94003; 94640; 96365; 96375; 99291

== ENCOUNTER 2018-07-16 13:23 | Inpatient (IN) | payer MEDICAID ==
[2018-07-16] MEDS ORDERED: MORPHINE SULFATE 4 MG/ML SYRINGE IVP ONE (13:29)
[2018-07-16] MEDS ORDERED: ACETAMINOPHEN SUPPOSITORY 650 MG SUPP RECTAL PRN (13:29)
[2018-07-16] MEDS ORDERED: ONDANSETRON 4 MG/2 ML VIAL IVP PRN (13:38)
[2018-07-16] MEDS ORDERED: ATROPINE OPHTH SOLN 1% 5ML BTL SUBLINGUAL PRN (13:38)
[2018-07-16] MEDS ORDERED: BISACODYL 10 MG SUPP RECTAL PRN (13:49)
[2018-07-16] MEDS ORDERED: LORazepam 2 MG/ML INJ IV STA (13:49)
[2018-07-16] MEDS ORDERED: SCOPOLAMINE 1.5MG/72HR PATCH TRANSDERM SCH (14:30)
[2018-07-16] MEDS ORDERED: MORPHINE SULFATE (100 MG/2 ML) 100 MG in SODIUM CHLORIDE 0.9% 100 ML IV SCH (14:30)
[2018-07-16 19:02] VITALS: PULSE 129; RESP 40
== END 2018-07-16 20:15 | disposition expired | DRG 951 ==
LOC: 2SICU 15:07
PROVIDERS: ADMIT Internal Medicine; ATTEND Internal Medicine
DX: Z51.5 Encounter for palliative care (principal); J96.21 Acute and chronic respiratory failure with hypoxia; J44.1 Chronic obstructive pulmonary disease with (acute) exacerbation; J44.0 Chronic obstructive pulmonary disease with (acute) lower respiratory infection; E87.2 Acidosis; J20.9 Acute bronchitis, unspecified; I48.91 Unspecified atrial fibrillation; I25.10 Atherosclerotic heart disease of native coronary artery without angina pectoris; I50.9 Heart failure, unspecified; F03.90 Unspecified dementia, unspecified severity, without behavioral disturbance, psychotic disturbance, mood disturbance, and anxiety; I11.0 Hypertensive heart disease with heart failure; E78.5 Hyperlipidemia, unspecified; M19.90 Unspecified osteoarthritis, unspecified site; M06.9 Rheumatoid arthritis, unspecified; D63.8 Anemia in other chronic diseases classified elsewhere; E87.5 Hyperkalemia; Z79.01 Long term (current) use of anticoagulants; Z79.52 Long term (current) use of systemic steroids; Z79.899 Other long term (current) drug therapy; Z86.73 Personal history of transient ischemic attack (TIA), and cerebral infarction without residual deficits; Z87.01 Personal history of pneumonia (recurrent); Z87.891 Personal history of nicotine dependence; Z82.49 Family history of ischemic heart disease and other diseases of the circulatory system; Z82.5 Family history of asthma and other chronic lower respiratory diseases